=== PATIENT | male | born 1955 ===

== ENCOUNTER 2019-01-28 13:37 | Inpatient (IN) | payer MEDICARE ==
[2019-01-28] MEDS ORDERED: HEPARIN 1,000 UNIT/1 ML VIAL IV ONE (14:18)
[2019-01-28] MEDS ORDERED: SODIUM CHLORIDE 0.9% 1000 ML 1,000 ML IV ONE (14:18)
[2019-01-28] MEDS ORDERED: TICAGRELOR 90 MG TAB PO ONE (14:21)
--- NOTE | 2019-01-28 14:27 | Emergency Department Report ---
ED Chest Pain HPI - General Chief Complaint: Chest Pain Stated Complaint: CHEST PAIN Time Seen by Provider: 01/28/19 13:49 Source: patient, EMS, old records reviewed (none) Mode of arrival: Stretcher Limitations: Language Barrier (gas operations analyst used ) - History of Present Illness Initial Comments: 63-year-old male with a past medical history of diabetes, hypertension, elevated cholesterol presents to the hospital with complaints of chest pain since 9 AM. Pain started at the throat area and radiated to the chest and left arm 2-point finger. Patient had one episode of vomiting about 10 AM. Postive reported diaphoresis. Patient denies shortness of breath. Patient went to a outpatient clinic and was sent to the ER for evaluation without seeing the doctor. Patient denies history of CAD reports a preop cath and 4 years ago and he denies smoking history. Does not take aspirin daily. Patient's pain was 10/10 upon EMS arrival and decreased to 5/10 after nitroglycerin and aspirin. Severity scale (0 -10): 4 - Related Data Allergies Allergy/AdvReac Type Severity Reaction Status Date / Time No Known Allergies Allergy Unverified 01/28/19 13:50 Heart Score - HEART Score History: Moderately suspicious EKG: Non-specific Age: 45-65 Risk factors: > 3 risk factors or hx of atherosclerotic disease Troponin: 1-3x normal limit HEART Score: 6 ED Review of Systems ROS: Stated complaint: CHEST PAIN Other details as noted in HPI Comment: All other systems reviewed and negative ED Past Medical Hx - Past Medical History Hx Hypertension: Yes Hx Diabetes: Yes Additional medical history: hyperlipidemia - Surgical History Additional Surgical History: hernia repair - Social History Smoking Status: Never Smoker ED Physical Exam - General Limitations: Language Barrier - Other Other exam information: General: No acute distress Head: Atraumatic Eyes: normal appearance ENT: Moist mucous membranes Neck: Normal appearance, no midline tenderness Chest: Clear to auscultation bilaterally CV: Regular rate and rhythm Abdomen: Soft, normal bowel sounds, nontender, nondistended, no rebound or guarding Back: Normal inspection Extremity: Normal inspection infection, full range of motion, no calf tenderness or leg edema Neuro: Alert O x 3, no facial asymmetry, speech clear, no gross motor sensory deficit Psych: Appropriate behavior Skin: No rash ED Course Vital Signs 01/28/19 01/28/19 01/28/19 13:44 14:04 14:07 Temperature 98.1 F 98.3 F Pulse Rate 82 94 H Respiratory 18 18 20 Rate Blood Pressure 125/78 Blood Pressure 129/87 [Left] O2 Sat by Pulse 97 96 Oximetry 01/28/19 01/28/19 01/28/19 14:10 14:15 14:20 Temperature Pulse Rate 82 82 82 Respiratory 14 22 13 Rate Blood Pressure 129/87 120/86 120/86 Blood Pressure [Left] O2 Sat by Pulse 97 97 97 Oximetry 01/28/19 01/28/19 16:15 16:30 Temperature 97.6 F Pulse Rate 71 43 L Respiratory 18 16 Rate Blood Pressure 120/81 120/78 Blood Pressure [Left] O2 Sat by Pulse 96 96 Oximetry - Consultations Consultation #1: 01/28/19 14:26 initial ems ekg reviewed and discussed with cardiology. No reciprocal changes. Were reassessed upon arrival 14:49 repeat ekg formed upon arrival and discussed with chandelier maker. Recommend right-sided and posterior leads. 14:20 right sided and post ekg's reviewed by chandelier maker. No STEMI, but will treat stat in industrial laborer for NSTEMi. NIELS score - Niels Score Age > 65: (0) No Aspirin use within the Past 7 Days: (0) No 3 or more CAD Risk Factors: (1) Yes 2 or more Angina events in past 24 hrs: (1) Yes Known CAD with more than 50% Stenosis: (0) No Elevated Cardiac Markers: (1) Yes ST Deviation Greater than 0.5mm: (1) Yes NIELS Score: 4 ED Medical Decision Making - Lab Data Result diagrams: 01/28/19 14:14 01/28/19 14:14 Lab Results 01/28/19 01/28/19 01/28/19 Range/Units 14:14 14:14 14:14 WBC 10.2 (4.5-11.0) K/mm3 RBC 4.66 (3.65-5.03) M/mm3 Hgb 14.5 (11.8-15.2) gm/dl Hct 43.0 (35.5-45.6) % MCV 92 (84-94) fl MCH 31 (28-32) pg MCHC 34 (32-34) % RDW 13.0 L (13.2-15.2) % Plt Count 158 (140-440) K/mm3 Lymph % (Auto) 9.2 L (13.4-35.0) % [place] % (Auto) 3.4 (0.0-7.3) % Eos % (Auto) 0.3 (0.0-4.3) % Baso % (Auto) 0.3 (0.0-1.8) % Lymph # 0.9 L (1.2-5.4) K/mm3 [place] # 0.3 (0.0-0.8) K/mm3 Eos # 0.0 (0.0-0.4) K/mm3 Baso # 0.0 (0.0-0.1) K/mm3 Seg Neutrophils % 86.8 H (40.0-70.0) % Seg Neutrophils # 8.9 H (1.8-7.7) K/mm3 PT 13.7 (12.2-14.9) Sec. INR 1.06 (0.87-1.13) APTT 26.1 (24.2-36.6) Sec. Sodium 140 (137-145) mmol/L Potassium 4.1 (3.6-5.0) mmol/L Chloride 102.9 (98-107) mmol/L Carbon Dioxide 18 L (22-30) mmol/L Anion Gap 23 mmol/L BUN 18 (9-20) mg/dL Creatinine 0.9 (0.8-1.5) mg/dL Estimated GFR > 60 ml/min BUN/Creatinine Ratio 20 % Glucose 226 H (75-100) mg/dL Calcium 9.0 (8.4-10.2) mg/dL Troponin T 0.484 H* (0.00-0.029) ng/mL Triglycerides 155 H (2-149) mg/dL Cholesterol 215 H (50-199) mg/dL LDL Cholesterol Direct 156 H (50-130) mg/dL HDL Cholesterol 48 (40-59) mg/dL Cholesterol/HDL Ratio 4.47 % Blood Type Antibody Screen 01/28/19 Range/Units 14:29 WBC (4.5-11.0) K/mm3 RBC (3.65-5.03) M/mm3 Hgb (11.8-15.2) gm/dl Hct (35.5-45.6) % MCV (84-94) fl MCH (28-32) pg MCHC (32-34) % RDW (13.2-15.2) % Plt Count (140-440) K/mm3 Lymph % (Auto) (13.4-35.0) % [place] % (Auto) (0.0-7.3) % Eos % (Auto) (0.0-4.3) % Baso % (Auto) (0.0-1.8) % Lymph # (1.2-5.4) K/mm3 [place] # (0.0-0.8) K/mm3 Eos # (0.0-0.4) K/mm3 Baso # (0.0-0.1) K/mm3 Seg Neutrophils % (40.0-70.0) % Seg Neutrophils # (1.8-7.7) K/mm3 PT (12.2-14.9) Sec. INR (0.87-1.13) APTT (24.2-36.6) Sec. Sodium (137-145) mmol/L Potassium (3.6-5.0) mmol/L Chloride (98-107) mmol/L Carbon Dioxide (22-30) mmol/L Anion Gap mmol/L BUN (9-20) mg/dL Creatinine (0.8-1.5) mg/dL Estimated GFR ml/min BUN/Creatinine Ratio % Glucose (75-100) mg/dL Calcium (8.4-10.2) mg/dL Troponin T (0.00-0.029) ng/mL Triglycerides (2-149) mg/dL Cholesterol (50-199) mg/dL LDL Cholesterol Direct (50-130) mg/dL HDL Cholesterol (40-59) mg/dL Cholesterol/HDL Ratio % Blood Type O POSITIVE Antibody Screen Negative - EKG Data -: EKG Interpreted by De EKG shows normal: sinus rhythm, ST-T waves (diffuse st elevation without reciprocal changes) - EKG Data When compared to previous EKG there are: previous EKG unavailable - Radiology Data Radiology results: report reviewed CHEST 1 VIEW 01/28/2019 2:15 PM INDICATION / CLINICAL INFORMATION: Chest Pain. COMPARISON: None available. FINDINGS: SUPPORT DEVICES: None. HEART / MEDIASTINUM: No significant abnormality. LUNGS / PLEURA: There is probable mild bibasilar atelectasis. The lungs are otherwise clear. No significant pleural effusion. No pneumothorax. ADDITIONAL FINDINGS: No significant additional findings. IMPRESSION: Probable bibasilar atelectasis. - Medical Decision Making Case discussed with cardiology. Diffuse ST elevation without reciprocal changes. Patient will be treated as unstable angina/non-STEMI and taken to the industrial laborer. Heparin bolus with drip, Brillinta, and atorvastatin ordered as recommended by chandelier maker. - Differential Diagnosis [place], unstable angina, ST elevation [place] Critical Care Time: Yes Critical care time in (mins) excluding proc time.: 35 Critical care attestation.: If time is entered above; I have spent that time in minutes in the direct care of this critically ill patient, excluding procedure time. ED Disposition Clinical Impression: Chest pain, Unstable angina, Non-STEMI (non-ST elevated myocardial infarction) Disposition: OP ADMIT IP TO THIS HOSP Is pt being admited?: Yes Condition: Stable Time of Disposition: 14:32 (Dr Lamb/[facility])
[2019-01-28] MEDS ORDERED: VERAPAMIL 5 MG/2 ML INJ ONE (14:33)
[2019-01-28] MEDS ORDERED: HEPARIN/NS 5000 UNIT/500ML 1,000 ML IR ONE (14:33)
[2019-01-28] MEDS ORDERED: LIDOCAINE (2%) 20 MG/1 ML VIAL 20 ML MDV INFILTRATI ONE (14:34)
[2019-01-28] MEDS ORDERED: NITROGLYCERIN SYRINGE 3 ML ONE (14:34)
[2019-01-28] MEDS ORDERED: fentaNYL 100 MCG/2 ML INJ ONE (14:35)
[2019-01-28] MEDS ORDERED: MIDAZOLAM 2 MG/2 ML INJ ONE (14:35)
[2019-01-28 14:37] LABS: Basophils % (Auto) 0.3 % (0.0-1.8); Eosinophils % (Auto) 0.3 % (0.0-4.3); Hemoglobin 14.5 gm/dl (11.8-15.2); Lymphocytes # (Auto) 0.9 K/mm3 (1.2-5.4); Lymphocytes % (Auto) 9.2 % (13.4-35.0); Mean Corpuscular HGB Conc 34 % (32-34); Mean Corpuscular Volume 92 fl (84-94); Monocytes # (Auto) 0.3 K/mm3 (0.0-0.8); Monocytes % (Auto) 3.4 % (0.0-7.3); Platelet Count 158 K/mm3 (140-440); Red Blood Count 4.66 M/mm3 (3.65-5.03)
--- NOTE | 2019-01-28 14:40 | XRay Report ---
CHEST 1 VIEW 01/28/2019 2:15 PM INDICATION / CLINICAL INFORMATION: Chest Pain. COMPARISON: None available. FINDINGS: SUPPORT DEVICES: None. HEART / MEDIASTINUM: No significant abnormality. LUNGS / PLEURA: There is probable mild bibasilar atelectasis. The lungs are otherwise clear. No signi ficant pleural effusion. No pneumothorax. ADDITIONAL FINDINGS: No significant additional findings. IMPRESSION: Probable bibasilar atelectasis. Signer Name: Hao Estrada MD Signed: 01/28/2019 2:36 PM Workstation Name: [id number]
[2019-01-28 14:49] LABS: INR 1.06 (0.87-1.13)
[2019-01-28 14:50] LABS: Partial Thromboplastin Time 26.1 Sec. (24.2-36.6)
[2019-01-28] MEDS: HEPARIN 10,000 UNITS/10 ML VIAL ONE ×2 (14:59→15:59)
[2019-01-28] MEDS ORDERED: HEPARIN/ 0.45% NACL DRIP 25,000 UNIT/500 ML BAG IV SCH ×2 (15:00→17:00)
[2019-01-28 15:03] LABS: BUN/Creatinine Ratio 20; Blood Urea Nitrogen 18 mg/dL (9-20); Hemolysis Index 33
[2019-01-28] MEDS ORDERED: HEPARIN/NS 5000 UNIT/500ML 500 ML IR ONE (15:14)
[2019-01-28] MEDS ORDERED: NITROGLYCERIN DRIP 50 MG/250 ML BOTTLE ONE (15:25)
[2019-01-28 15:26] LABS: Chol/HDL Ratio 4.47 %; HDL Cholesterol 48 mg/dL (40-59); LDL Cholesterol,Direct 156 mg/dL (50-130)
[2019-01-28] MEDS ORDERED: ADENOSINE 60 MG/20 ML VIAL ONE (15:28)
[2019-01-28] MEDS: ADENOSINE 6 MG/2 ML INJ ONE ×2 (15:29→15:30)
[2019-01-28] MEDS ORDERED: TIROFIBAN/NS 12,500 MCG/250 ML BAG IV ONE (15:35)
[2019-01-28] MEDS: TIROFIBAN/NS 12,500 MCG/250 ML BAG IV SCH (15:43)
[2019-01-28] MEDS ORDERED: HEPARIN/ 0.45% NACL DRIP 25,000 UNIT/500 ML BAG ONE (15:44)
[2019-01-28] MEDS ORDERED: traMADol 50 MG TAB PO PRN (16:13)
[2019-01-28] MEDS ORDERED: TIROFIBAN 12.5 MG/250 ML BOLUS (50 MCG/ML) IV ONE (16:16)
[2019-01-28] MEDS ORDERED: SODIUM CHLORIDE 0.9% 1000 ML 1,000 ML IV SCH (17:00)
--- NOTE | 2019-01-28 17:58 | History and Physical Report ---
History of Present Illness Date of examination: 01/28/19 Date of admission: 01/28/19 14:45 Chief complaint: Chest pain History of present illness: 63-year-old male with a past medical history of diabetes, hypertension, HLD presents to the hospital with complaints of chest pain since 9 AM. Pain started at the throat area and radiated to the chest and left arm. Patient had one episode of vomiting about 10 AM. Postive reported diaphoresis. Patient denies shortness of breath. Patient went to a outpatient clinic and was sent to the ER for evaluation without seeing the doctor. Patient denies history of CAD reports a preop cath and 4 years ago and he denies smoking history. Does not take aspirin daily. Patient's pain was 10/10 upon EMS arrival and decreased to 5/10 after nitroglycerin and aspirin. He was found to have EKG changes and increasing Troponins. He was taken urgently to [facility] and found to Two-vessel CAD with occluded mild Left anterior descending coronary artery and a 70% mid segment left circumflex stenosis and PCI of the LAD with a Resolute Drug-Eluting stent and aspirartion thrombectomy of the LAD were done. He is being admitted for fur ther management. Review of System: Constitutional: no fever, no chills, no weight loss Ears, eyes, nose, mouth and throat: no nasal congestion, no nasal discharge, no sinus pressure, no vision change, no red eye. Neck: No neck pain or rigidity. Cardiovascular: + chest pain now resolved, no orthopnea, no palpitations, no leg swelling Respiratory: No shortness of breath, no cough, no congestion, no wheezing Gastrointestinal: no abdominal pain, no nausea, no vomiting Genitourinary : no dysuria, no hematuria Musculoskeletal: no joint swelling or muscle ache Integumentary: no rash, no pruritis Neurological: no parathesias, no numbness, no tingling Endocrine: no cold or heat intolerance, no polyuria or polydipsia Hematologic/Lymphatic: no easy bruising, no easy bleeding, no gland swelling Allergic/Immunologic: no urticaria, no angioedema. Past History Past Medical History: diabetes, hypertension, hyperlipidemia Past Surgical History: denies: No surgical history Social history: denies: smoking, alcohol abuse Family history: diabetes, hypertension Medications and Allergies Allergies Allergy/AdvReac Type Severity Reaction Status Date / Time No Known Allergies Allergy Unverified 01/28/19 13:50 Home Medications Medication Instructions Recorded Confirmed Last Taken Type Atorvastatin [Lipitor] 40 mg PO HS 01/28/19 01/28/19 01/27/19 History 40 mg Ergocalciferol [Vitamin D2] 1 tab PO QWEEK 01/28/19 01/28/19 01/24/19 History 50,000 units Lisinopril [Zestril] 5 mg PO DAILY 01/28/19 01/28/19 01/24/19 History 5 mg Magnesium Oxide 500 mg PO DAILY 01/28/19 01/28/19 01/25/19 History 500 mg Metformin HCl [metFORMIN] 1,000 mg PO BID 01/28/19 01/28/19 01/28/19 10:00 History 500 mg Sitagliptin Phosphate [Januvia] 50 mg PO DAILY 01/28/19 01/28/19 01/27/19 History 50 mg Active Meds: Active Medications Acetaminophen/Hydrocodone Bitart ([place] 5/325) 1 each PO Q4H PRN PRN Reason: Pain, Moderate (4-6) Atorvastatin Calcium (Lipitor) 80 mg PO QHS HUSSAIN Carvedilol (Coreg) 3.125 mg PO BID HUSSAIN Sodium Chloride (Nacl 0.9% 1000 Ml) 1,000 mls @ 42 mls/hr IV ONCE ONE Stop: 01/29/19 14:06 Last Admin: 01/28/19 14:28 Dose: 42 mls/hr Documented by: Sodium Chloride (Nacl 0.9% 1000 Ml) 1,000 mls @ 75 mls/hr IV DIRECT HUSSAIN Last Admin: 01/28/19 15:50 Dose: 150 mls Documented by: Heparin Sodium/Sodium Chloride (Heparin/ 0.45% Nacl-25,000 Unit/500 Ml) 25,000 unit in 500 mls @ 20 mls/hr IV TITRATE HUSSAIN; Protocol Tirofiban/Sodium Chloride (Aggrastat Drip (12.5 Mg/250 Ml)) 12,500 mcg in 250 mls @ 12.6 mls/hr IV DIRECT HUSSAIN; Protocol Stop: 01/29/19 16:59 Last Admin: 01/28/19 15:43 Dose: 12 mls Documented by: Ticagrelor (Brilinta) 90 mg PO BID HUSSAIN Tramadol HCl (Ultram) 50 mg PO Q4H PRN PRN Reason: Pain, Mild (1-3) Exam - Physical Exam Narrative exam: GENERAL: well-developed and well-nourished lying on bed appeared to be in no discomfort. HEENT: Normocephalic. Atraumatic. No conjunctival congestion or icterus. Patient has moist mucous membranes. NECK: Supple. Trachea midline. CHEST/LUNGS: Clear to auscultated bilaterally, breathing nonlabored. No wheezes crackles or rhonchi. HEART/CARDIOVASCULAR: Regular in rate and rhythm. S1 and S2 positive. ABDOMEN: Abdomen is soft, nontender. Patient has normal bowel sounds. SKIN: There is no rash. Warm and dry. NEURO: No focal motor deficit. Follows command. MUSCULOSKELETAL: No joint effusion or tenderness. EXTRIMITY: No edema, no cyanosis or clubbing. PSYCH: Cooperative. - Constitutional Vitals: Temp Pulse Resp BP Pulse Ox 97.6 F 82 18 120/82 95 01/28/19 16:15 01/28/19 17:15 01/28/19 17:15 01/28/19 17:15 01/28/19 17:15 Results - Labs CBC & Chem 7: 01/29/19 07:42 01/28/19 14:14 Labs: Abnormal lab results 01/28/19 01/28/19 Range/Units 14:14 14:14 RDW 13.0 L (13.2-15.2) % Lymph % (Auto) 9.2 L (13.4-35.0) % Lymph # 0.9 L (1.2-5.4) K/mm3 Seg Neutrophils % 86.8 H (40.0-70.0) % Seg Neutrophils # 8.9 H (1.8-7.7) K/mm3 Carbon Dioxide 18 L (22-30) mmol/L Glucose 226 H (75-100) mg/dL Troponin T 0.484 H* (0.00-0.029) ng/mL Triglycerides 155 H (2-149) mg/dL Cholesterol 215 H (50-199) mg/dL LDL Cholesterol Direct 156 H (50-130) mg/dL Assessment and Plan Acute STEMI s/p cardiac cath with PCI Diabetes mellitus type 2 Hypertension Hyperlipidemia - will admit to ICU bed - will place on Aspirin, statin - as needed SL NTG and iv morphin for pain - Monitor BP, add betablocker and ACEI if BP tolerates - order 2D echo, status post cardiac cath today, cont heparin drip -Consistent carb diet now, SSI - follow cardiology recommendation Radiological data: Chest x-ray: Probable bibasilar atelectasis.
--- NOTE | 2019-01-28 18:29 | Cardiac Catherization Report ---
PROCEDURES: 1. Left heart catheterization. 2. PCI of the LAD. 3. Aspiration thrombectomy of the LAD. INDICATIONS FOR PROCEDURE: The patient is a 63-year-old male who began experiencing substernal chest pain approximately 9:00 a.m., but did not come to the Emergency Room until approximately 3:00 p.m. The patient stated that at 9:00 a.m. the pain became a 10/10, but steadily decreased over the afternoon. At the time, the patient came to the Emergency Room, his chest pain was a 5/10. EKG showed ST elevation anteriorly with large anterior Q-waves and slight elevation in the lateral leads. No reciprocal changes. Despite having large anterior Q-waves, the patient was taken to the lab coordinator as he was continuing to have some residual chest pain. START TIME: 1458 hours. END TIME: 1538 hours. COMPLICATIONS: None. ESTIMATED BLOOD LOSS: Less than 30 mL. ESTIMATED CONTRAST USE: 180 mL. PROCEDURE IN DETAIL: The patient was brought to the cardiac catheterization lab emergently. The patient was prepped and draped in the usual sterile fashion. A 2 mL of lidocaine were injected around the right radial artery and a 6-Irish sheath was placed via modified Seldinger technique. Next, the Beals catheter was advanced over the wire across the aortic valve into left ventricle. Left ventriculogram was performed. Left ventricular pressures were measured. Then, pullback pressure was measured across the aortic valve. The catheter was then engaged into the right coronary artery and angiography performed in multiple views. Beals catheter was then removed over the wire and an EBU 3.5 guide catheter with side holes was advanced over the wire and engaged into the left main coronary artery. Angiography was performed in multiple views. RESULTS: Left main coronary artery is a large caliber vessel that bifurcates into left anterior descending and left circumflex coronary arteries. There is no significant disease within the left main coronary artery. The left anterior descending coronary artery shows mild disease in the proximal aspect. There is a moderate caliber diagonal branch that shows luminal irregularities without significant stenosis. The left anterior descending coronary artery is occluded in the mid segment. After opening with balloon, the mid and distal segments were seen to be mostly occluded and filled with thrombus. The mid and distal vessels appear small likely due to the amount of thrombus they are filled with. The left circumflex coronary artery is a moderate caliber nondominant vessel, shows luminal irregularities throughout. There is a 70% stenosis in the mid segment just prior to obtuse marginal 1. Left ventriculogram shows an ejection fraction of 25%. Aortic pressure measures 112/78, left ventricular pressure measures 115/8 with an end-diastolic pressure of 19. CONCLUSIONS: Two-vessel coronary artery disease with occluded mid left anterior descending coronary artery and a 70% mid segment left circumflex stenosis. RECOMMENDATIONS: As the patient is continuing to have chest pain, we will proceed to PCI of the LAD. PCI: The EBU 3.5 guide catheter was engaged into left main coronary artery. The left anterior descending coronary artery was wired through the lesion with a BMW wire. The BMW wire was anchored in the distal aspect of the LAD. Next, a 2.5 x 12 balloon was advanced over the wire to the lesion and inflated. The balloon was then removed. Angiography was performed and the mid and distal aspects of the vessel were seen to be small appearing and filled with thrombus. At this time, an [place] catheter was advanced over the wire and multiple passes of aspiration thrombectomy were performed in the mid and distal aspect of the vessel. The patient was given multiple doses of adenosine and nitro in order to help clear the vessel. Next, a 3.0 x 18 mm Resolute drug-eluting stent was advanced to the level of the lesion and deployed. Next, the angiography was performed in multiple views. The wire and catheter were then removed. Initial angiography demonstrated total occlusion of the mid LAD with NIELS 0 flow. Final angiography showed NIELS 2 flow throughout with 0% residual stenosis. As there is still some residual thrombus within the vessel, the patient was paced on Aggrastat and heparin drip. RECOMMENDATIONS: The patient will be transferred to the ICU. We will continue the patient on beta ranjith, dual antiplatelet therapy and statin. We will continue Aggrastat for approximately 24 hours and plan for heparin drip for 48 hours unless the patient has any signs or symptoms of bleeding. We will check an echocardiogram for evaluation of LV function. JOB# [id number] /SHANNON BRYAN
[2019-01-28 18:49] LABS: Hematocrit 42.5 % (35.5-45.6); Hemoglobin 14.7 gm/dl (11.8-15.2)
[2019-01-28 19:16] LABS: INR 1.17 (0.87-1.13)
[2019-01-28 19:46] LABS: Partial Thromboplastin Time 210.6 Sec. (24.2-36.6)
[2019-01-28] MEDS: HYDROcodone/ACETAMINOPHEN 5-325 MG TAB PO PRN (20:13)
[2019-01-28] MEDS ORDERED: DOPamine/D5W 800 MG/250 ML 800 MG/250 ML BAG IV ONE (21:40)
[2019-01-28] MEDS ORDERED: ONDANSETRON 4 MG/2 ML INJ IV PRN (22:17)
[2019-01-28] MEDS: TICAGRELOR 90 MG TAB PO SCH (22:39)
[2019-01-28] MEDS: INSULIN REGULAR, HUMAN 100 UNITS/1 ML SUB-Q SCH (22:40)
[2019-01-28] MEDS: carvediloL 3.125 MG TAB PO SCH (22:43)
--- NOTE | 2019-01-28 23:36 | Consultation ---
CARDIOLOGY CONSULT HISTORY OF PRESENT ILLNESS: The patient is a 63-year-old gentleman with past medical history significant for hypertension, diabetes and hyperlipidemia, who developed substernal chest pain with radiation to the arm at 9 AM this morning. The patient did not seek medical care immediately. He was eventually convinced to go to see a physician at an ambulatory facility. The ambulatory facility then referred the patient to the hospital. EMS was called. At that time the patient states that the pain was 10/10. At the time, patient reached the Emergency Room, patient states the pain had improved to 5/10, and in the emergency room, with medical therapy with nitro and aspirin, the patient stated the pain decreased to a 2/10. The patient has also had associated shortness of breath and diaphoresis. The patient denies orthopnea, paroxysmal nocturnal dyspnea, dizziness or syncope. EKG shows sinus rhythm with ST segment elevation in the anterior leads with large Q waves present, as well as slight 0.[address] elevation in the lateral leads. No reciprocal changes are seen. EKG findings are more medical device sales representative of subacute VA given the presence of Q waves; however, as the patient continues to have chest pain, it was decided to perform cardiac cath. PAST MEDICAL HISTORY: Significant for diabetes, hypertension, hyperlipidemia. PAST SURGICAL HISTORY: None. SOCIAL HISTORY: The patient denies any history of drinking, smoking, or drug use. The patient denies any family history of cardiac issues. PHYSICAL EXAMINATION: HEENT: Pupils equal, round, reactive to light and accommodation. Extraocular musculature intact. Normocephalic, atraumatic. NECK: Supple, no lymphadenopathy. LUNGS: Clear to auscultation bilaterally. CARDIOVASCULAR: Regular rate and rhythm, normal S1, S2. ABDOMEN: Soft, nontender, nondistended. Positive bowel sounds in all 4 quadrants. EXTREMITIES: No cyanosis, clubbing, or edema. VITALS: Blood pressure 134/92, heart rate 92, respirations 13. EKG as above. ASSESSMENT: Acute coronary syndrome with presence of dynamic EKG findings suggestive of subacute VA. At this time, we will plan for left heart catheterization as the patient continues to have chest pain. The patient has been started on aspirin, statin, and heparin. We will check an echocardiogram. JOB# [id number] /SHANNON BRYAN
[2019-01-29] MEDS: DOPamine/D5W 800 MG/250 ML 800 MG/250 ML BAG IV SCH (01:12)
[2019-01-29] MEDS: HYDROcodone/ACETAMINOPHEN 5-325 MG TAB PO PRN (07:46)
[2019-01-29] MEDS: INSULIN REGULAR, HUMAN 100 UNITS/1 ML SUB-Q SCH ×4 (07:46→22:03)
--- NOTE | 2019-01-29 08:12 | Progress Note ---
Assessment and Plan Assessment and plan: Patient is a 63 yo Kyrgyz speaking man with a history of DM type 2, hypertension and dyslipidemia who presented to [facility] ED with chest pains. He was found to have EKG changes and increasing Troponins. He was taken urgently to [facility] and found to Two-vessel CAD with occluded mild Left anterior descending coronary artery and a 70% mid segment left circumflex stenosis and PCI of the LAD with a Resolute Drug-Eluting stent and aspirartion thrombectomy of the LAD were done * nl wbc, troponin 0.484 -->4.110, LDL 156, BG 226 * EKG reported nonspecific ST changes but not STEMI * pCXR: Probable bibasilar atelectasis NSTEMI with CAD s/p PCI with FRANNY to mid LAD: treat with iv heparin, dual plt and statin Acute Diastolic heart failure: diuretics if needed, check ECHO Hypotensive, dopamine at 10: try to wean off dopamine Uncontrolled type 2 DM with hyperglycemia: increase insulin therapy Dyslipidemia: treat with statin full code DVT ppx on iv heparin drip Disposition: continue icu care today d/w Dr. Romano, try to wean off dopamine today, possible d/c tomorrow if off dopamine today History Interval history: Patient was seen and examined. Follow-up on current diagnosis of NSTEMI. No overnight events reported to me. Patient denies any chest pain, shortness breath , nausea/vomiting or severe headaches. Imaging, nursing note, chart, labs and old chart reviewed. Discussed with patient. Hospitalist Physical - Physical exam Narrative exam: Gen: WDWN, NAD, Awake, Alert, Orientated HEENT: NCAT, EOMI, PERRL, OP Clear Neck: supple, no adenopathy, no thyromegaly, no JVD CVS/Heart: RRR, normal S1S2, pulses present bilaterally Chest/Lungs: CTA B, Symmetrical chest expansion, good air entry bilaterally GI/Abdomen: soft, NTND, good bowel sounds, no guarding or rebound /Bladder: no suprapubic tenderness, no CVA or paraspinal tenderness Extermity/Skin: no c/c/e, no obvious rash MSK: FROM x 4 Neuro: CN 2-12 grossly intact, no new focal deficits Psych: calm - Constitutional Vitals: Temp Pulse Resp BP Pulse Ox 98.1 F 82 17 99/65 98 01/29/19 03:50 01/28/19 22:43 01/28/19 18:46 01/28/19 22:43 01/29/19 04:00 Results - Labs CBC & Chem 7: 01/29/19 07:42 01/28/19 14:14 Labs: Laboratory Last Values WBC 10.2 K/mm3 (4.5-11.0) 01/28/19 14:14 RBC 4.66 M/mm3 (3.65-5.03) 01/28/19 14:14 Hgb 14.7 gm/dl (11.8-15.2) 01/28/19 18:31 Hct 42.5 % (35.5-45.6) 01/28/19 18:31 MCV 92 fl (84-94) 01/28/19 14:14 MCH 31 pg (28-32) 01/28/19 14:14 MCHC 34 % (32-34) 01/28/19 14:14 RDW 13.0 % (13.2-15.2) L 01/28/19 14:14 Plt Count 144 K/mm3 (140-440) 01/28/19 18:31 Lymph % (Auto) 9.2 % (13.4-35.0) L 01/28/19 14:14 [place] % (Auto) 3.4 % (0.0-7.3) 01/28/19 14:14 Eos % (Auto) 0.3 % (0.0-4.3) 01/28/19 14:14 Baso % (Auto) 0.3 % (0.0-1.8) 01/28/19 14:14 Lymph # 0.9 K/mm3 (1.2-5.4) L 01/28/19 14:14 [place] # 0.3 K/mm3 (0.0-0.8) 01/28/19 14:14 Eos # 0.0 K/mm3 (0.0-0.4) 01/28/19 14:14 Baso # 0.0 K/mm3 (0.0-0.1) 01/28/19 14:14 Seg Neutrophils % 86.8 % (40.0-70.0) H 01/28/19 14:14 Seg Neutrophils # 8.9 K/mm3 (1.8-7.7) H 01/28/19 14:14 PT 14.8 Sec. (12.2-14.9) 01/28/19 18:31 INR 1.17 (0.87-1.13) H 01/28/19 18:31 APTT 210.6 Sec. (24.2-36.6) H* 01/28/19 18:31 Heparin Anti-Xa Level 0.93 U.I./ml (0.3-0.7) H 01/28/19 21:39 Sodium 140 mmol/L (137-145) 01/28/19 14:14 Potassium 4.1 mmol/L (3.6-5.0) 01/28/19 14:14 Chloride 102.9 mmol/L (98-107) 01/28/19 14:14 Carbon Dioxide 18 mmol/L (22-30) L 01/28/19 14:14 Anion Gap 23 mmol/L 01/28/19 14:14 BUN 18 mg/dL (9-20) 01/28/19 14:14 Creatinine 0.9 mg/dL (0.8-1.5) 01/28/19 14:14 Estimated GFR > 60 ml/min 01/28/19 14:14 BUN/Creatinine Ratio 20 % 01/28/19 14:14 Glucose 226 mg/dL (75-100) H 01/28/19 14:14 POC Glucose 186 (70-105) H 01/29/19 07:38 Calcium 9.0 mg/dL (8.4-10.2) 01/28/19 14:14 Troponin T 4.110 ng/mL (0.00-0.029) H* D 01/28/19 18:31 Triglycerides 155 mg/dL (2-149) H 01/28/19 14:14 Cholesterol 215 mg/dL (50-199) H 01/28/19 14:14 LDL Cholesterol Direct 156 mg/dL (50-130) H 01/28/19 14:14 HDL Cholesterol 48 mg/dL (40-59) 01/28/19 14:14 Cholesterol/HDL Ratio 4.47 % 01/28/19 14:14 Blood Type O POSITIVE 01/28/19 14:29 Antibody Screen Negative 01/28/19 14:29 Active Medications - Current Medications Current Medications: Generic Name Dose Route Start Last Admin Trade Name Freq PRN Reason Stop Dose Admin Acetaminophen/Hydrocodone Bitart 1 each 01/28/19 16:13 01/29/19 07:46 [place] 5/325 PO 1 each Q4H PRN Administration Pain, Moderate (4-6) Atorvastatin Calcium 80 mg 01/28/19 22:00 01/28/19 22:40 Lipitor PO 80 mg QHS HUSSAIN Administration Carvedilol 3.125 mg 01/28/19 22:00 01/28/19 22:43 Coreg PO Not Given BID HUSSAIN Ergocalciferol 50,000 unit 01/31/19 10:00 Vitamin D2 PO Sa HUSSAIN Sodium Chloride 1,000 mls @ 42 mls/hr 01/28/19 14:18 01/28/19 14:28 Nacl 0.9% 1000 Ml IV 01/29/19 14:06 42 mls/hr ONCE ONE Administration Sodium Chloride 1,000 mls @ 75 mls/hr 01/28/19 17:00 01/28/19 15:50 Nacl 0.9% 1000 Ml IV 150 mls DIRECT HUSSAIN Administration Heparin Sodium/Sodium Chloride 25,000 unit in 500 mls @ 20 mls/hr 01/28/19 17:00 01/29/19 00:56 Heparin/ 0.45% Nacl-25,000 Unit/500 Ml IV 800 units/hr TITRATE HUSSAIN 16 mls/hr Titration Protocol 1,000 UNITS/HR Tirofiban/Sodium Chloride 12,500 mcg in 250 mls @ 12.6 mls/hr 01/28/19 17:00 01/28/19 15:43 Aggrastat Drip (12.5 Mg/250 Ml) IV 01/29/19 16:59 12 mls DIRECT HUSSAIN Administration Protocol Per Protocol Dopamine HCl/Dextrose 800 mg in 250 mls @ 6.563 mls/hr 01/28/19 21:55 01/29/19 07:25 Intropin Drip 800 Mg/D5w 250 Ml IV 10 mcg/kg/min TITR HUSSAIN 13.125 mls/hr Titration Protocol 5 MCG/KG/MIN Insulin Human Regular 0 units 01/28/19 22:00 01/29/19 07:46 Humulin R SUB-Q 1 units ACHS HUSSAIN Administration Protocol Ondansetron HCl 4 mg 01/28/19 22:17 01/29/19 04:18 Zofran IV 4 mg Q4H PRN Administration Nausea And Vomiting Ticagrelor 90 mg 01/28/19 22:00 01/28/19 22:39 Brilinta PO 90 mg BID HUSSAIN Administration Tramadol HCl 50 mg 01/28/19 16:13 Ultram PO Q4H PRN Pain, Mild (1-3)
[2019-01-29 08:17] LABS: Hematocrit 42.8 % (35.5-45.6); Hemoglobin 14.5 gm/dl (11.8-15.2)
[2019-01-29] MEDS: carvediloL 3.125 MG TAB PO SCH ×2 (10:26→22:04)
[2019-01-29] MEDS: TICAGRELOR 90 MG TAB PO SCH ×2 (10:26→22:02)
[2019-01-29] MEDS: ASPIRIN EC 81 MG TAB PO SCH (10:26)
--- NOTE | 2019-01-29 10:31 | Progress Note ---
Assessment and Plan STEMI s/p aspiration thrombectomy of the LAD and PCI of the LAD using drug eluting stents. On DAPT with Brilinta and aspirin. medical therapy recommended for circumflex stenosis Diabetes Hyperlipidema Echocardiogram has been completed, results are pending. Subjective Date of service: 01/29/19 Interval history: Patient is resting in bed comfortably. No cardiac complaints reported. TR band of right radial is in place. Objective Vital Signs Temp Pulse Resp BP BP Pulse Ox 01/29/19 10:26 70 96/56 01/29/19 08:00 98.5 F 01/29/19 04:00 98 01/29/19 03:50 98.1 F 01/29/19 00:00 98.3 F 01/28/19 22:43 82 99/65 01/28/19 22:00 82 01/28/19 20:00 97.8 F 01/28/19 18:46 17 96 01/28/19 18:30 76 20 122/88 95 01/28/19 18:00 83 8 L 125/82 95 01/28/19 17:15 82 18 120/82 95 01/28/19 17:00 83 10 L 115/76 95 01/28/19 16:46 17 96 01/28/19 16:45 80 17 108/76 96 01/28/19 16:30 73 16 120/78 96 01/28/19 16:15 97.6 F 71 18 120/81 96 01/28/19 14:20 82 13 120/86 97 01/28/19 14:15 82 22 120/86 97 01/28/19 14:10 82 14 129/87 97 01/28/19 14:07 20 01/28/19 14:04 98.3 F 94 H 18 129/87 96 01/28/19 13:44 98.1 F 82 18 125/78 97 - Physical Examination General: No Apparent Distress HEENT: Positive: PERRL Neck: Positive: trachea midline Cardiac: Positive: Reg Rate and Rhythm Lungs: Positive: Decreased Breath Sounds - Labs and Meds Coagulation 01/28/19 01/28/19 Range/Units 14:14 18:31 PT 13.7 14.8 (12.2-14.9) Sec. INR 1.06 1.17 H (0.87-1.13) APTT 26.1 210.6 H* (24.2-36.6) Sec. Lipids 01/28/19 Range/Units 14:14 Triglycerides 155 H (2-149) mg/dL Cholesterol 215 H (50-199) mg/dL HDL Cholesterol 48 (40-59) mg/dL Cholesterol/HDL Ratio 4.47 % CBC 01/28/19 01/28/19 01/29/19 Range/Units 14:14 18:31 07:42 WBC 10.2 (4.5-11.0) K/mm3 RBC 4.66 (3.65-5.03) M/mm3 Hgb 14.5 14.7 14.5 (11.8-15.2) gm/dl Hct 43.0 42.5 42.8 (35.5-45.6) % Plt Count 158 144 155 (140-440) K/mm3 Lymph # 0.9 L (1.2-5.4) K/mm3 [place] # 0.3 (0.0-0.8) K/mm3 Eos # 0.0 (0.0-0.4) K/mm3 Baso # 0.0 (0.0-0.1) K/mm3 Comprehensive Metabolic Panel 01/28/19 Range/Units 14:14 Sodium 140 (137-145) mmol/L Potassium 4.1 (3.6-5.0) mmol/L Chloride 102.9 (98-107) mmol/L Carbon Dioxide 18 L (22-30) mmol/L BUN 18 (9-20) mg/dL Creatinine 0.9 (0.8-1.5) mg/dL Glucose 226 H (75-100) mg/dL Calcium 9.0 (8.4-10.2) mg/dL
[2019-01-29] MEDS: TIROFIBAN/NS 12,500 MCG/250 ML BAG IV SCH (10:34)
--- NOTE | 2019-01-29 10:35 | Consultation ---
History of Present Illness - Reason for Consult Consult date: 01/29/19 Post PCI Requesting physician: SUMAN ROLON - History of Present Illness 63 y/o male with hypertension and hyperlipdemia admitted to the ICU after presenting to the ED with chest pain. [facility] where he had PCI to LAD. patient now is chest pain free but became hypotensive throughout the night. H/H remains stable. No acute evidence of bleeding. Started dopamine and is currently at 10. Past History Past Medical History: diabetes, hypertension, hyperlipidemia Medications and Allergies Allergies Allergy/AdvReac Type Severity Reaction Status Date / Time No Known Allergies Allergy Unverified 01/28/19 13:50 Home Medications Medication Instructions Recorded Confirmed Last Taken Type Atorvastatin [Lipitor] 40 mg PO HS 01/28/19 01/28/19 01/27/19 History 40 mg Ergocalciferol [Vitamin D2] 1 tab PO QWEEK 01/28/19 01/28/19 01/24/19 History 50,000 units Lisinopril [Zestril] 5 mg PO DAILY 01/28/19 01/28/19 01/24/19 History 5 mg Magnesium Oxide 500 mg PO DAILY 01/28/19 01/28/19 01/25/19 History 500 mg Metformin HCl [metFORMIN] 1,000 mg PO BID 01/28/19 01/28/19 01/28/19 10:00 History 500 mg Sitagliptin Phosphate [Januvia] 50 mg PO DAILY 01/28/19 01/28/19 01/27/19 History 50 mg Active Meds: Active Medications Acetaminophen/Hydrocodone Bitart ([place] 5/325) 1 each PO Q4H PRN PRN Reason: Pain, Moderate (4-6) Last Admin: 01/29/19 07:46 Dose: 1 each Documented by: Aspirin (Halfprin Ec) 81 mg PO QDAY [facility] Last Admin: 01/29/19 10:26 Dose: 81 mg Documented by: Atorvastatin Calcium (Lipitor) 80 mg PO QHS [facility] Last Admin: 01/28/19 22:40 Dose: 80 mg Documented by: Carvedilol (Coreg) 3.125 mg PO BID [facility] Last Admin: 01/29/19 10:26 Dose: Not Given Documented by: Ergocalciferol (Vitamin D2) 50,000 unit PO Sa [facility] Sodium Chloride (Nacl 0.9% 1000 Ml) 1,000 mls @ 42 mls/hr IV ONCE ONE Stop: 01/29/19 14:06 Last Admin: 01/28/19 14:28 Dose: 42 mls/hr Documented by: Sodium Chloride (Nacl 0.9% 1000 Ml) 1,000 mls @ 75 mls/hr IV DIRECT HUSSAIN Last Admin: 01/28/19 15:50 Dose: 150 mls Documented by: Tirofiban/Sodium Chloride (Aggrastat Drip (12.5 Mg/250 Ml)) 12,500 mcg in 250 mls @ 12.6 mls/hr IV DIRECT HUSSAIN; Protocol Stop: 01/29/19 16:59 Last Admin: 01/28/19 15:43 Dose: 12 mls Documented by: Dopamine HCl/Dextrose (Intropin Drip 800 Mg/D5w 250 Ml) 800 mg in 250 mls @ 6.563 mls/hr IV TITR HUSSAIN; Protocol Last Titration: 01/29/19 07:25 Dose: 10 mcg/kg/min, 13.125 mls/hr Documented by: Insulin Human Regular (Humulin R) 0 units SUB-Q ACHS HUSSAIN; Protocol Last Admin: 01/29/19 07:46 Dose: 1 units Documented by: Ondansetron HCl (Zofran) 4 mg IV Q4H PRN PRN Reason: Nausea And Vomiting Last Admin: 01/29/19 04:18 Dose: 4 mg Documented by: Ticagrelor (Brilinta) 90 mg PO BID HUSSAIN Last Admin: 01/29/19 10:26 Dose: 90 mg Documented by: Tramadol HCl (Ultram) 50 mg PO Q4H PRN PRN Reason: Pain, Mild (1-3) Exam - Constitutional Vitals: Temp Pulse Resp BP Pulse Ox 98.5 F 70 17 96/56 98 01/29/19 08:00 01/29/19 10:26 01/28/19 18:46 01/29/19 10:26 01/29/19 04:00 General appearance: Present: no acute distress - EENT Eyes: Present: PERRL, EOM intact ENT: hearing intact - Neck Neck: Present: supple - Respiratory Respiratory effort: normal Respiratory: bilateral: CTA - Cardiovascular Rhythm: regular Heart Sounds: Present: S1 & S2 - Abdominal General gastrointestinal: Present: soft, non-tender Results - Labs CBC & Chem 7: 01/29/19 07:42 01/28/19 14:14 Labs: Abnormal lab results 01/28/19 01/28/19 01/28/19 Range/Units 14:14 14:14 18:31 RDW 13.0 L (13.2-15.2) % Lymph % (Auto) 9.2 L (13.4-35.0) % Lymph # 0.9 L (1.2-5.4) K/mm3 Seg Neutrophils % 86.8 H (40.0-70.0) % Seg Neutrophils # 8.9 H (1.8-7.7) K/mm3 INR (0.87-1.13) APTT (24.2-36.6) Sec. Heparin Anti-Xa Level (0.3-0.7) U.I./ml Carbon Dioxide 18 L (22-30) mmol/L Glucose 226 H (75-100) mg/dL POC Glucose (70-105) Troponin T 0.484 H* 4.110 H* D (0.00-0.029) ng/mL Triglycerides 155 H (2-149) mg/dL Cholesterol 215 H (50-199) mg/dL LDL Cholesterol Direct 156 H (50-130) mg/dL 01/28/19 01/28/19 01/28/19 Range/Units 18:31 21:38 21:39 RDW (13.2-15.2) % Lymph % (Auto) (13.4-35.0) % Lymph # (1.2-5.4) K/mm3 Seg Neutrophils % (40.0-70.0) % Seg Neutrophils # (1.8-7.7) K/mm3 INR 1.17 H (0.87-1.13) APTT 210.6 H* (24.2-36.6) Sec. Heparin Anti-Xa Level 0.93 H (0.3-0.7) U.I./ml Carbon Dioxide (22-30) mmol/L Glucose (75-100) mg/dL POC Glucose 182 H (70-105) Troponin T (0.00-0.029) ng/mL Triglycerides (2-149) mg/dL Cholesterol (50-199) mg/dL LDL Cholesterol Direct (50-130) mg/dL 01/29/19 Range/Units 07:38 RDW (13.2-15.2) % Lymph % (Auto) (13.4-35.0) % Lymph # (1.2-5.4) K/mm3 Seg Neutrophils % (40.0-70.0) % Seg Neutrophils # (1.8-7.7) K/mm3 INR (0.87-1.13) APTT (24.2-36.6) Sec. Heparin Anti-Xa Level (0.3-0.7) U.I./ml Carbon Dioxide (22-30) mmol/L Glucose (75-100) mg/dL POC Glucose 186 H (70-105) Troponin T (0.00-0.029) ng/mL Triglycerides (2-149) mg/dL Cholesterol (50-199) mg/dL LDL Cholesterol Direct (50-130) mg/dL - Imaging and Cardiology Chest x-ray: image reviewed (clear CXR) Assessment and Plan 63 y/o male with NSTEMI, now hypotensive. 1. Hold BB 2. hold KAMILAH 3. Continue aggrastat and heparin drip 4. If any acute changes, stat EKG 5. Wean dopamine as tolerated for MAPs >65 6. Echo done awaiting read. Guarded prognosis. CCT 31 minutes
[2019-01-30] MEDS: INSULIN REGULAR, HUMAN 100 UNITS/1 ML SUB-Q SCH ×4 (05:30→22:42)
[2019-01-30 05:52] LABS: Hematocrit 42.8 % (35.5-45.6); Hemoglobin 14.5 gm/dl (11.8-15.2); Mean Corpuscular HGB Conc 34 % (32-34); Mean Corpuscular Volume 92 fl (84-94); Platelet Count 155 K/mm3 (140-440); Red Blood Count 4.66 M/mm3 (3.65-5.03); Red Cell Distribution Width 12.8 % (13.2-15.2)
[2019-01-30 06:08] LABS: BUN/Creatinine Ratio 16; Blood Urea Nitrogen 13 mg/dL (9-20); Calcium 8.2 mg/dL (8.4-10.2); Hemolysis Index 7
[2019-01-30] MEDS: DOPamine/D5W 800 MG/250 ML 800 MG/250 ML BAG IV SCH (06:31)
[2019-01-30] MEDS: TICAGRELOR 90 MG TAB PO SCH ×2 (09:23→22:41)
[2019-01-30] MEDS: ASPIRIN EC 81 MG TAB PO SCH (09:23)
--- NOTE | 2019-01-30 09:56 | Progress Note ---
Assessment and Plan 63 y/o male with NSTEMI, now hypotensive. 1. Hold BB 2. hold KAMILAH 3. Continue aggrastat and heparin drip 4. If any acute changes, stat EKG 5. Wean dopamine as tolerated for MAPs >65, should be able to turn off today. 6. Echo shows EF of 40-45%. Guarded prognosis. CCT 31 minutes Subjective Date of service: 01/30/19 Interval history: No acute events. Dopamine down to 2. MAP is 71. Tito at bedside. Patient had no chest pain overnight. Remains on room air. Objective - Constitutional Vitals: Vital Signs - 12hr 01/29/19 01/29/19 01/29/19 22:00 22:04 22:11 Temperature Pulse Rate 88 79 88 Respiratory 15 16 Rate Blood Pressure 81/55 88/61 88/61 O2 Sat by Pulse 95 96 Oximetry 01/29/19 01/29/19 01/29/19 22:21 22:30 22:41 Temperature Pulse Rate 88 75 71 Respiratory 14 16 16 Rate Blood Pressure 114/77 101/63 101/63 O2 Sat by Pulse 97 95 96 Oximetry 01/29/19 01/29/19 01/29/19 22:51 22:58 23:00 Temperature 98.8 F Pulse Rate 72 74 Respiratory 16 17 Rate Blood Pressure 95/59 89/61 O2 Sat by Pulse 96 94 Oximetry 01/29/19 01/29/19 01/29/19 23:11 23:21 23:25 Temperature Pulse Rate 74 72 77 Respiratory 14 10 L 14 Rate Blood Pressure 89/61 91/58 91/58 O2 Sat by Pulse 94 95 95 Oximetry 01/29/19 01/29/19 01/29/19 23:30 23:41 23:51 Temperature Pulse Rate 75 74 84 Respiratory 17 9 L 11 L Rate Blood Pressure 86/56 86/56 86/57 O2 Sat by Pulse 95 94 96 Oximetry 01/30/19 01/30/19 01/30/19 00:00 00:11 00:21 Temperature Pulse Rate 72 73 70 Respiratory 13 16 15 Rate Blood Pressure 77/49 86/57 87/53 O2 Sat by Pulse 95 94 95 Oximetry 01/30/19 01/30/19 01/30/19 00:30 00:41 00:51 Temperature Pulse Rate 73 65 69 Respiratory 17 15 19 Rate Blood Pressure 77/47 94/60 99/61 O2 Sat by Pulse 95 95 95 Oximetry 01/30/19 01/30/19 01/30/19 01:00 01:11 01:21 Temperature Pulse Rate 73 64 71 Respiratory 13 19 13 Rate Blood Pressure 106/61 106/61 103/49 O2 Sat by Pulse 96 94 94 Oximetry 01/30/19 01/30/19 01/30/19 01:30 01:41 01:51 Temperature Pulse Rate 64 61 65 Respiratory 16 19 17 Rate Blood Pressure 89/53 106/61 97/52 O2 Sat by Pulse 95 96 93 Oximetry 01/30/19 01/30/19 01/30/19 02:00 02:11 02:21 Temperature Pulse Rate 62 65 64 Respiratory 17 16 15 Rate Blood Pressure 98/52 98/52 98/49 O2 Sat by Pulse 94 92 93 Oximetry 01/30/19 01/30/19 01/30/19 02:30 02:41 02:51 Temperature Pulse Rate 66 68 77 Respiratory 17 15 21 Rate Blood Pressure 98/55 98/55 98/58 O2 Sat by Pulse 94 94 94 Oximetry 01/30/19 01/30/19 01/30/19 03:00 03:11 03:18 Temperature 98.9 F Pulse Rate 77 63 Respiratory 21 16 Rate Blood Pressure 107/66 107/66 O2 Sat by Pulse 95 95 Oximetry 01/30/19 01/30/19 01/30/19 03:21 03:30 03:41 Temperature Pulse Rate 61 95 H 63 Respiratory 16 18 16 Rate Blood Pressure 88/56 116/91 116/91 O2 Sat by Pulse 93 95 93 Oximetry 01/30/19 01/30/19 01/30/19 03:51 04:00 04:11 Temperature Pulse Rate 66 64 60 Respiratory 12 15 18 Rate Blood Pressure 103/62 101/63 103/62 O2 Sat by Pulse 92 93 94 Oximetry 01/30/19 01/30/19 01/30/19 04:21 04:30 04:41 Temperature Pulse Rate 64 61 67 Respiratory 15 16 12 Rate Blood Pressure 98/59 104/56 104/56 O2 Sat by Pulse 93 95 93 Oximetry 01/30/19 01/30/19 01/30/19 04:51 05:00 05:11 Temperature Pulse Rate 58 L 68 62 Respiratory 10 L 15 14 Rate Blood Pressure 96/54 98/62 98/62 O2 Sat by Pulse 94 95 93 Oximetry 01/30/19 01/30/19 01/30/19 05:21 05:30 05:41 Temperature Pulse Rate 56 L 63 60 Respiratory 12 14 15 Rate Blood Pressure 101/62 89/49 89/49 O2 Sat by Pulse 96 95 94 Oximetry 01/30/19 01/30/19 01/30/19 05:51 06:00 06:11 Temperature Pulse Rate 63 73 78 Respiratory 16 21 15 Rate Blood Pressure 97/49 94/46 94/46 O2 Sat by Pulse 94 97 94 Oximetry 01/30/19 01/30/19 01/30/19 06:21 06:31 06:41 Temperature Pulse Rate 65 87 85 Respiratory 13 12 16 Rate Blood Pressure 101/67 72/41 101/67 O2 Sat by Pulse 94 95 96 Oximetry 01/30/19 01/30/19 01/30/19 06:51 07:00 07:11 Temperature Pulse Rate 90 73 75 Respiratory 16 16 13 Rate Blood Pressure 92/62 94/64 92/62 O2 Sat by Pulse 95 93 94 Oximetry 01/30/19 01/30/19 01/30/19 07:21 07:30 07:41 Temperature Pulse Rate 86 66 72 Respiratory 15 14 18 Rate Blood Pressure 97/49 102/61 102/61 O2 Sat by Pulse 94 97 94 Oximetry 01/30/19 01/30/19 01/30/19 07:51 08:00 08:11 Temperature Pulse Rate 75 70 66 Respiratory 15 18 15 Rate Blood Pressure 91/58 84/55 84/55 O2 Sat by Pulse 94 94 95 Oximetry 01/30/19 01/30/19 01/30/19 08:21 08:30 08:41 Temperature Pulse Rate 72 68 80 Respiratory 11 L 18 24 Rate Blood Pressure 88/55 90/59 90/59 O2 Sat by Pulse 94 94 94 Oximetry 01/30/19 01/30/19 01/30/19 08:51 09:00 09:11 Temperature Pulse Rate 81 84 85 Respiratory 10 L 16 18 Rate Blood Pressure 85/63 87/61 87/61 O2 Sat by Pulse 95 95 95 Oximetry General appearance: Present: no acute distress, well-nourished - EENT Eyes: PERRL, EOM intact ENT: hearing intact, clear oral mucosa - Neck Neck: supple, normal ROM - Respiratory Respiratory effort: normal Respiratory: bilateral: CTA - Cardiovascular Rhythm: regular Heart Sounds: Present: S1 & S2 Extremities: no ischemia - Gastrointestinal General gastrointestinal: Present: soft, non-tender, normal bowel sounds Rectal Exam: deferred - Genitourinary Male genitourinary: deferred - Musculoskeletal Musculoskeletal: strength equal bilaterally - Labs CBC & Chem 7: 01/30/19 04:58 01/30/19 04:58 Labs: Abnormal lab results 01/28/19 01/29/19 01/29/19 Range/Units 15:53 11:44 16:57 RDW (13.2-15.2) % Activated Clotting Time 296 H (74-137) Carbon Dioxide (22-30) mmol/L Glucose (75-100) mg/dL POC Glucose 254 H 233 H (70-105) Calcium (8.4-10.2) mg/dL 01/29/19 01/30/19 01/30/19 Range/Units 21:13 04:58 04:58 RDW 12.8 L (13.2-15.2) % Activated Clotting Time (74-137) Carbon Dioxide 20 L (22-30) mmol/L Glucose 230 H (75-100) mg/dL POC Glucose 227 H (70-105) Calcium 8.2 L (8.4-10.2) mg/dL Medications & Allergies - Medications Allergies/Adverse Reactions: Allergies No Known Allergies Allergy (Unverified 01/28/19 13:50) Home Medications: Home Medications Medication Instructions Recorded Confirmed Last Taken Type Atorvastatin [Lipitor] 40 mg PO HS 01/28/19 01/28/19 01/27/19 History 40 mg Ergocalciferol [Vitamin D2] 1 tab PO QWEEK 01/28/19 01/28/19 01/24/19 History 50,000 units Lisinopril [Zestril] 5 mg PO DAILY 01/28/19 01/28/19 01/24/19 History 5 mg Magnesium Oxide 500 mg PO DAILY 01/28/19 01/28/19 01/25/19 History 500 mg Metformin HCl [metFORMIN] 1,000 mg PO BID 01/28/19 01/28/19 01/28/19 10:00 Hi story 500 mg Sitagliptin Phosphate [Januvia] 50 mg PO DAILY 01/28/19 01/28/19 01/27/19 Histo ry 50 mg Active Medications: Generic Name Dose Route Start Last Admin Trade Name Freq PRN Reason Stop Dose Admin Acetaminophen/Hydrocodone Bitart 1 each 01/28/19 16:13 01/29/19 07:46 [place] 5/325 PO 1 each Q4H PRN Administration Pain, Moderate (4-6) Aspirin 81 mg 01/29/19 10:00 01/30/19 09:23 Halfprin Ec PO 81 mg QDAY HUSSAIN Administration Atorvastatin Calcium 80 mg 01/28/19 22:00 01/29/19 22:03 Lipitor PO 80 mg QHS HUSSAIN Administration Carvedilol 3.125 mg 01/28/19 22:00 01/29/19 22:04 Coreg PO Not Given BID HUSSAIN Ergocalciferol 50,000 unit 01/31/19 10:00 Vitamin D2 PO Sa HUSSAIN Sodium Chloride 1,000 mls @ 75 mls/hr 01/28/19 17:00 01/28/19 15:50 Nacl 0.9% 1000 Ml IV 150 mls DIRECT HUSSAIN Administration Dopamine HCl/Dextrose 800 mg in 250 mls @ 6.563 mls/hr 01/28/19 21:55 01/30/19 08:50 Intropin Drip 800 Mg/D5w 250 Ml IV 2 mcg/kg/min TITR HUSSAIN 2.625 mls/hr Titration Protocol 5 MCG/KG/MIN Insulin Human Regular 0 units 01/28/19 22:00 01/30/19 08:00 Humulin R SUB-Q 2 units ACHS HUSSAIN Administration Protocol Ondansetron HCl 4 mg 01/28/19 22:17 01/29/19 04:18 Zofran IV 4 mg Q4H PRN Administration Nausea And Vomiting Ticagrelor 90 mg 01/28/19 22:00 01/30/19 09:23 Brilinta PO 90 mg BID HUSSAIN Administration Tramadol HCl 50 mg 01/28/19 16:13 Ultram PO Q4H PRN Pain, Mild (1-3)
--- NOTE | 2019-01-30 10:25 | Progress Note ---
Assessment and Plan Acute anterior wall NH s/p aspiration thrombectomy of the mid LAD and PCI of the LAD using drug eluting stents. On DAPT with Brilinta and aspirin. Diabetes Hyperlipidema Echocardiogram reports a mildly decrease LV systolic function, ejection fraction 40-45%. Continue dual antiplatelet therapy with Brilinta and aspirin. After load agents and beta blockers are held until his blood pressure is stable off pressors. Subjective Date of service: 01/30/19 Interval history: Patient denies chest pain. He remains on Dopamine. Objective Vital Signs Temp Pulse Pulse Resp BP Pulse Ox 01/30/19 10:00 86 21 94/64 95 01/30/19 09:51 99 H 18 90/64 95 01/30/19 09:41 94 H 20 90/64 97 01/30/19 09:30 79 13 90/64 94 01/30/19 09:21 92 H 17 92/63 95 01/30/19 09:11 85 18 87/61 95 01/30/19 09:00 84 16 87/61 95 01/30/19 08:51 81 10 L 85/63 95 01/30/19 08:41 80 24 90/59 94 01/30/19 08:30 68 18 90/59 94 01/30/19 08:21 72 11 L 88/55 94 01/30/19 08:11 66 15 84/55 95 01/30/19 08:00 97.6 F 70 18 84/55 94 01/30/19 07:51 75 15 91/58 94 01/30/19 07:41 72 18 102/61 94 01/30/19 07:30 66 14 102/61 97 01/30/19 07:21 86 15 97/49 94 01/30/19 07:11 75 13 92/62 94 01/30/19 07:00 73 16 94/64 93 01/30/19 06:51 90 16 92/62 95 01/30/19 06:41 85 16 101/67 96 01/30/19 06:31 87 12 72/41 95 01/30/19 06:21 65 13 101/67 94 01/30/19 06:11 78 15 94/46 94 01/30/19 06:00 73 21 94/46 97 01/30/19 05:51 63 16 97/49 94 01/30/19 05:41 60 15 89/49 94 01/30/19 05:30 63 14 89/49 95 01/30/19 05:21 56 L 12 101/62 96 01/30/19 05:11 62 14 98/62 93 01/30/19 05:00 68 15 98/62 95 01/30/19 04:51 58 L 10 L 96/54 94 01/30/19 04:41 67 12 104/56 93 01/30/19 04:30 61 16 104/56 95 01/30/19 04:21 64 15 98/59 93 01/30/19 04:11 60 18 103/62 94 01/30/19 04:00 64 15 101/63 93 01/30/19 03:51 66 12 103/62 92 01/30/19 03:41 63 16 116/91 93 01/30/19 03:30 95 H 18 116/91 95 01/30/19 03:21 61 16 88/56 93 01/30/19 03:18 98.9 F 01/30/19 03:11 63 16 107/66 95 01/30/19 03:00 77 21 107/66 95 01/30/19 02:51 77 21 98/58 94 01/30/19 02:41 68 15 98/55 94 01/30/19 02:30 66 17 98/55 94 01/30/19 02:21 64 15 98/49 93 01/30/19 02:11 65 16 98/52 92 01/30/19 02:00 62 17 98/52 94 01/30/19 01:51 65 17 97/52 93 01/30/19 01:41 61 19 106/61 96 01/30/19 01:30 64 16 89/53 95 01/30/19 01:21 71 13 103/49 94 01/30/19 01:11 64 19 106/61 94 01/30/19 01:00 73 13 106/61 96 01/30/19 00:51 69 19 99/61 95 01/30/19 00:41 65 15 94/60 95 01/30/19 00:30 73 17 77/47 95 01/30/19 00:21 70 15 87/53 95 01/30/19 00:11 73 16 86/57 94 01/30/19 00:00 72 13 77/49 95 01/29/19 23:51 84 11 L 86/57 96 01/29/19 23:41 74 9 L 86/56 94 01/29/19 23:30 75 17 86/56 95 01/29/19 23:25 77 14 91/58 95 01/29/19 23:21 72 10 L 91/58 95 01/29/19 23:11 74 14 89/61 94 01/29/19 23:00 74 17 89/61 94 01/29/19 22:58 98.8 F 01/29/19 22:51 72 16 95/59 96 01/29/19 22:41 71 16 101/63 96 01/29/19 22:30 75 16 101/63 95 01/29/19 22:21 88 14 114/77 97 01/29/19 22:11 88 16 88/61 96 01/29/19 22:04 79 88/61 01/29/19 22:00 88 15 81/55 95 01/29/19 21:51 75 18 90/60 93 01/29/19 21:41 102 H 21 92/59 97 01/29/19 21:30 76 16 92/59 95 01/29/19 21:21 79 17 91/59 93 01/29/19 21:11 84 16 97/63 93 01/29/19 21:00 80 17 97/63 95 01/29/19 20:51 75 18 92/59 94 01/29/19 20:41 81 18 91/63 94 01/29/19 20:32 96 01/29/19 20:30 80 20 91/63 94 01/29/19 20:21 77 16 92/61 95 01/29/19 20:11 89 17 94/64 92 01/29/19 20:00 76 18 94/64 93 01/29/19 19:51 82 15 100/74 97 01/29/19 19:41 85 12 93/60 95 01/29/19 19:39 98.5 F 01/29/19 19:30 77 19 84/57 95 01/29/19 19:21 86 12 95/67 94 01/29/19 19:11 71 13 97 01/29/19 19:07 80 16 96 01/29/19 18:50 78 20 90/64 95 01/29/19 18:40 81 26 H 96/63 96 01/29/19 18:30 82 16 96/63 95 01/29/19 18:20 91 H 13 99/63 94 01/29/19 18:10 96 H 14 88/66 95 01/29/19 18:00 80 13 88/66 96 01/29/19 17:50 73 16 93/60 95 01/29/19 17:40 93 H 16 99/64 96 01/29/19 17:30 86 12 99/64 95 01/29/19 17:20 81 27 H 102/65 95 01/29/19 17:10 74 22 101/63 94 01/29/19 17:00 74 11 L 101/63 94 01/29/19 16:50 70 10 L 94/59 95 01/29/19 16:40 67 13 97/58 94 01/29/19 16:30 65 11 L 97/58 94 01/29/19 16:20 84 15 98/45 96 01/29/19 16:10 66 16 96/50 95 01/29/19 16:00 98.3 F 64 64 17 96/50 96 01/29/19 15:50 62 13 95/42 94 01/29/19 15:40 63 19 91/47 94 01/29/19 15:30 61 18 91/47 95 01/29/19 15:20 66 19 91/48 95 01/29/19 15:10 65 17 75/43 96 01/29/19 15:00 67 18 75/43 96 01/29/19 14:50 67 16 89/58 93 01/29/19 14:40 67 16 96/59 93 01/29/19 14:30 64 17 96/59 95 01/29/19 14:20 65 15 97/57 95 01/29/19 14:10 70 17 100/60 95 01/29/19 14:00 73 18 100/60 95 01/29/19 13:50 77 14 85/51 95 01/29/19 13:40 76 14 97/62 95 01/29/19 13:30 76 19 97/62 95 01/29/19 13:20 73 15 90/60 93 01/29/19 13:10 81 10 L 90/60 96 01/29/19 13:00 77 11 L 90/60 94 01/29/19 12:50 78 14 101/66 94 01/29/19 12:40 82 12 92/59 94 01/29/19 12:30 78 20 92/59 95 01/29/19 12:20 77 11 L 92/59 95 01/29/19 12:10 75 14 94/60 96 01/29/19 12:01 98.5 F 01/29/19 12:00 66 75 14 94/60 96 01/29/19 11:58 67 01/29/19 11:50 66 17 96/60 94 01/29/19 11:40 77 18 93/59 93 01/29/19 11:30 63 16 93/59 94 01/29/19 11:20 65 17 94/58 93 01/29/19 11:10 65 17 94/59 94 01/29/19 11:00 66 18 94/59 94 01/29/19 10:50 70 16 95/57 94 01/29/19 10:40 68 21 95/56 94 01/29/19 10:30 71 17 89/55 94 01/29/19 10:26 70 96/56 - Physical Examination General: No Apparent Distress HEENT: Positive: PERRL Neck: Positive: trachea midline Cardiac: Positive: Reg Rate and Rhythm Lungs: Positive: Decreased Breath Sounds Neuro: Positive: Grossly Intact - Labs and Meds CBC 01/30/19 Range/Units 04:58 WBC 8.2 (4.5-11.0) K/mm3 RBC 4.66 (3.65-5.03) M/mm3 Hgb 14.5 (11.8-15.2) gm/dl Hct 42.8 (35.5-45.6) % Plt Count 155 (140-440) K/mm3 Comprehensive Metabolic Panel 01/30/19 Range/Units 04:58 Sodium 138 (137-145) mmol/L Potassium 4.0 (3.6-5.0) mmol/L Chloride 103.9 (98-107) mmol/L Carbon Dioxide 20 L (22-30) mmol/L BUN 13 (9-20) mg/dL Creatinine 0.8 (0.8-1.5) mg/dL Glucose 230 H (75-100) mg/dL Calcium 8.2 L (8.4-10.2) mg/dL
[2019-01-30] MEDS: carvediloL 3.125 MG TAB PO SCH ×2 (12:17→22:42)
--- NOTE | 2019-01-30 13:55 | Progress Note ---
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 He was found to have EKG changes and increasing Troponins. He was taken urgently to [facility] and found to Two-vessel CAD with occluded mild Left anterior descending coronary artery and a 70% mid segment left circumflex stenosis and PCI of the LAD with a Resolute Drug-Eluting stent and aspirartion thrombectomy of the LAD were done * nl wbc, troponin 0.484 -->4.110, LDL 156, BG 226 * EKG reported nonspecific ST changes but not STEMI * pCXR: Probable bibasilar atelectasis * TTE conclusions (post stent): The left ventricular chamber size is mildly dilated, global LV systolic funciton is mildly decreased, estimated EF 40-45%, The mid anteroseptal, apical anterior wall segments are akinetic, consistent with prior LAD territory infarct, mild concentric LVH, trace MR, mild AR, mild TR NSTEMI with CAD s/p PCI with FRANNY to mid LAD: treated with iv heparin, dual plt and statin Acute Systolic instead of diastolic heart failure, poa: diuretics if needed, ECHO reviewed Cardiogenic shock still on Dopamine 5 mcg: trying to wean off Uncontrolled type 2 DM with hyperglycemia: increase insulin therapy Dyslipidemia: treat with statin full code DVT ppx add sq heparin Disposition: continue icu care, still on dopamine IV drip, trying to wean off dopamine History Interval history: Patient was seen and examined. Follow-up on current diagnosis of NSTEMI. No overnight events reported to me. Patient denies any chest pain, shortness breath, nausea/vomiting or severe headaches. Imaging, nursing note, chart, labs and old chart reviewed. Discussed with patient. Hospitalist Physical - Physical exam Narrative exam: Gen: WDWN, NAD, Awake, Alert, Orientated HEENT: NCAT, EOMI, PERRL, OP Clear Neck: supple, no adenopathy, no thyromegaly, no JVD CVS/Heart: RRR, normal S1S2, pulses present bilaterally Chest/Lungs: CTA B, Symmetrical chest expansion, good air entry bilaterally GI/Abdomen: soft, NTND, good bowel sounds, no guarding or rebound /Bladder: no suprapubic tenderness, no CVA or paraspinal tenderness Extermity/Skin: no c/c/e, no obvious rash MSK: FROM x 4 Neuro: CN 2-12 grossly intact, no new focal deficits Psych: calm - Constitutional Vitals: Temp Pulse Resp BP Pulse Ox 98 F 75 19 106/59 95 01/30/19 12:00 01/30/19 12:21 01/30/19 12:21 01/30/19 12:21 01/30/19 12:21 General appearance: Present: no acute distress, well-nourished Results - Labs CBC & Chem 7: 01/30/19 04:58 01/30/19 04:58 Labs: Laboratory Last Values WBC 8.2 K/mm3 (4.5-11.0) 01/30/19 04:58 RBC 4.66 M/mm3 (3.65-5.03) 01/30/19 04:58 Hgb 14.5 gm/dl (11.8-15.2) 01/30/19 04:58 Hct 42.8 % (35.5-45.6) 01/30/19 04:58 MCV 92 fl (84-94) 01/30/19 04:58 MCH 31 pg (28-32) 01/30/19 04:58 MCHC 34 % (32-34) 01/30/19 04:58 RDW 12.8 % (13.2-15.2) L 01/30/19 04:58 Plt Count 155 K/mm3 (140-440) 01/30/19 04:58 Lymph % (Auto) 9.2 % (13.4-35.0) L 01/28/19 14:14 Stone % (Auto) 3.4 % (0.0-7.3) 01/28/19 14:14 Eos % (Auto) 0.3 % (0.0-4.3) 01/28/19 14:14 Baso % (Auto) 0.3 % (0.0-1.8) 01/28/19 14:14 Lymph # 0.9 K/mm3 (1.2-5.4) L 01/28/19 14:14 Stone # 0.3 K/mm3 (0.0-0.8) 01/28/19 14:14 Eos # 0.0 K/mm3 (0.0-0.4) 01/28/19 14:14 Baso # 0.0 K/mm3 (0.0-0.1) 01/28/19 14:14 Seg Neutrophils % 86.8 % (40.0-70.0) H 01/28/19 14:14 Seg Neutrophils # 8.9 K/mm3 (1.8-7.7) H 01/28/19 14:14 PT 14.8 Sec. (12.2-14.9) 01/28/19 18:31 INR 1.17 (0.87-1.13) H 01/28/19 18:31 APTT 210.6 Sec. (24.2-36.6) H* 01/28/19 18:31 Activated Clotting Time 296 (74-137) H 01/28/19 15:53 Heparin Anti-Xa Level 0.31 U.I./ml (0.3-0.7) 01/29/19 07:42 Sodium 138 mmol/L (137-145) 01/30/19 04:58 Potassium 4.0 mmol/L (3.6-5.0) 01/30/19 04:58 Chloride 103.9 mmol/L (98-107) 01/30/19 04:58 Carbon Dioxide 20 mmol/L (22-30) L 01/30/19 04:58 Anion Gap 18 mmol/L 01/30/19 04:58 BUN 13 mg/dL (9-20) 01/30/19 04:58 Creatinine 0.8 mg/dL (0.8-1.5) 01/30/19 04:58 Estimated GFR > 60 ml/min 01/30/19 04:58 BUN/Creatinine Ratio 16 % 01/30/19 04:58 Glucose 230 mg/dL (75-100) H 01/30/19 04:58 POC Glucose 245 (70-105) H 01/30/19 11:32 Calcium 8.2 mg/dL (8.4-10.2) L 01/30/19 04:58 Troponin T 4.110 ng/mL (0.00-0.029) H* D 01/28/19 18:31 Triglycerides 155 mg/dL (2-149) H 01/28/19 14:14 Cholesterol 215 mg/dL (50-199) H 01/28/19 14:14 LDL Cholesterol Direct 156 mg/dL (50-130) H 01/28/19 14:14 HDL Cholesterol 48 mg/dL (40-59) 01/28/19 14:14 Cholesterol/HDL Ratio 4.47 % 01/28/19 14:14 Blood Type O POSITIVE 01/28/19 14:29 Antibody Screen Negative 01/28/19 14:29 Active Medications - Current Medications Current Medications: Generic Name Dose Route Start Last Admin Trade Name Freq PRN Reason Stop Dose Admin Acetaminophen/Hydrocodone Bitart 1 each 01/28/19 16:13 01/29/19 07:46 [place] 5/325 PO 1 each Q4H PRN Administration Pain, Moderate (4-6) Aspirin 81 mg 01/29/19 10:00 01/30/19 09:23 Halfprin Ec PO 81 mg QDAY UHSSAIN Administration Atorvastatin Calcium 80 mg 01/28/19 22:00 01/29/19 22:03 Lipitor PO 80 mg QHS HUSSAIN Administration Carvedilol 3.125 mg 01/28/19 22:00 01/30/19 12:17 Coreg PO Not Given BID HUSSAIN Ergocalciferol 50,000 unit 01/31/19 10:00 Vitamin D2 PO Sa HUSSAIN Dopamine HCl/Dextrose 800 mg in 250 mls @ 6.563 mls/hr 01/28/19 21:55 01/30/19 09:57 Intropin Drip 800 Mg/D5w 250 Ml IV 0 mcg/kg/min TITR HUSSAIN 0 mls/hr Titration Protocol 5 MCG/KG/MIN Insulin Human Regular 0 units 01/28/19 22:00 01/30/19 12:18 Humulin R SUB-Q 2 units ACHS HUSSAIN Administration Protocol Ondansetron HCl 4 mg 01/28/19 22:17 01/29/19 04:18 Zofran IV 4 mg Q4H PRN Administration Nausea And Vomiting Ticagrelor 90 mg 01/28/19 22:00 01/30/19 09:23 Brilinta PO 90 mg BID HUSSAIN Administration Tramadol HCl 50 mg 01/28/19 16:13 Ultram PO Q4H PRN Pain, Mild (1-3) Nutrition/Malnutrition Assess - Dietary Evaluation Nutrition/Malnutrition Findings: Nutrition Notes Start: 01/29/19 10:48 Freq: Status: Active Protocol: Document 01/29/19 10:52 CC (Rec: 01/29/19 11:02 CC [id number]) Co-Sign 01/29/19 10:52 LP Nutrition Notes 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 Pt does not speak [place]. Pt daughter translated. Pt appetite has been normal and good, with no unitentional wt loss. Pt ate 100% of his dinner and was eating breakfast. Per pt daughter they were given information from doctor about diet to follow. Brought pt and family Heart Healthy Consistent CHO handout for more straighforward infromation. Diet was changed to consistent CHO/cardiac diet Burn Absent Trauma Absent GI Symptoms Nausea,Vomiting Food Allergy No Current % PO Good (75-100%) Minimum of two criteria No #1 Nutrition Diagnosis No nutrition diagnosis at this time Is patient on ventilator? No Is Patient Ambulatory and/or Out of Bed No REE-([place] [facility]-confined to bed) 3791.033 Calculation Used for Recommendations [place] Additional Notes PRO: 70-84g/day (1.0-1.2g/kg) Fluid: 1ml/kcal Nutrition Intervention Change Diet Order: cardiac/consistent CHO Revisit per MD consult or patient Sign Off request:
[2019-01-30] MEDS: HYDROcodone/ACETAMINOPHEN 5-325 MG TAB PO PRN (22:42)
--- NOTE | 2019-01-30 23:01 | Progress Note ---
Assessment and Plan subacute anterior wall IA s/p aspiration thrombectomy of the mid LAD and PCI of the LAD using drug eluting stents. On DAPT with Brilinta and aspirin. After load agents and beta blockers when patient's blood pressure allows. Patient is off pressors. Diabetes Hyperlipidema ischemic cardiomyopathy - echocardiogram reports a mildly decrease LV systolic function, ejection fraction 40-45%. Start BB and ACEi when patient's blood pressure allows. Subjective Date of service: 01/31/19 Interval history: No acute events. Resting comfortably. No chest pain or SOB. Objective Vital Signs Temp Pulse Pulse Resp BP Pulse Ox 01/30/19 22:42 75 98/68 01/30/19 20:00 80 79 19 104/70 93 01/30/19 19:51 98.7 F 01/30/19 19:50 82 15 105/71 93 01/30/19 19:40 78 16 104/68 96 01/30/19 19:30 78 18 104/68 95 01/30/19 19:20 81 11 L 101/72 96 01/30/19 19:10 85 14 112/77 94 01/30/19 19:00 78 13 112/77 96 01/30/19 18:50 83 18 110/83 96 01/30/19 18:40 72 12 109/78 96 01/30/19 18:30 76 22 125/80 97 01/30/19 18:21 81 16 125/80 97 01/30/19 18:11 80 13 123/71 98 01/30/19 18:01 80 16 123/71 96 01/30/19 17:51 75 21 84/56 95 01/30/19 17:41 74 18 95/65 94 01/30/19 17:30 72 18 95/65 94 01/30/19 17:21 78 17 105/71 96 01/30/19 17:11 71 16 90/63 97 01/30/19 17:00 70 18 90/63 95 01/30/19 16:51 77 20 90/52 95 01/30/19 16:41 70 19 94/60 94 01/30/19 16:30 74 19 94/60 93 01/30/19 16:21 86 16 86/56 97 01/30/19 16:11 79 20 89/60 94 01/30/19 16:00 98.4 F 76 70 14 89/60 94 01/30/19 15:51 76 11 L 92/60 97 01/30/19 15:41 75 16 87/56 95 01/30/19 15:30 76 20 87/56 93 01/30/19 15:21 73 21 96/61 94 01/30/19 15:11 78 21 107/67 94 01/30/19 15:00 85 18 107/67 99 01/30/19 14:51 82 19 104/59 97 01/30/19 14:41 86 23 102/70 97 01/30/19 14:30 76 20 102/70 95 01/30/19 14:21 81 10 L 101/62 96 01/30/19 14:11 87 16 98/66 96 01/30/19 14:00 85 19 107/67 95 01/30/19 13:50 90 11 L 102/69 99 01/30/19 13:41 91 H 21 109/75 95 01/30/19 13:30 87 20 109/75 94 01/30/19 13:21 91 H 21 105/67 94 01/30/19 13:11 90 20 109/72 95 01/30/19 13:00 81 20 109/72 94 01/30/19 12:51 92 H 21 93/68 95 01/30/19 12:41 77 16 93/68 95 01/30/19 12:30 73 17 93/68 94 01/30/19 12:21 75 19 106/59 95 01/30/19 12:11 77 22 106/59 96 01/30/19 12:00 98 F 86 73 16 106/59 94 01/30/19 11:51 78 11 L 96/70 99 01/30/19 11:41 78 15 114/82 96 01/30/19 11:30 98.7 F 82 19 114/82 96 01/30/19 11:21 77 18 107/61 95 01/30/19 11:11 80 11 L 99/67 95 01/30/19 11:00 73 15 99/67 95 01/30/19 10:51 97 H 14 106/70 96 01/30/19 10:41 89 13 107/70 97 01/30/19 10:30 80 13 107/70 98 01/30/19 10:21 84 19 93/61 96 01/30/19 10:11 82 19 94/64 95 01/30/19 10:00 86 21 94/64 95 01/30/19 09:51 99 H 18 90/64 95 01/30/19 09:41 94 H 20 90/64 97 01/30/19 09:30 79 13 90/64 94 01/30/19 09:21 92 H 17 92/63 95 01/30/19 09:11 85 18 87/61 95 01/30/19 09:00 84 16 87/61 95 01/30/19 08:51 81 10 L 85/63 95 01/30/19 08:41 80 24 90/59 94 01/30/19 08:30 68 18 90/59 94 01/30/19 08:21 72 11 L 88/55 94 01/30/19 08:11 66 15 84/55 95 01/30/19 08:00 97.6 F 79 70 18 84/55 94 01/30/19 07:51 75 15 91/58 94 01/30/19 07:41 72 18 102/61 94 01/30/19 07:30 66 14 102/61 97 01/30/19 07:21 86 15 97/49 94 01/30/19 07:11 75 13 92/62 94 01/30/19 07:00 73 16 94/64 93 01/30/19 06:51 90 16 92/62 95 01/30/19 06:41 85 16 101/67 96 01/30/19 06:31 87 12 72/41 95 01/30/19 06:21 65 13 101/67 94 01/30/19 06:11 78 15 94/46 94 01/30/19 06:00 73 21 94/46 97 01/30/19 05:51 63 16 97/49 94 01/30/19 05:41 60 15 89/49 94 01/30/19 05:30 63 14 89/49 95 01/30/19 05:21 56 L 12 101/62 96 01/30/19 05:11 62 14 98/62 93 01/30/19 05:00 68 15 98/62 95 01/30/19 04:51 58 L 10 L 96/54 94 01/30/19 04:41 67 12 104/56 93 01/30/19 04:30 61 16 104/56 95 01/30/19 04:21 64 15 98/59 93 01/30/19 04:11 60 18 103/62 94 01/30/19 04:00 64 15 101/63 93 01/30/19 03:51 66 12 103/62 92 01/30/19 03:41 63 16 116/91 93 01/30/19 03:30 95 H 18 116/91 95 01/30/19 03:21 61 16 88/56 93 01/30/19 03:18 98.9 F 01/30/19 03:11 63 16 107/66 95 01/30/19 03:00 77 21 107/66 95 01/30/19 02:51 77 21 98/58 94 01/30/19 02:41 68 15 98/55 94 01/30/19 02:30 66 17 98/55 94 01/30/19 02:21 64 15 98/49 93 01/30/19 02:11 65 16 98/52 92 01/30/19 02:00 62 17 98/52 94 01/30/19 01:51 65 17 97/52 93 01/30/19 01:41 61 19 106/61 96 01/30/19 01:30 64 16 89/53 95 01/30/19 01:21 71 13 103/49 94 01/30/19 01:11 64 19 106/61 94 01/30/19 01:00 73 13 106/61 96 01/30/19 00:51 69 19 99/61 95 01/30/19 00:41 65 15 94/60 95 01/30/19 00:30 73 17 77/47 95 01/30/19 00:21 70 15 87/53 95 01/30/19 00:11 73 16 86/57 94 01/30/19 00:00 72 13 77/49 95 01/29/19 23:51 84 11 L 86/57 96 01/29/19 23:41 74 9 L 86/56 94 01/29/19 23:30 75 17 86/56 95 01/29/19 23:25 77 14 91/58 95 01/29/19 23:21 72 10 L 91/58 95 01/29/19 23:11 74 14 89/61 94 01/29/19 23:00 74 17 89/61 94 - Physical Examination General: No Apparent Distress HEENT: Positive: PERRL Neck: Positive: trachea midline Neuro: Positive: Grossly Intact - Labs and Meds CBC 01/30/19 Range/Units 04:58 WBC 8.2 (4.5-11.0) K/mm3 RBC 4.66 (3.65-5.03) M/mm3 Hgb 14.5 (11.8-15.2) gm/dl Hct 42.8 (35.5-45.6) % Plt Count 155 (140-440) K/mm3 Comprehensive Metabolic Panel 01/30/19 Range/Units 04:58 Sodium 138 (137-145) mmol/L Potassium 4.0 (3.6-5.0) mmol/L Chloride 103.9 (98-107) mmol/L Carbon Dioxide 20 L (22-30) mmol/L BUN 13 (9-20) mg/dL Creatinine 0.8 (0.8-1.5) mg/dL Glucose 230 H (75-100) mg/dL Calcium 8.2 L (8.4-10.2) mg/dL
[2019-01-31 05:55] LABS: Hematocrit 40.7 % (35.5-45.6); Hemoglobin 13.8 gm/dl (11.8-15.2); Mean Corpuscular HGB Conc 34 % (32-34); Mean Corpuscular Volume 92 fl (84-94); Platelet Count 146 K/mm3 (140-440); Red Blood Count 4.43 M/mm3 (3.65-5.03); Red Cell Distribution Width 13.1 % (13.2-15.2)
[2019-01-31 06:15] LABS: BUN/Creatinine Ratio 23; Blood Urea Nitrogen 16 mg/dL (9-20); Calcium 8.4 mg/dL (8.4-10.2); Hemolysis Index 11
[2019-01-31] MEDS: INSULIN REGULAR, HUMAN 100 UNITS/1 ML SUB-Q SCH ×4 (08:13→22:33)
--- NOTE | 2019-01-31 09:45 | Progress Note ---
Assessment and Plan 63 y/o male with NSTEMI, now hypotensive. 1. Cards has restarted BP meds 2. Await cards evaluation today 3. From a critical care standpoint appears stable and does not need ICU care any further 4. If transferred out today, will sign off, please discontinue consult. Subjective Date of service: 01/31/19 Interval history: Cardiology requested patient be watched in unit overnight. Stable. Has not had to be placed back on dopamine. Objective - Constitutional Vitals: Vital Signs - 12hr 01/30/19 01/30/19 01/30/19 21:50 22:00 22:10 Temperature Pulse Rate 72 66 68 Pulse Rate [ From Monitor] Pulse Rate [ Left Dorsalis Pedis] Respiratory 18 18 19 Rate Blood Pressure 87/52 87/50 87/50 O2 Sat by Pulse 95 96 96 Oximetry 01/30/19 01/30/19 01/30/19 22:20 22:30 22:40 Temperature Pulse Rate 85 69 71 Pulse Rate [ From Monitor] Pulse Rate [ Left Dorsalis Pedis] Respiratory 15 18 12 Rate Blood Pressure 105/79 98/68 98/68 O2 Sat by Pulse 98 96 97 Oximetry 01/30/19 01/30/19 01/30/19 22:42 22:50 23:00 Temperature Pulse Rate 75 68 66 Pulse Rate [ From Monitor] Pulse Rate [ Left Dorsalis Pedis] Respiratory 14 17 Rate Blood Pressure 98/68 96/63 83/53 O2 Sat by Pulse 96 96 Oximetry 01/30/19 01/30/19 01/30/19 23:10 23:20 23:30 Temperature Pulse Rate 67 67 69 Pulse Rate [ From Monitor] Pulse Rate [ Left Dorsalis Pedis] Respiratory 17 15 15 Rate Blood Pressure 83/53 76/48 79/50 O2 Sat by Pulse 96 95 94 Oximetry 01/30/19 01/30/19 01/30/19 23:40 23:44 23:50 Temperature Pulse Rate 72 72 Pulse Rate [ From Monitor] Pulse Rate [ Left Dorsalis Pedis] Respiratory 16 17 Rate Blood Pressure 79/50 83/53 O2 Sat by Pulse 94 96 93 Oximetry 01/30/19 01/31/19 01/31/19 23:52 00:00 00:10 Temperature 98.6 F Pulse Rate 68 68 Pulse Rate [ From Monitor] Pulse Rate [ 76 Left Dorsalis Pedis] Respiratory 15 15 Rate Blood Pressure 77/48 77/48 O2 Sat by Pulse 94 93 Oximetry 01/31/19 01/31/19 01/31/19 00:20 00:30 00:40 Temperature Pulse Rate 72 76 90 Pulse Rate [ From Monitor] Pulse Rate [ Left Dorsalis Pedis] Respiratory 16 16 13 Rate Blood Pressure 74/43 88/55 88/55 O2 Sat by Pulse 93 94 97 Oximetry 01/31/19 01/31/19 01/31/19 00:50 01:00 01:10 Temperature Pulse Rate 81 71 71 Pulse Rate [ From Monitor] Pulse Rate [ Left Dorsalis Pedis] Respiratory 19 15 19 Rate Blood Pressure 77/50 82/54 82/54 O2 Sat by Pulse 96 97 95 Oximetry 01/31/19 01/31/19 01/31/19 01:20 01:30 01:40 Temperature Pulse Rate 68 63 63 Pulse Rate [ From Monitor] Pulse Rate [ Left Dorsalis Pedis] Respiratory 18 16 9 L Rate Blood Pressure 91/64 80/54 91/64 O2 Sat by Pulse 95 96 95 Oximetry 01/31/19 01/31/19 01/31/19 01:50 02:00 02:10 Temperature Pulse Rate 61 59 L 61 Pulse Rate [ From Monitor] Pulse Rate [ Left Dorsalis Pedis] Respiratory 14 14 16 Rate Blood Pressure 83/56 88/56 80/54 O2 Sat by Pulse 94 94 96 Oximetry 01/31/19 01/31/19 01/31/19 02:20 02:30 02:40 Temperature Pulse Rate 65 67 63 Pulse Rate [ From Monitor] Pulse Rate [ Left Dorsalis Pedis] Respiratory 15 14 17 Rate Blood Pressure 80/56 90/61 90/61 O2 Sat by Pulse 94 95 93 Oximetry 01/31/19 01/31/19 01/31/19 02:50 03:00 03:10 Temperature Pulse Rate 61 58 L 62 Pulse Rate [ From Monitor] Pulse Rate [ Left Dorsalis Pedis] Respiratory 15 11 L 14 Rate Blood Pressure 79/53 81/54 89/56 O2 Sat by Pulse 94 96 95 Oximetry 01/31/19 01/31/19 01/31/19 03:20 03:30 03:40 Temperature Pulse Rate 61 56 L 57 L Pulse Rate [ From Monitor] Pulse Rate [ Left Dorsalis Pedis] Respiratory 15 14 18 Rate Blood Pressure 84/55 81/54 81/54 O2 Sat by Pulse 95 97 96 Oximetry 01/31/19 01/31/19 01/31/19 03:50 04:00 04:11 Temperature 98.0 F Pulse Rate 61 59 L 62 Pulse Rate [ From Monitor] Pulse Rate [ 80 Left Dorsalis Pedis] Respiratory 15 13 16 Rate Blood Pressure 87/62 93/63 87/62 O2 Sat by Pulse 96 97 94 Oximetry 01/31/19 01/31/19 01/31/19 04:21 04:30 04:41 Temperature Pulse Rate 62 57 L 59 L Pulse Rate [ From Monitor] Pulse Rate [ Left Dorsalis Pedis] Respiratory 16 15 16 Rate Blood Pressure 84/60 88/57 88/57 O2 Sat by Pulse 96 95 95 Oximetry 01/31/19 01/31/19 01/31/19 04:51 05:00 05:11 Temperature Pulse Rate 61 55 L 70 Pulse Rate [ From Monitor] Pulse Rate [ Left Dorsalis Pedis] Respiratory 14 16 10 L Rate Blood Pressure 86/59 94/57 94/57 O2 Sat by Pulse 96 95 99 Oximetry 01/31/19 01/31/19 01/31/19 05:21 05:30 05:41 Temperature Pulse Rate 66 63 65 Pulse Rate [ From Monitor] Pulse Rate [ Left Dorsalis Pedis] Respiratory 14 11 L 12 Rate Blood Pressure 96/70 93/64 93/64 O2 Sat by Pulse 97 98 97 Oximetry 01/31/19 01/31/19 01/31/19 05:51 06:00 06:11 Temperature Pulse Rate 63 61 68 Pulse Rate [ From Monitor] Pulse Rate [ Left Dorsalis Pedis] Respiratory 17 15 19 Rate Blood Pressure 87/64 89/63 89/63 O2 Sat by Pulse 94 95 94 Oximetry 01/31/19 01/31/19 01/31/19 06:21 06:30 06:41 Temperature Pulse Rate 60 58 L 56 L Pulse Rate [ From Monitor] Pulse Rate [ Left Dorsalis Pedis] Respiratory 11 L 17 16 Rate Blood Pressure 95/60 90/62 90/62 O2 Sat by Pulse 95 95 97 Oximetry 01/31/19 01/31/19 01/31/19 06:51 07:00 07:11 Temperature Pulse Rate 57 L 58 L 80 Pulse Rate [ From Monitor] Pulse Rate [ Left Dorsalis Pedis] Respiratory 12 16 15 Rate Blood Pressure 84/58 95/68 84/58 O2 Sat by Pulse 96 96 96 Oximetry 01/31/19 01/31/19 01/31/19 07:16 07:21 07:30 Temperature Pulse Rate 60 72 Pulse Rate [ From Monitor] Pulse Rate [ Left Dorsalis Pedis] Respiratory 16 15 Rate Blood Pressure 91/61 84/62 O2 Sat by Pulse 94 95 96 Oximetry 01/31/19 01/31/19 01/31/19 07:41 07:51 08:00 Temperature 98.1 F Pulse Rate 61 62 58 L Pulse Rate [ 71 From Monitor] Pulse Rate [ Left Dorsalis Pedis] Respiratory 16 15 16 Rate Blood Pressure 84/62 94/64 87/57 O2 Sat by Pulse 95 96 96 Oximetry 01/31/19 01/31/19 01/31/19 08:11 08:21 08:30 Temperature Pulse Rate 65 62 72 Pulse Rate [ From Monitor] Pulse Rate [ Left Dorsalis Pedis] Respiratory 16 18 11 L Rate Blood Pressure 87/57 88/54 106/73 O2 Sat by Pulse 95 95 95 Oximetry 01/31/19 01/31/19 01/31/19 08:41 08:51 09:00 Temperature Pulse Rate 70 68 65 Pulse Rate [ From Monitor] Pulse Rate [ Left Dorsalis Pedis] Respiratory 18 17 21 Rate Blood Pressure 106/73 100/70 94/60 O2 Sat by Pulse 95 95 96 Oximetry - Labs CBC & Chem 7: 01/31/19 05:23 01/31/19 05:23 Labs: Abnormal lab results 01/30/19 01/30/19 01/30/19 Range/Units 09:28 11:32 16:33 RDW (13.2-15.2) % Sodium (137-145) mmol/L Carbon Dioxide (22-30) mmol/L Creatinine (0.8-1.5) mg/dL Glucose (75-100) mg/dL POC Glucose 244 H 245 H 300 H (70-105) 01/30/19 01/31/19 01/31/19 Range/Units 21:27 05:23 05:23 RDW 13.1 L (13.2-15.2) % Sodium 136 L (137-145) mmol/L Carbon Dioxide 17 L (22-30) mmol/L Creatinine 0.7 L (0.8-1.5) mg/dL Glucose 167 H (75-100) mg/dL POC Glucose 209 H (70-105) 01/31/19 Range/Units 07:55 RDW (13.2-15.2) % Sodium (137-145) mmol/L Carbon Dioxide (22-30) mmol/L Creatinine (0.8-1.5) mg/dL Glucose (75-100) mg/dL POC Glucose 168 H (70-105) Medications & Allergies - Medications Allergies/Adverse Reactions: Allergies No Known Allergies Allergy (Unverified 01/28/19 13:50) Home Medications: Home Medications Medication Instructions Recorded Confirmed Last Taken Type Atorvastatin [Lipitor] 40 mg PO HS 01/28/19 01/28/19 01/27/19 History 40 mg Ergocalciferol [Vitamin D2] 1 tab PO QWEEK 01/28/19 01/28/19 01/24/19 History 50,000 units Lisinopril [Zestril] 5 mg PO DAILY 01/28/19 01/28/19 01/24/19 History 5 mg Magnesium Oxide 500 mg PO DAILY 01/28/19 01/28/19 01/25/19 History 500 mg Metformin HCl [metFORMIN] 1,000 mg PO BID 01/28/19 01/28/19 01/28/19 10:00 History 500 mg Sitagliptin Phosphate [Januvia] 50 mg PO DAILY 01/28/19 01/28/19 01/27/19 History 50 mg Active Medications: Generic Name Dose Route Start Last Admin Trade Name Freq PRN Reason Stop Dose Admin Acetaminophen/Hydrocodone Bitart 1 each 01/28/19 16:13 01/30/19 22:42 [place] 5/325 PO 1 each Q4H PRN Administration Pain, Moderate (4-6) Aspirin 81 mg 01/29/19 10:00 01/30/19 09:23 Halfprin Ec PO 81 mg QDAY HUSSAIN Administration Atorvastatin Calcium 80 mg 01/28/19 22:00 01/30/19 22:41 Lipitor PO 80 mg QHS HUSSAIN Administration Carvedilol 3.125 mg 01/28/19 22:00 01/30/19 22:42 Coreg PO 3.125 mg BID HUSSAIN Administration Ergocalciferol 50,000 unit 01/31/19 10:00 Vitamin D2 PO Sa HUSSAIN Dopamine HCl/Dextrose 800 mg in 250 mls @ 6.563 mls/hr 01/28/19 21:55 1 04/01/18 09:57 Intropin Drip 800 Mg/D5w 250 Ml IV 0 mcg/kg/min TITR HUSSAIN 0 mls/hr Titration Protocol 5 MCG/KG/MIN Insulin Human Regular 0 units 01/28/19 22:00 01/31/19 08:13 Humulin R SUB-Q 1 units ACHS HUSSAIN Administration Protocol Ondansetron HCl 4 mg 01/28/19 22:17 01/29/19 04:18 Zofran IV 4 mg Q4H PRN Administration Nausea And Vomiting Ticagrelor 90 mg 01/28/19 22:00 01/30/19 22:41 Brilinta PO 90 mg BID HUSSAIN Administration Tramadol HCl 50 mg 01/28/19 16:13 Ultram PO Q4H PRN Pain, Mild (1-3)
[2019-01-31] MEDS: TICAGRELOR 90 MG TAB PO SCH ×2 (09:58→22:32)
[2019-01-31] MEDS: ASPIRIN EC 81 MG TAB PO SCH (09:58)
[2019-01-31] MEDS: carvediloL 3.125 MG TAB PO SCH ×2 (09:58→22:32)
[2019-01-31] MEDS ORDERED: ERGOCALCIFEROL (VIT D2) 50,000 UNIT CAP PO SCH (10:00)
--- NOTE | 2019-01-31 16:49 | Progress Note ---
Assessment and Plan - Patient Problems (1) Diabetes 1.5, managed as type 2 Current Visit: Yes Status: Acute Plan to address problem: Patient has excellent control diabetes. 2 units present management. (2) Diabetes 1.5, managed as type 2 Current Visit: Yes Status: Acute (3) Acute diastolic (congestive) heart failure Current Visit: Yes Status: Acute Plan to address problem: Acute dye start heart failure. Well compensated. Echocardiogram shows ejection fraction 40-45%. (4) Chest pain Current Visit: Yes Status: Acute Plan to address problem: Chest pain patient status post left heart cath found to have two-vessel disease. Patient had 2 drug-eluting stents placed. Placed onPAPT plus [place] and aspirin. (5) Non-STEMI (non-ST elevated myocardial infarction) Current Visit: Yes Status: Acute History Interval history: Patient is 63-year-old presented with non-ST elevated MO and cardiogenic shock. Placed on dopamine Patient is currently chest pain-free at present. No shortness of breath no dizziness or exertion. Current hospital course after PCI unremarkable. Patient today has weaned off of pressors dopamine. Currently hemodynamically stable. We'll transfer to telemetry. Hospitalist Physical - Constitutional Vitals: Temp Pulse Resp BP Pulse Ox 97.9 F 73 16 93/64 96 01/31/19 12:00 01/31/19 16:00 01/31/19 16:00 01/31/19 16:00 01/31/19 16:00 General appearance: Present: no acute distress, well-nourished - EENT Eyes: Present: PERRL, EOM intact ENT: hearing intact, clear oral mucosa, dentition normal - Neck Neck: Present: supple, normal ROM - Respiratory Respiratory: bilateral: CTA - Cardiovascular Rhythm: regular Heart Sounds: Present: S1 & S2 - Extremities Extremities: no ischemia, pulses intact, pulses symmetrical, No edema Peripheral Pulses: within normal limits - Abdominal General gastrointestinal: soft, non-tender, non-distended, normal bowel sounds, no hepatomegaly, no splenomegaly, no mass - Integumentary Integumentary: Present: clear, warm, dry. Absent: jaundice, rash, pale - Psychiatric Psychiatric: intact judgment & insight, memory intact - Neurologic Neurologic: CNII-XII intact, focal deficits Results - Labs CBC & Chem 7: 01/31/19 05:23 01/31/19 05:23 Labs: Laboratory Last Values WBC 6.5 K/mm3 (4.5-11.0) 01/31/19 05:23 RBC 4.43 M/mm3 (3.65-5.03) 01/31/19 05:23 Hgb 13.8 gm/dl (11.8-15.2) 01/31/19 05:23 Hct 40.7 % (35.5-45.6) 01/31/19 05:23 MCV 92 fl (84-94) 01/31/19 05:23 MCH 31 pg (28-32) 01/31/19 05:23 MCHC 34 % (32-34) 01/31/19 05:23 RDW 13.1 % (13.2-15.2) L 01/31/19 05:23 Plt Count 146 K/mm3 (140-440) 01/31/19 05:23 Lymph % (Auto) 9.2 % (13.4-35.0) L 01/28/19 14:14 [place] % (Auto) 3.4 % (0.0-7.3) 01/28/19 14:14 Eos % (Auto) 0.3 % (0.0-4.3) 01/28/19 14:14 Baso % (Auto) 0.3 % (0.0-1.8) 01/28/19 14:14 Lymph # 0.9 K/mm3 (1.2-5.4) L 01/28/19 14:14 [place] # 0.3 K/mm3 (0.0-0.8) 01/28/19 14:14 Eos # 0.0 K/mm3 (0.0-0.4) 01/28/19 14:14 Baso # 0.0 K/mm3 (0.0-0.1) 01/28/19 14:14 Seg Neutrophils % 86.8 % (40.0-70.0) H 01/28/19 14:14 Seg Neutrophils # 8.9 K/mm3 (1.8-7.7) H 01/28/19 14:14 PT 14.8 Sec. (12.2-14.9) 01/28/19 18:31 INR 1.17 (0.87-1.13) H 01/28/19 18:31 APTT 210.6 Sec. (24.2-36.6) H* 01/28/19 18:31 Activated Clotting Time 296 (74-137) H 01/28/19 15:53 Heparin Anti-Xa Level 0.31 U.I./ml (0.3-0.7) 01/29/19 07:42 Sodium 136 mmol/L (137-145) L 01/31/19 05:23 Potassium 3.7 mmol/L (3.6-5.0) 01/31/19 05:23 Chloride 103.2 mmol/L (98-107) 01/31/19 05:23 Carbon Dioxide 17 mmol/L (22-30) L 01/31/19 05:23 Anion Gap 20 mmol/L 01/31/19 05:23 BUN 16 mg/dL (9-20) 01/31/19 05:23 Creatinine 0.7 mg/dL (0.8-1.5) L 01/31/19 05:23 Estimated GFR > 60 ml/min 01/31/19 05:23 BUN/Creatinine Ratio 23 % 01/31/19 05:23 Glucose 167 mg/dL (75-100) H 01/31/19 05:23 POC Glucose 166 (70-105) H 01/31/19 16:23 Calcium 8.4 mg/dL (8.4-10.2) 01/31/19 05:23 Magnesium 2.10 mg/dL (1.7-2.3) 01/31/19 05:23 Troponin T 4.110 ng/mL (0.00-0.029) H* D 01/28/19 18:31 Triglycerides 155 mg/dL (2-149) H 01/28/19 14:14 Cholesterol 215 mg/dL (50-199) H 01/28/19 14:14 LDL Cholesterol Direct 156 mg/dL (50-130) H 01/28/19 14:14 HDL Cholesterol 48 mg/dL (40-59) 01/28/19 14:14 Cholesterol/HDL Ratio 4.47 % 01/28/19 14:14 Blood Type O POSITIVE 01/28/19 14:29 Antibody Screen Negative 01/28/19 14:29 Active Medications - Current Medications Current Medications: Generic Name Dose Route Start Last Admin Trade Name Freq PRN Reason Stop Dose Admin Acetaminophen/Hydrocodone Bitart 1 each 01/28/19 16:13 01/30/19 22:42 [place] 5/325 PO 1 each Q4H PRN Administration Pain, Moderate (4-6) Aspirin 81 mg 01/29/19 10:00 01/31/19 09:58 Halfprin Ec PO 81 mg QDAY HUSSAIN Administration Atorvastatin Calcium 80 mg 01/28/19 22:00 01/30/19 22:41 Lipitor PO 80 mg QHS HUSSAIN Administration Carvedilol 3.125 mg 01/28/19 22:00 01/31/19 09:58 Coreg PO 3.125 mg BID HUSSAIN Administration Ergocalciferol 50,000 unit 01/31/19 10:00 01/31/19 09:58 Vitamin D2 PO 50,000 unit Sa HUSSAIN Administration Dopamine HCl/Dextrose 800 mg in 250 mls @ 6.563 mls/hr 01/28/19 21:55 01/30/19 09:57 Intropin Drip 800 Mg/D5w 250 Ml IV 0 mcg/kg/min TITR HUSSAIN 0 mls/hr Titration Protocol 5 MCG/KG/MIN Insulin Human Regular 0 units 01/28/19 22:00 01/31/19 16:19 Humulin R SUB-Q 1 units ACHS HUSSAIN Administration Protocol Ondansetron HCl 4 mg 01/28/19 22:17 01/29/19 04:18 Zofran IV 4 mg Q4H PRN Administration Nausea And Vomiting Ticagrelor 90 mg 01/28/19 22:00 01/31/19 09:58 Brilinta PO 90 mg BID HUSSAIN Administration Tramadol HCl 50 mg 01/28/19 16:13 Ultram PO Q4H PRN Pain, Mild (1-3) Nutrition/Malnutrition Assess - Dietary Evaluation Nutrition/Malnutrition Findings: Nutrition Notes Start: 01/29/19 10:48 Freq: Status: Active Protocol: Document 01/29/19 10:52 CC (Rec: 01/29/19 11:02 CC [id number]) Co-Sign 01/29/19 10:52 LP Nutrition Notes 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 Pt does not speak [place]. Pt daughter translated. Pt appetite has been normal and good, with no unitentional wt loss. Pt ate 100% of his dinner and was eating breakfast. Per pt daughter they were given information from doctor about diet to follow. Brought pt and family Heart Healthy Consistent CHO handout for more straighforward infromation. Diet was changed to consistent CHO/cardiac diet Burn Absent Trauma Absent GI Symptoms Nausea,Vomiting Food Allergy No Current % PO Good (75-100%) Minimum of two criteria No #1 Nutrition Diagnosis No nutrition diagnosis at this time Is patient on ventilator? No Is Patient Ambulatory and/or Out of Bed No REE-([facility]-confined to bed) [phone] Calculation Used for Recommendations [facility] Additional Notes PRO: 70-84g/day (1.0-1.2g/kg) Fluid: 1ml/kcal Nutrition Intervention Change Diet Order: cardiac/consistent CHO Revisit per MD consult or patient Sign Off request:
--- NOTE | 2019-02-01 00:12 | Progress Note ---
Assessment and Plan subacute anterior wall NC s/p aspiration thrombectomy of the mid LAD and PCI of the LAD using drug eluting stents. On DAPT with Brilinta and aspirin. After load agents and beta blockers when patient's blood pressure allows. Patient is off pressors. Diabetes Hyperlipidema ischemic cardiomyopathy - echocardiogram reports a mildly decrease LV systolic function, ejection fraction 40-45%. Start BB and ACEi when patient's blood pressure allows. Subjective Date of service: 02/02/19 Interval history: No acute events. Resting comfortably. No chest pain or SOB. Objective Vital Signs Temp Pulse Pulse Pulse Resp Resp BP 01/31/19 22:32 65 111/72 01/31/19 22:25 98.0 F 66 16 111/72 01/31/19 21:06 01/31/19 17:30 67 13 113/83 01/31/19 17:21 65 20 103/75 01/31/19 17:11 82 12 108/77 01/31/19 17:02 98.2 F 01/31/19 17:00 67 16 108/77 01/31/19 16:51 67 11 L 103/71 01/31/19 16:41 72 15 90/62 01/31/19 16:30 62 20 90/62 01/31/19 16:21 72 12 88/58 01/31/19 16:11 66 19 86/61 01/31/19 16:00 98.2 F 68 73 19 93/64 01/31/19 15:55 69 13 01/31/19 15:41 66 12 91/62 01/31/19 15:30 67 19 91/62 01/31/19 15:21 68 22 96/61 01/31/19 15:11 69 20 89/55 01/31/19 15:00 69 18 89/55 01/31/19 14:51 67 14 96/61 01/31/19 14:41 68 13 90/63 01/31/19 14:30 69 20 90/63 01/31/19 14:21 66 21 97/59 01/31/19 14:11 83 12 97/59 01/31/19 14:00 71 22 97/59 01/31/19 13:51 69 23 102/62 01/31/19 13:41 74 21 103/71 01/31/19 13:30 69 20 103/71 01/31/19 13:21 65 20 95/71 01/31/19 13:11 71 23 114/79 01/31/19 13:00 72 21 114/79 01/31/19 12:51 66 21 105/73 01/31/19 12:41 79 17 85/56 01/31/19 12:30 69 9 L 85/56 01/31/19 12:21 61 14 73/49 01/31/19 12:11 61 17 90/62 01/31/19 12:00 97.9 F 58 L 69 14 90/62 01/31/19 11:51 61 18 91/65 01/31/19 11:41 63 16 93/66 01/31/19 11:30 66 14 93/66 01/31/19 11:21 74 18 91/58 01/31/19 11:11 69 10 L 81/54 01/31/19 11:00 66 13 81/54 01/31/19 10:51 73 15 84/59 01/31/19 10:41 66 15 93/64 01/31/19 10:30 68 13 93/64 01/31/19 10:20 73 20 99/62 01/31/19 10:10 72 13 95/66 01/31/19 10:00 70 20 16 95/66 01/31/19 09:58 73 92/62 01/31/19 09:51 73 10 L 92/62 01/31/19 09:41 77 17 92/56 01/31/19 09:30 85 15 92/56 01/31/19 09:20 76 13 100/66 01/31/19 09:11 74 13 94/60 01/31/19 09:00 65 21 94/60 01/31/19 08:51 68 17 100/70 01/31/19 08:41 70 18 106/73 01/31/19 08:30 72 11 L 106/73 01/31/19 08:21 62 18 88/54 01/31/19 08:11 65 16 87/57 01/31/19 08:00 98.1 F 58 L 71 16 87/57 01/31/19 07:51 62 15 94/64 01/31/19 07:41 61 16 84/62 01/31/19 07:30 72 15 84/62 01/31/19 07:21 60 16 91/61 01/31/19 07:16 01/31/19 07:11 80 15 84/58 01/31/19 07:00 58 L 16 95/68 01/31/19 06:51 57 L 12 84/58 01/31/19 06:41 56 L 16 90/62 01/31/19 06:30 58 L 17 90/62 01/31/19 06:21 60 11 L 95/60 01/31/19 06:11 68 19 89/63 01/31/19 06:00 61 15 89/63 01/31/19 05:51 63 17 87/64 01/31/19 05:41 65 12 93/64 01/31/19 05:30 63 11 L 93/64 01/31/19 05:21 66 14 96/70 01/31/19 05:11 70 10 L 94/57 01/31/19 05:00 55 L 16 94/57 01/31/19 04:51 61 14 86/59 01/31/19 04:41 59 L 16 88/57 01/31/19 04:30 57 L 15 88/57 01/31/19 04:21 62 16 84/60 01/31/19 04:11 62 16 87/62 01/31/19 04:00 98.0 F 59 L 80 13 93/63 01/31/19 03:50 61 15 87/62 01/31/19 03:40 57 L 18 81/54 01/31/19 03:30 56 L 14 81/54 01/31/19 03:20 61 15 84/55 01/31/19 03:10 62 14 89/56 01/31/19 03:00 58 L 11 L 81/54 01/31/19 02:50 61 15 79/53 01/31/19 02:40 63 17 90/61 01/31/19 02:30 67 14 90/61 01/31/19 02:20 65 15 80/56 01/31/19 02:10 61 16 80/54 01/31/19 02:00 59 L 14 88/56 01/31/19 01:50 61 14 83/56 01/31/19 01:40 63 9 L 91/64 01/31/19 01:30 63 16 80/54 01/31/19 01:20 68 18 91/64 01/31/19 01:10 71 19 82/54 01/31/19 01:00 71 15 82/54 01/31/19 00:50 81 19 77/50 01/31/19 00:40 90 13 88/55 01/31/19 00:30 76 16 88/55 01/31/19 00:20 72 16 74/43 Pulse Ox 01/31/19 22:32 01/31/19 22:25 93 01/31/19 21:06 95 01/31/19 17:30 97 01/31/19 17:21 97 01/31/19 17:11 98 01/31/19 17:02 01/31/19 17:00 97 01/31/19 16:51 97 01/31/19 16:41 97 01/31/19 16:30 97 01/31/19 16:21 97 01/31/19 16:11 95 01/31/19 16:00 96 01/31/19 15:55 97 01/31/19 15:41 96 01/31/19 15:30 96 01/31/19 15:21 96 01/31/19 15:11 96 01/31/19 15:00 97 01/31/19 14:51 97 01/31/19 14:41 97 01/31/19 14:30 95 01/31/19 14:21 97 01/31/19 14:11 96 01/31/19 14:00 96 01/31/19 13:51 95 01/31/19 13:41 94 01/31/19 13:30 95 01/31/19 13:21 95 01/31/19 13:11 96 01/31/19 13:00 95 01/31/19 12:51 96 01/31/19 12:41 97 01/31/19 12:30 98 01/31/19 12:21 96 01/31/19 12:11 95 01/31/19 12:00 98 01/31/19 11:51 94 01/31/19 11:41 97 01/31/19 11:30 98 01/31/19 11:21 97 01/31/19 11:11 95 01/31/19 11:00 96 01/31/19 10:51 95 01/31/19 10:41 95 01/31/19 10:30 96 01/31/19 10:20 97 01/31/19 10:10 94 01/31/19 10:00 94 01/31/19 09:58 01/31/19 09:51 96 01/31/19 09:41 95 01/31/19 09:30 94 01/31/19 09:20 94 01/31/19 09:11 97 01/31/19 09:00 96 01/31/19 08:51 95 01/31/19 08:41 95 01/31/19 08:30 95 01/31/19 08:21 95 01/31/19 08:11 95 01/31/19 08:00 96 01/31/19 07:51 96 01/31/19 07:41 95 01/31/19 07:30 96 01/31/19 07:21 95 01/31/19 07:16 94 01/31/19 07:11 96 01/31/19 07:00 96 01/31/19 06:51 96 01/31/19 06:41 97 01/31/19 06:30 95 01/31/19 06:21 95 01/31/19 06:11 94 01/31/19 06:00 95 01/31/19 05:51 94 01/31/19 05:41 97 01/31/19 05:30 98 01/31/19 05:21 97 01/31/19 05:11 99 01/31/19 05:00 95 01/31/19 04:51 96 01/31/19 04:41 95 01/31/19 04:30 95 01/31/19 04:21 96 01/31/19 04:11 94 01/31/19 04:00 97 01/31/19 03:50 96 01/31/19 03:40 96 01/31/19 03:30 97 01/31/19 03:20 95 01/31/19 03:10 95 01/31/19 03:00 96 01/31/19 02:50 94 01/31/19 02:40 93 01/31/19 02:30 95 01/31/19 02:20 94 01/31/19 02:10 96 01/31/19 02:00 94 01/31/19 01:50 94 01/31/19 01:40 95 01/31/19 01:30 96 01/31/19 01:20 95 01/31/19 01:10 95 01/31/19 01:00 97 01/31/19 00:50 96 01/31/19 00:40 97 01/31/19 00:30 94 01/31/19 00:20 93 - Physical Examination General: No Apparent Distress HEENT: Positive: PERRL Neck: Positive: trachea midline Neuro: Positive: Grossly Intact - Labs and Meds CBC 01/31/19 Range/Units 05:23 WBC 6.5 (4.5-11.0) K/mm3 RBC 4.43 (3.65-5.03) M/mm3 Hgb 13.8 (11.8-15.2) gm/dl Hct 40.7 (35.5-45.6) % Plt Count 146 (140-440) K/mm3 Comprehensive Metabolic Panel 01/31/19 Range/Units 05:23 Sodium 136 L (137-145) mmol/L Potassium 3.7 (3.6-5.0) mmol/L Chloride 103.2 (98-107) mmol/L Carbon Dioxide 17 L (22-30) mmol/L BUN 16 (9-20) mg/dL Creatinine 0.7 L (0.8-1.5) mg/dL Glucose 167 H (75-100) mg/dL Calcium 8.4 (8.4-10.2) mg/dL
[2019-02-01] MEDS: INSULIN REGULAR, HUMAN 100 UNITS/1 ML SUB-Q SCH ×4 (07:30→22:22)
[2019-02-01] MEDS: TICAGRELOR 90 MG TAB PO SCH ×2 (09:10→21:22)
[2019-02-01] MEDS: ASPIRIN EC 81 MG TAB PO SCH (09:11)
[2019-02-01] MEDS: carvediloL 3.125 MG TAB PO SCH ×2 (09:11→21:22)
--- NOTE | 2019-02-01 10:00 | Progress Note ---
Assessment and Plan 63 y/o male with NSTEMI, now hypotensive. 1. Will sign off as consult was not discontinued 2. Pulm status stable with no issues 3. Call if questions or concerns. Subjective Date of service: 02/01/19 Interval history: Successful transfer out of unit. Stable pulm mancuso. Objective - Constitutional Vitals: Vital Signs - 12hr 01/31/19 01/31/19 02/01/19 22:25 22:32 04:43 Temperature 98.0 F 98.2 F Pulse Rate 66 65 Respiratory 16 16 Rate Blood Pressure 111/72 111/72 107/74 O2 Sat by Pulse 93 Oximetry 02/01/19 08:48 Temperature Pulse Rate Respiratory Rate Blood Pressure O2 Sat by Pulse 95 Oximetry - Labs CBC & Chem 7: 01/31/19 05:23 01/31/19 05:23 Labs: Abnormal lab results 01/31/19 01/31/19 01/31/19 Range/Units 12:42 16:23 22:37 POC Glucose 196 H 166 H 172 H (70-105) 02/01/19 Range/Units 08:13 POC Glucose 158 H (70-105) Medications & Allergies - Medications Allergies/Adverse Reactions: Allergies No Known Allergies Allergy (Unverified 01/28/19 13:50) Home Medications: Home Medications Medication Instructions Recorded Confirmed Last Taken Type Atorvastatin [Lipitor] 40 mg PO HS 01/28/19 01/28/19 01/27/19 History 40 mg Ergocalciferol [Vitamin D2] 1 tab PO QWEEK 01/28/19 01/28/19 01/24/19 History 50,000 units Lisinopril [Zestril] 5 mg PO DAILY 01/28/19 01/28/19 01/24/19 History 5 mg Magnesium Oxide 500 mg PO DAILY 01/28/19 01/28/19 01/25/19 History 500 mg Metformin HCl [metFORMIN] 1,000 mg PO BID 01/28/19 01/28/19 01/28/19 10:00 History 500 mg Sitagliptin Phosphate [Januvia] 50 mg PO DAILY 01/28/19 01/28/19 01/27/19 History 50 mg Active Medications: Generic Name Dose Route Start Last Admin Trade Name Freq PRN Reason Stop Dose Admin Acetaminophen/Hydrocodone Bitart 1 each 01/28/19 16:13 01/30/19 22:42 [place] 5/325 PO 1 each Q4H PRN Administration Pain, Moderate (4-6) Aspirin 81 mg 01/29/19 10:00 02/01/19 09:11 Halfprin Ec PO 81 mg QDAY HUSSAIN Administration Atorvastatin Calcium 80 mg 01/28/19 22:00 01/31/19 22:31 Lipitor PO 80 mg QHS HUSSAIN Administration Carvedilol 3.125 mg 01/28/19 22:00 02/01/19 09:11 Coreg PO 3.125 mg BID HUSSAIN Administration Ergocalciferol 50,000 unit 01/31/19 10:00 01/31/19 09:58 Vitamin D2 PO 50,000 unit Sa [facility] Administration Dopamine HCl/Dextrose 800 mg in 250 mls @ 6.563 mls/hr 01/28/19 21:55 01/30/19 09:57 Intropin Drip 800 Mg/D5w 250 Ml IV 0 mcg/kg/min TITR HUSSAIN 0 mls/hr Titration Protocol 5 MCG/KG/MIN Insulin Human Regular 0 units 01/28/19 22:00 02/01/19 07:30 Humulin R SUB-Q Not Given ACHS [facility] Protocol Ondansetron HCl 4 mg 01/28/19 22:17 01/29/19 04:18 Zofran IV 4 mg Q4H PRN Administration Nausea And Vomiting Ticagrelor 90 mg 01/28/19 22:00 02/01/19 09:10 Brilinta PO 90 mg BID [facility] Administration Tramadol HCl 50 mg 01/28/19 16:13 Ultram PO Q4H PRN Pain, Mild (1-3)
--- NOTE | 2019-02-01 13:33 | Progress Note ---
Assessment and Plan - Patient Problems (1) Diabetes 1.5, managed as type 2 Current Visit: Yes Status: Acute Plan to address problem: Patient has excellent control diabetes. Not requiring medications just concentrated sweets low-carb diet. (2) Diabetes 1.5, managed as type 2 Current Visit: Yes Status: Acute (3) Acute diastolic (congestive) heart failure Current Visit: Yes Status: Acute Plan to address problem: Acute dye start heart failure. Well compensated. Echocardiogram shows ejection fraction 40-45%. (4) Chest pain Current Visit: Yes Status: Acute Plan to address problem: Patient status post thrombectomy of LAD and PCI of LAD currently on DAPT T Berlinta and aspirin. 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 Did speak with cardiology. 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 Patient most likely hospital 1-2 more days. (5) Non-STEMI (non-ST elevated myocardial infarction) Current Visit: Yes Status: Acute Plan to address problem: Patient with anterior wall TN. Antiplatelets antilipid therapy beta ranjith when able to tolerate. History Interval history: Patient is without symptoms no chest pain no shortness of breath. Blood pressure remains somewhat low but better than yesterday. No new events reported to me overnight. Hospitalist Physical - Constitutional Vitals: Temp Pulse Resp BP Pulse Ox 98.7 F 74 18 121/84 95 02/01/19 11:44 02/01/19 11:44 02/01/19 11:44 02/01/19 11:44 02/01/19 11:44 General appearance: Present: no acute distress, well-nourished - EENT Eyes: Present: PERRL, EOM intact ENT: hearing intact, clear oral mucosa, dentition normal - Respiratory Respiratory effort: normal Respiratory: bilateral: CTA - Cardiovascular Rhythm: regular - Extremities Extremities: no ischemia, pulses intact, pulses symmetrical, No edema Peripheral Pulses: within normal limits - Abdominal General gastrointestinal: soft, non-tender, non-distended, normal bowel sounds, no hepatomegaly, no splenomegaly - Integumentary Integumentary: Present: clear, warm, dry - Psychiatric Psychiatric: appropriate mood/affect, intact judgment & insight - Neurologic Neurologic: CNII-XII intact, focal deficits, moves all extremities Results - Labs CBC & Chem 7: 01/31/19 05:23 01/31/19 05:23 Labs: Laboratory Last Values WBC 6.5 K/mm3 (4.5-11.0) 01/31/19 05:23 RBC 4.43 M/mm3 (3.65-5.03) 01/31/19 05:23 Hgb 13.8 gm/dl (11.8-15.2) 01/31/19 05:23 Hct 40.7 % (35.5-45.6) 01/31/19 05:23 MCV 92 fl (84-94) 01/31/19 05:23 MCH 31 pg (28-32) 01/31/19 05: MCHC 34 % (32-34) 01/31/19 05:23 RDW 13.1 % (13.2-15.2) L 01/31/19 05:23 Plt Count 146 K/mm3 (140-440) 01/31/19 05:23 Lymph % (Auto) 9.2 % (13.4-35.0) L 01/28/19 14:14 [place] % (Auto) 3.4 % (0.0-7.3) 01/28/19 14:14 Eos % (Auto) 0.3 % (0.0-4.3) 01/28/19 14:14 Baso % (Auto) 0.3 % (0.0-1.8) 01/28/19 14:14 Lymph # 0.9 K/mm3 (1.2-5.4) L 01/28/19 14:14 [place] # 0.3 K/mm3 (0.0-0.8) 01/28/19 14:14 Eos # 0.0 K/mm3 (0.0-0.4) 01/28/19 14:14 Baso # 0.0 K/mm3 (0.0-0.1) 01/28/19 14:14 Seg Neutrophils % 86.8 % (40.0-70.0) H 01/28/19 14:14 Seg Neutrophils # 8.9 K/mm3 (1.8-7.7) H 01/28/19 14:14 PT 14.8 Sec. (12.2-14.9) 01/28/19 18:31 INR 1.17 (0.87-1.13) H 01/28/19 18:31 APTT 210.6 Sec. (24.2-36.6) H* 01/28/19 18:31 Activated Clotting Time 296 (74-137) H 01/28/19 15:53 Heparin Anti-Xa Level 0.31 U.I./ml (0.3-0.7) 01/29/19 07:42 Sodium 136 mmol/L (137-145) L 01/31/19 05:23 Potassium 3.7 mmol/L (3.6-5.0) 01/31/19 05:23 Chloride 103.2 mmol/L (98-107) 01/31/19 05:23 Carbon Dioxide 17 mmol/L (22-30) L 01/31/19 05:23 Anion Gap 20 mmol/L 01/31/19 05:23 BUN 16 mg/dL (9-20) 01/31/19 05:23 Creatinine 0.7 mg/dL (0.8-1.5) L 01/31/19 05:23 Estimated GFR > 60 ml/min 01/31/19 05:23 BUN/Creatinine Ratio 23 % 01/31/19 05:23 Glucose 167 mg/dL (75-100) H 01/31/19 05:23 POC Glucose 209 (70-105) H 02/01/19 11:53 Calcium 8.4 mg/dL (8.4-10.2) 01/31/19 05:23 Magnesium 2.10 mg/dL (1.7-2.3) 01/31/19 05:23 Troponin T 4.110 ng/mL (0.00-0.029) H* D 01/28/19 18:31 Triglycerides 155 mg/dL (2-149) H 01/28/19 14:14 Cholesterol 215 mg/dL (50-199) H 01/28/19 14:14 LDL Cholesterol Direct 156 mg/dL (50-130) H 01/28/19 14:14 HDL Cholesterol 48 mg/dL (40-59) 01/28/19 14:14 Cholesterol/HDL Ratio 4.47 % 01/28/19 14:14 Blood Type O POSITIVE 01/28/19 14:29 Antibody Screen Negative 01/28/19 14:29 Active Medications - Current Medications Current Medications: Generic Name Dose Route Start Last Admin Trade Name Freq PRN Reason Stop Dose Admin Acetaminophen/Hydrocodone Bitart 1 each 01/28/19 16:13 01/30/19 22:42 [place] 5/325 PO 1 each Q4H PRN Administration Pain, Moderate (4-6) Aspirin 81 mg 01/29/19 10:00 02/01/19 09:11 Halfprin Ec PO 81 mg QDAY HUSSAIN Administration Atorvastatin Calcium 80 mg 01/28/19 22:00 01/31/19 22:31 Lipitor PO 80 mg QHS HUSSAIN Administration Carvedilol 3.125 mg 01/28/19 22:00 02/01/19 09:11 Coreg PO 3.125 mg BID HUSSAIN Administration Ergocalciferol 50,000 unit 01/31/19 10:00 01/31/19 09:58 Vitamin D2 PO 50,000 unit Sa HUSSAIN Administration Dopamine HCl/Dextrose 800 mg in 250 mls @ 6.563 mls/hr 01/28/19 21:55 01/30/19 09:57 Intropin Drip 800 Mg/D5w 250 Ml IV 0 mcg/kg/min TITR HUSSAIN 0 mls/hr Titration Protocol 5 MCG/KG/MIN Insulin Human Regular 0 units 01/28/19 22:00 02/01/19 07:30 Humulin R SUB-Q Not Given ACHS [facility] Protocol Ondansetron HCl 4 mg 01/28/19 22:17 01/29/19 04:18 Zofran IV 4 mg Q4H PRN Administration Nausea And Vomiting Ticagrelor 90 mg 01/28/19 22:00 02/01/19 09:10 Brilinta PO 90 mg BID HUSSAIN Administration Tramadol HCl 50 mg 01/28/19 16:13 Ultram PO Q4H PRN Pain, Mild (1-3) Nutrition/Malnutrition Assess - Dietary Evaluation Nutrition/Malnutrition Findings: Nutrition Notes Start: 01/29/19 10:48 Freq: Status: Active Protocol: Document 01/29/19 10:52 CC (Rec: 01/29/19 11:02 CC [id number]) Co-Sign 01/29/19 10:52 LP Nutrition Notes 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 Pt does not speak [place]. Pt daughter translated. Pt appetite has been normal and good, with no unitentional wt loss. Pt ate 100% of his dinner and was eating breakfast. Per pt daughter they were given information from doctor about diet to follow. Brought pt and family Heart Healthy Consistent CHO handout for more straighforward infromation. Diet was changed to consistent CHO/cardiac diet Burn Absent Trauma Absent GI Symptoms Nausea,Vomiting Food Allergy No Current % PO Good (75-100%) Minimum of two criteria No #1 Nutrition Diagnosis No nutrition diagnosis at this time Is patient on ventilator? No Is Patient Ambulatory and/or Out of Bed No REE-([facility]-confined to bed) 6534.466 Calculation Used for Recommendations [facility] Additional Notes PRO: 70-84g/day (1.0-1.2g/kg) Fluid: 1ml/kcal Nutrition Intervention Change Diet Order: cardiac/consistent CHO Revisit per MD consult or patient Sign Off request:
[2019-02-02] MEDS: INSULIN REGULAR, HUMAN 100 UNITS/1 ML SUB-Q SCH ×3 (08:00→17:57)
--- NOTE | 2019-02-02 10:03 | Progress Note ---
<AISHA LOPEZ - Last Filed: 02/02/19 10:00> Assessment and Plan Acute anterior wall ID s/p aspiration thrombectomy of the mid LAD and PCI of the LAD using drug eluting stents. On DAPT with Brilinta and aspirin. Diabetes Hyperlipidema Echocardiogram reports a mildly decrease LV systolic function, ejection fraction 40-45%. Continue medical therapy for coronary artery disease with dual antiplatelet therapy with Brilinta and aspirin without interruption. Stable cardiac mancuso for discharge home today. Follow up with [facility] within 3-5 days. Subjective Date of service: 02/02/19 Interval history: Patient denies chest pain and shortness of breath. Objective Vital Signs Temp Pulse Resp BP Pulse Ox 02/02/19 05:30 98.0 F 69 18 109/65 97 02/01/19 22:23 97.9 F 67 18 112/71 93 02/01/19 21:22 72 124/80 02/01/19 17:09 97.9 F 67 18 118/85 96 02/01/19 11:44 98.7 F 74 18 121/84 95 - Physical Examination General: No Apparent Distress HEENT: Positive: PERRL Neck: Positive: trachea midline Cardiac: Positive: Reg Rate and Rhythm Lungs: Positive: Normal Breath Sounds Neuro: Positive: Grossly Intact <SUMAN ROLON - Last Filed: 02/02/19 13:19> Assessment and Plan I've seen and evaluated the patient and agree with the assessment and plan. Patient is presenting with subacute anterior wall myocardial infarction status post aspiration thrombectomy of the mid LAD and PCI of the mid LAD. Continue medical therapy with aspirin and Brilinta. Continue medical therapy with statin. We will add beta ranjith and KAMILAH inhibitor as patient's blood pressure allows as an outpatient. Objective Vital Signs Temp Pulse Resp BP Pulse Ox 02/02/19 11:32 97.7 F 68 18 107/66 94 02/02/19 10:11 108/70 02/02/19 10:10 76 108/70 02/02/19 05:30 98.0 F 69 18 109/65 97 02/01/19 22:23 97.9 F 67 18 112/71 93 02/01/19 21:22 72 124/80 02/01/19 17:09 97.9 F 67 18 118/85 96
[2019-02-02] MEDS: ASPIRIN EC 81 MG TAB PO SCH (10:09)
[2019-02-02] MEDS: TICAGRELOR 90 MG TAB PO SCH (10:09)
[2019-02-02] MEDS: carvediloL 3.125 MG TAB PO SCH (10:10)
--- NOTE | 2019-02-02 17:26 | Discharge Summary ---
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 Heart catheterization with PCI of LAD drug-eluting stent placed. Hospital course: Patient originally presented with chest pain and abnormal stress test found to have heart disease and LAD. Had left heart catheterization which showed a lesion in LAD had PCI completed. Patient was placed on DAPT bRILINTTA aspirin for withdrawal antiplatelet therapy. To be continued. Patient stable for discharge to [facility] 3-5 days. Patient hospital course was complicated by hypotension after stent was placed. This improved in 2 days. Stable for discharge. Disposition: TO HOME OR SELFCARE - Discharge Diagnoses (1) Diabetes 1.5, managed as type 2 Status: Acute Comment: Patient continues to have optimal control of diabetes we'll continue patient's by mouth medications from home. (2) Diabetes 1.5, managed as type 2 Status: Acute (3) Acute diastolic (congestive) heart failure Status: Acute Comment: Well compensated no evidence of diastolic heart failure on this exam. (4) Chest pain Status: Acute (5) Non-STEMI (non-ST elevated myocardial infarction) Status: Acute Comment: Non-STEMI patient was placed on beta ranjith with blood pressure will allow. For now dual antiplatelet therapy antilipid therapy. Core Measure Documentation - Palliative Care Palliative Care/ Comfort Measures: Not Applicable - Core Measures Any of the following diagnoses?: none Exam - Constitutional Vitals: Temp Pulse Resp BP Pulse Ox 97.7 F 68 18 107/66 94 02/02/19 11:32 02/02/19 11:32 02/02/19 11:32 02/02/19 11:32 02/02/19 11:32 General appearance: Present: no acute distress, well-nourished - EENT Eyes: Present: PERRL ENT: hearing intact, clear oral mucosa - Neck Neck: Present: supple, normal ROM - Respiratory Respiratory effort: normal Respiratory: bilateral: CTA - Cardiovascular Heart Sounds: Present: S1 & S2. Absent: rub, click - Extremities Extremities: pulses symmetrical, No edema Peripheral Pulses: within normal limits - Abdominal General gastrointestinal: Present: soft, non-tender, non-distended, normal bowel sounds Male genitourinary: Present: normal - Integumentary Integumentary: Present: clear, warm, dry - Musculoskeletal Musculoskeletal: gait normal, strength equal bilaterally - Psychiatric Psychiatric: appropriate mood/affect, intact judgment & insight - Neurologic Neurologic: CNII-XII intact, moves all extremities Plan Activity: no restrictions, no driving until cleared by PCP Weight Bearing Status: Full Weight Bearing Diet: low cholesterol, low salt Special Instructions: record daily BP diary, record blood sugar diary, home health RN Follow up with: SUMAN ROLON MD [Staff Physician] - 7 Days PRIMARY CAREMD [Primary Care Provider] - 3-5 Days Prescriptions: Ticagrelor [Brilinta] 90 mg PO BID #30 tablet carvediloL [Coreg] 3.125 mg PO BID #60 tablet Aspirin EC [Halfprin EC] 81 mg PO QDAY #30 tablet Sitagliptin Phosphate [Januvia] 50 mg PO DAILY #30 AtorvaSTATin [Lipitor] 80 mg PO QHS #30 tablet Metformin HCl [metFORMIN] 1,000 mg PO BID #60 traMADoL [Ultram 50 MG tab] 50 mg PO Q4H PRN #30 tablet PRN Reason: Pain, Mild (1-3)
[2019-02-02 17:55] VITALS: BP 128/82
[2019-02-02] MEDS ORDERED: PNEUMOCOCCAL 23 Valent 0.5 ML VIAL IM ONE (17:55)
== END 2019-02-02 20:35 | disposition home or self-care (01) | DRG 246 ==
LOC: ED 13:37 → CC1 14:45 → 3A 01-31 17:48
PROVIDERS: ADMIT Internal Medicine; ATTEND Internal Medicine
PROC: 027034Z Dilation of Coronary Artery, One Artery with Drug-eluting Intraluminal Device, Percutaneous Approach (ICD-10-PCS; principal; 2019-01-28)
PROC: 02C03ZZ Extirpation of Matter from Coronary Artery, One Artery, Percutaneous Approach (ICD-10-PCS; 2019-01-28)
PROC: 4A023N7 Measurement of Cardiac Sampling and Pressure, Left Heart, Percutaneous Approach (ICD-10-PCS; 2019-01-28)
PROC: B2111ZZ Fluoroscopy of Multiple Coronary Arteries using Low Osmolar Contrast (ICD-10-PCS; 2019-01-28)
PROC: B2151ZZ Fluoroscopy of Left Heart using Low Osmolar Contrast (ICD-10-PCS; 2019-01-28)
DX: I21.09 ST elevation (STEMI) myocardial infarction involving other coronary artery of anterior wall (principal); I50.31 Acute diastolic (congestive) heart failure; I25.110 Atherosclerotic heart disease of native coronary artery with unstable angina pectoris; E78.00 Pure hypercholesterolemia, unspecified; E11.65 Type 2 diabetes mellitus with hyperglycemia; E78.5 Hyperlipidemia, unspecified; I25.5 Ischemic cardiomyopathy; I11.0 Hypertensive heart disease with heart failure; Z82.49 Family history of ischemic heart disease and other diseases of the circulatory system; Z83.3 Family history of diabetes mellitus; Z79.899 Other long term (current) drug therapy; Z79.84 Long term (current) use of oral hypoglycemic drugs
CPT/HCPCS: 36415; 71045; 80048; 80061; 82962; 83735; 84484; 85014; 85018; 85025; 85027; 85049; 85347; 85520; 85610; 85730; 86850; 86900; 86901; 90732; 92941; 93005; 93010; 93306; 93458; 94760; 96365; 96368; G0378; A9270-GY; C1725; C1757; C1769; C1874; C1887; C1894; C9606; J0153; J1265; J1644; J1815; J2250; J2405; J3010; J3246; J7030; Q9967

== ENCOUNTER 2019-02-03 02:19 | Observation (INO) | payer MEDICARE ==
[2019-02-03] MEDS ORDERED: NITROGLYCERIN 2% OINT 1 GM TP ONE (02:25)
--- NOTE | 2019-02-03 02:32 | Emergency Department Report ---
ED Chest Pain HPI - General Stated Complaint: CHEST PAIN Time Seen by Provider: 02/03/19 02:25 Source: patient, family, EMS, old records reviewed Mode of arrival: Stretcher Limitations: No Limitations - History of Present Illness Initial Comments: Mr. Valverde is a 63-year-old male with history of diabetes mellitus, dyslipidemia, hypertension and recent WI who was discharged just 5 hours prior to arrival today. He was taken urgently to the cath on January 28 for acute coronary syndrome. He has stent deployed to the LAD. The treating administrative operations coordinator was Dr. Giles. He was recently discharged this evening at 9 PM. Today he returns per EMS for burning sensation in his chest radiating to the back 8 out of 10 in severity. He explained that he has had similar pain while admitted to the hospital. However he did receive a medication which would relieve the pain. Upon discharge this evening he had only mild discomfort. The discomfort worsened. He has nausea. He has sweats. PCP Dr. Chi French MD Complaint: chest pain -: Gradual, This evening Onset: during rest Pain Location: substernal Pain Radiation: back Severity: moderate Severity scale (0 -10): 8 Quality: other (burning) Consistency: constant Improves With: nitroglycerin, other (aspirin) Worsens With: nothing re: nausea, dyspnea, other (sweats) - Related Data Home Medications Medication Instructions Recorded Confirmed Last Taken Ergocalciferol [Vitamin D2] 1 tab PO QWEEK 01/28/19 01/28/19 01/24/19 50,000 units Previous Rx's Medication Instructions Recorded Last Taken Type Aspirin EC [Halfprin EC] 81 mg PO QDAY #30 tablet 02/02/19 Unknown Rx AtorvaSTATin [Lipitor] 80 mg PO QHS #30 tablet 02/02/19 Unknown Rx Metformin HCl [metFORMIN] 1,000 mg PO BID #60 02/02/19 Unknown Rx Sitagliptin Phosphate [Januvia] 50 mg PO DAILY #30 02/02/19 Unknown Rx Ticagrelor [Brilinta] 90 mg PO BID #30 tablet 02/02/19 Unknown Rx carvediloL [Coreg] 3.125 mg PO BID #60 tablet 02/02/19 Unknown Rx traMADoL [Ultram 50 MG tab] 50 mg PO Q4H PRN #30 tablet 02/02/19 Unknown Rx Allergies Allergy/AdvReac Type Severity Reaction Status Date / Time No Known Allergies Allergy Unverified 01/28/19 13:50 Heart Score - HEART Score History: Moderately suspicious EKG: Non-specific Age: > 65 Risk factors: 1-2 risk factors Troponin: < normal limit HEART Score: 5 ED Review of Systems ROS: Stated complaint: CHEST PAIN Other details as noted in HPI Comment: All other systems reviewed and negative Constitutional: denies: fever, malaise Respiratory: shortness of breath. denies: cough Cardiovascular: chest pain Gastrointestinal: nausea ED Past Medical Hx - Past Medical History Previous Medical History?: Yes Hx Hypertension: Yes Hx Diabetes: Yes Hx GERD: Yes Hx HIV: No Additional medical history: hyperlipidemia - Surgical History Past Surgical History?: Yes Additional Surgical History: hernia repair - Social History Smoking Status: Former Smoker Other Social History: Works in [employer] - Medications Home Medications: Home Medications Medication Instructions Recorded Confirmed Last Taken Type Ergocalciferol [Vitamin D2] 1 tab PO QWEEK 01/28/19 01/28/19 01/24/19 History 50,000 units Aspirin EC [Halfprin EC] 81 mg PO QDAY #30 tablet 02/02/19 Unknown Rx AtorvaSTATin [Lipitor] 80 mg PO QHS #30 tablet 02/02/19 Unknown Rx Metformin HCl [metFORMIN] 1,000 mg PO BID #60 02/02/19 Unknown Rx Sitagliptin Phosphate [Januvia] 50 mg PO DAILY #30 02/02/19 Unknown Rx Ticagrelor [Brilinta] 90 mg PO BID #30 tablet 02/02/19 Unknown Rx carvediloL [Coreg] 3.125 mg PO BID #60 tablet 02/02/19 Unknown Rx traMADoL [Ultram 50 MG tab] 50 mg PO Q4H PRN #30 tablet 02/02/19 Unknown Rx ED Physical Exam - General General appearance: alert, in no apparent distress, other (calm appears comfortable bilateral equal radial pulses) - Head Head exam: Present: atraumatic, normocephalic - Eye Eye exam: Present: normal appearance - ENT ENT exam: Present: mucous membranes moist - Neck Neck exam: Present: normal inspection, full ROM - Respiratory Respiratory exam: Present: normal lung sounds bilaterally. Absent: respiratory distress, wheezes, rales, rhonchi - Cardiovascular Cardiovascular Exam: Present: regular rate, normal rhythm, normal heart sounds. Absent: bradycardia, tachycardia, systolic murmur, diastolic murmur, rubs, gallop - GI/Abdominal GI/Abdominal exam: Present: soft, normal bowel sounds. Absent: distended, tenderness, guarding, rebound - Rectal Rectal exam: Present: deferred - Extremities Exam Extremities exam: Present: normal inspection - Neurological Exam Neurological exam: Present: alert, oriented X3 - Psychiatric Psychiatric exam: Present: normal affect, normal mood - Skin Skin exam: Present: warm, dry, intact, normal color. Absent: rash ED Course Vital Signs 02/03/19 02/03/19 02:30 03:15 Temperature 98.1 F Pulse Rate 67 63 Respiratory 18 17 Rate Blood Pressure 100/64 104/67 Blood Pressure 100/64 [Right] O2 Sat by Pulse 96 95 Oximetry NIELS score - Niels Score Age > 65: (0) No Aspirin use within the Past 7 Days: (0) No 3 or more CAD Risk Factors: (1) Yes 2 or more Angina events in past 24 hrs: (1) Yes Known CAD with more than 50% Stenosis: (0) No Elevated Cardiac Markers: (1) Yes ST Deviation Greater than 0.5mm: (1) Yes NIELS Score: 4 ED Medical Decision Making - Lab Data Result diagrams: 02/03/19 02:40 02/03/19 02:40 - EKG Data When compared to previous EKG there are: changes noted 02/03/19 03:09 EKG obtained 0300 Normal sinus rhythm rate 60 beats a minute normal axis prolonged QT interval for gender ST elevation 2 mm in V2 [address] morphology has changed since January 28 - Radiology Data Radiology results: report reviewed CXR: NAP - Medical Decision Making Mr. Valverde presents with persistent pain at rest, EKG is changed from previous. D/W Dr. Shah who determined acute WI, troponin elevated. Will take patient emergently to cardiac catheterization technician Critical Care Time: Yes Critical care time in (mins) excluding proc time.: 40 Critical care attestation.: If time is entered above; I have spent that time in minutes in the direct care of this critically ill patient, excluding procedure time. 40 minutes of critical care time excluding procedures were used in the care of the patient. Patient required multiple assessments and interventions. I reviewed the electronic medical record. I spoke with consultants involved in the care of the patient. I came to the bedside immediately upon patient's arrival. I discussed case with paramedics prior to arrival. I examine the EKG that was transmitted. ED Disposition Clinical Impression: Acute myocardial infarction Disposition: DC-09 OP ADMIT IP TO THIS HOSP Is pt being admited?: Yes Does the pt Need Aspirin: No Condition: Stable
[2019-02-03 03:05] LABS: Basophils % (Auto) 0.6 % (0.0-1.8); Eosinophils # (Auto) 0.4 K/mm3 (0.0-0.4); Eosinophils % (Auto) 4.8 % (0.0-4.3); Hematocrit 39.8 % (35.5-45.6); Hemoglobin 13.5 gm/dl (11.8-15.2); Lymphocytes # (Auto) 1.4 K/mm3 (1.2-5.4); Lymphocytes % (Auto) 16.5 % (13.4-35.0); Mean Corpuscular HGB Conc 34 % (32-34); Mean Corpuscular Volume 92 fl (84-94); Monocytes # (Auto) 0.5 K/mm3 (0.0-0.8); Monocytes % (Auto) 6.2 % (0.0-7.3); Platelet Count 160 K/mm3 (140-440); Red Blood Count 4.33 M/mm3 (3.65-5.03); Red Cell Distribution Width 12.8 % (13.2-15.2)
--- NOTE | 2019-02-03 03:12 | XRay Report ---
CHEST 1 VIEW, 02/03/2019 2:37 AM CLINICAL INFORMATION/INDICATION: Chest pain COMPARISON: Chest radiograph, 01/28/2019 FINDINGS: SUPPORT DEVICES: None. HEART: The cardiac silhouette remains normal in size. LUNGS/PLEURA: The lungs are clear of focal airspace disease or significant pleural effusion. ADDITIONAL FINDINGS: No additional acute findings. IMPRESSION: 1. No evidence of acute cardiopulmonary process. Signer Name: Cora Reno MD Signed: 02/03/2019 3:07 AM Workstation Name: [id number]
[2019-02-03 04:00] LABS: BUN/Creatinine Ratio 19; Blood Urea Nitrogen 15 mg/dL (9-20); Hemolysis Index 6
[2019-02-03 05:10] LABS: Calcium 8.5 mg/dL (8.4-10.2)
[2019-02-03] MEDS ORDERED: HEPARIN/NS 5000 UNIT/500ML 1,000 ML IR ONE (05:20)
[2019-02-03] MEDS ORDERED: VERAPAMIL 5 MG/2 ML INJ ONE (05:20)
[2019-02-03] MEDS ORDERED: LIDOCAINE (2%) 20 MG/1 ML VIAL 20 ML MDV INFILTRATI ONE (05:21)
[2019-02-03] MEDS ORDERED: NITROGLYCERIN SYRINGE 3 ML ONE (05:21)
[2019-02-03] MEDS ORDERED: MIDAZOLAM 2 MG/2 ML INJ ONE (05:21)
[2019-02-03] MEDS ORDERED: fentaNYL 100 MCG/2 ML INJ ONE (05:22)
[2019-02-03] MEDS ORDERED: EPINEPHrine 1:10,000 1 MG/10 ML SYRINGE ONE (05:23)
[2019-02-03] MEDS ORDERED: ATROPINE 0.1% (1 MG/10 ML) CARDIAC SYRINGE ONE (05:23)
[2019-02-03] MEDS ORDERED: LIDOCAINE PF 100 MG/5 ML (CARDIAC SYRINGE) IV ONE (05:23)
[2019-02-03] MEDS ORDERED: SODIUM CHLORIDE 0.9% 500 ML 500 ML ONE (05:31)
[2019-02-03] MEDS: HEPARIN 10,000 UNITS/10 ML VIAL ONE ×2 (05:39→05:48)
[2019-02-03] MEDS ORDERED: TICAGRELOR 90 MG TAB PO SCH (06:00)
[2019-02-03] MEDS ORDERED: ALUM-MAG HYDROXIDE-SIMETHICONE 200-200-20MG/5ML ORAL LIQD 30 ML ONE (06:01)
[2019-02-03] MEDS ORDERED: TICAGRELOR 90 MG TAB ONE (06:01)
[2019-02-03] MEDS ORDERED: HYDROcodone/ACETAMINOPHEN 5-325 MG TAB PO PRN (06:02)
[2019-02-03] MEDS ORDERED: MORPHINE 2 MG/1 ML INJ IV PRN (06:02)
[2019-02-03] MEDS ORDERED: traMADol 50 MG TAB PO PRN (06:09)
--- NOTE | 2019-02-03 06:13 | Consultation ---
History of Present Illness Consult date: 02/03/19 Requesting physician: MADELEINE GARCIA Consult reason: chest pain History of present illness: Mr. Valverde is a 63-year-old male with history of diabetes mellitus, dyslipidemia, hypertension and recent [place] S/P PCI of the mid lad with FRANNY. Patient was discharged home this this morning. Patient reports he took his medications include the blood thinner. But started having epigastric pain 8- 10 associated with diaphoresis similar to his prior episodes that brought him to the hospital. In the emergency room he had an EKG that showed anterior Q waves with ST elevation but no reciprocal changes. In view of the persistent chest pain similar to his prior episode he was taken to the cardiac [facility]. LAD stent was widely patent. He ever was noted to have a hazy 70-80% circumflex stenosis and underwent PCI with excellent results. Postprocedure patient reports that his burning sensation is much better. Currently stable and being admitted to the hospital. Past History Past Medical History: acute [place], CAD, hypertension Past Surgical History: No surgical history Social history: smoking (remote) Family history: no significant family history Medications and Allergies Allergies Allergy/AdvReac Type Severity Reaction Status Date / Time No Known Allergies Allergy Unverified 01/28/19 13:50 Home Medications Medication Instructions Recorded Confirmed Last Taken Type Ergocalciferol [Vitamin D2] 1 tab PO QWEEK 01/28/19 02/03/19 01/24/19 History 50,000 units Aspirin EC [Halfprin EC] 81 mg PO QDAY #30 tablet 02/02/19 02/03/19 Unknown Rx AtorvaSTATin [Lipitor] 80 mg PO QHS #30 tablet 02/02/19 02/03/19 Unknown Rx Metformin HCl [metFORMIN] 1,000 mg PO BID #60 02/02/19 02/03/19 Unknown Rx Sitagliptin Phosphate [Januvia] 50 mg PO DAILY #30 02/02/19 02/03/19 Unknown Rx Ticagrelor [Brilinta] 90 mg PO BID #30 tablet 02/02/19 02/03/19 Unknown Rx carvediloL [Coreg] 3.125 mg PO BID #60 tablet 02/02/19 02/03/19 Unknown Rx traMADoL [Ultram 50 MG tab] 50 mg PO Q4H PRN #30 tablet 02/02/19 02/03/19 Unknown Rx Active Meds: Active Medications Acetaminophen/Hydrocodone Bitart ([place] 5/325) 1 each PO Q6H PRN PRN Reason: Pain, Moderate (4-6) Aspirin (Baby Aspirin) 81 mg PO QDAY [facility]US[facility] Aspirin (Halfprin Ec) 81 mg PO QDAY [facility] Atorvastatin Calcium (Lipitor) 80 mg PO QHS [facility] Carvedilol (Coreg) 3.125 mg PO BID [facility]US[facility] Ergocalciferol (Vitamin D2) unit PO QWEEK [facility] Sodium Chloride (Nacl 0.9% 1000 Ml) 1,000 mls @ 100 mls/hr IV DIRECT [facility]US[facility] Morphine Sulfate (Morphine) 2 mg IV Q5MIN PRN PRN Reason: Chest Pain unrelieved by NTG Pantoprazole Sodium (Protonix) 40 mg PO DAILY ONE Stop: 02/03/19 06:12 Ticagrelor (Brilinta) 90 mg PO BID [facility]IN Ticagrelor (Brilinta) 90 mg PO BID [facility] Tramadol HCl (Ultram) 50 mg PO Q4H PRN PRN Reason: Pain, Mild (1-3) Review of Systems All systems: negative (as mentioned in H&P) Physical Examination Vital Signs Temp Pulse Resp BP Pulse Ox 98.1 F 71 18 100/64 95 02/03/19 02:30 02/03/19 02:30 02/03/19 02:30 02/03/19 02:30 02/03/19 02:30 General appearance: mild distress HEENT: Positive: Normocephaly Neck: Positive: neck supple Cardiac: Positive: Reg Rate and Rhythm Lungs: Positive: Normal Exam Neuro: Positive: Grossly Intact Abdomen: Positive: Unremarkable Skin: Positive: Clear Extremities: Present: normal Results 02/03/19 02:40 02/03/19 02:40 CBC 02/03/19 Range/Units 02:40 WBC 8.7 (4.5-11.0) K/mm3 RBC 4.33 (3.65-5.03) M/mm3 Hgb 13.5 (11.8-15.2) gm/dl Hct 39.8 (35.5-45.6) % Plt Count 160 (140-440) K/mm3 Lymph # 1.4 (1.2-5.4) K/mm3 [place] # 0.5 (0.0-0.8) K/mm3 Eos # 0.4 (0.0-0.4) K/mm3 Baso # 0.0 (0.0-0.1) K/mm3 Comprehensive Metabolic Panel 02/03/19 Range/Units 02:40 Sodium 135 L (137-145) mmol/L Potassium 3.8 (3.6-5.0) mmol/L Chloride 100.2 (98-107) mmol/L Carbon Dioxide 19 L (22-30) mmol/L BUN 15 (9-20) mg/dL Creatinine 0.8 (0.8-1.5) mg/dL Glucose 213 H (75-100) mg/dL Calcium 8.5 (8.4-10.2) mg/dL EKG interpretations - Telemetry EKG Rhythm: Sinus Rhythm (anteroseptal Q waves mild ST elevation.) Assessment and Plan Impression * Unstable angina status post PCI of the circumflex * Recent anterior ST elevation [place] status post primary PCI of the LAD with drug- eluting stent widely patent stent but cardiac cath today * Diffuse nonobstructive CAD involving the proximal LAD and the diagonal * Hypertension currently blood pressure low * Hyperlipidemia on moderate intensity statins * Ischemic cardiomyopathy by echo done on previous admission EF 45%. Plan * Routine post-PCI care * Dual antiplatelet therapy for 1 year * Changed to high intensity statins * Once blood pressure is stable restart beta blockers and then albina inhibitors if needed * Routine radial artery sheath * Add PPI's * No need to repeat echocardiogram * If stable likely DC home tomorrow
[2019-02-03] MEDS ORDERED: ACETAMINOPHEN 325 MG TAB PO PRN (06:59)
[2019-02-03] MEDS ORDERED: NALOXONE 0.4 MG/1 ML INJ IV PRN (06:59)
[2019-02-03] MEDS ORDERED: ALBUTEROL 2.5 MG/3 ML NEBU IH PRN (06:59)
[2019-02-03] MEDS ORDERED: DEXTROSE 50% IN WATER (25GM) 50 ML SYRINGE IV PRN (06:59)
[2019-02-03] MEDS ORDERED: ONDANSETRON 4 MG/2 ML INJ IV PRN (06:59)
[2019-02-03] MEDS ORDERED: SODIUM CHLORIDE 0.9% 1000 ML 1,000 ML IV SCH (07:00)
--- NOTE | 2019-02-03 07:07 | History and Physical Report ---
History of Present Illness Date of examination: 02/03/19 Date of admission: 02/03/19 Chief complaint: chest pain Past History Past Medical History: acute [place], CAD, hypertension Past Surgical History: No surgical history Social history: smoking (remote) Family history: no significant family history Medications and Allergies Allergies Allergy/AdvReac Type Severity Reaction Status Date / Time No Known Allergies Allergy Unverified 01/28/19 13:50 Home Medications Medication Instructions Recorded Confirmed Last Taken Type Ergocalciferol [Vitamin D2] 1 tab PO QWEEK 01/28/19 02/03/19 01/24/19 History 50,000 units Aspirin EC [Halfprin EC] 81 mg PO QDAY #30 tablet 02/02/19 02/03/19 Unknown Rx AtorvaSTATin [Lipitor] 80 mg PO QHS #30 tablet 02/02/19 02/03/19 Unknown Rx Metformin HCl [metFORMIN] 1,000 mg PO BID #60 02/02/19 02/03/19 Unknown Rx Sitagliptin Phosphate [Januvia] 50 mg PO DAILY #30 02/02/19 02/03/19 Unknown Rx Ticagrelor [Brilinta] 90 mg PO BID #30 tablet 02/02/19 02/03/19 Unknown Rx carvediloL [Coreg] 3.125 mg PO BID #60 tablet 02/02/19 02/03/19 Unknown Rx traMADoL [Ultram 50 MG tab] 50 mg PO Q4H PRN #30 tablet 02/02/19 02/03/19 Unknown Rx Active Meds: Active Medications Acetaminophen (Tylenol) 650 mg PO Q4H PRN PRN Reason: Pain MILD(1-3)/Fever >100.5/VILLALOBOS Acetaminophen/Hydrocodone Bitart ([place] 5/325) 1 each PO Q6H PRN PRN Reason: Pain, Moderate (4-6) Albuterol (Proventil) 2.5 mg IH Q3HRT PRN PRN Reason: Shortness Of Breath Aspirin (Halfprin Ec) 81 mg PO QDAY [facility] Atorvastatin Calcium (Lipitor) 80 mg PO QHS [facility] Carvedilol (Coreg) 3.125 mg PO BID [facility] Dextrose (D50w (25gm) Syringe) 50 ml IV Q30MIN PRN; Protocol PRN Reason: Hypoglycemia Ergocalciferol (Vitamin D2) 50,000 unit PO Sa [facility] Famotidine (Pepcid) 20 mg PO BID [facility] Sodium Chloride (Nacl 0.9% 1000 Ml) 1,000 mls @ 100 mls/hr IV DIRECT [facility] Insulin Human Lispro (Humalog) 0 unit SUB-Q ACHS HUSSAIN; Protocol Miscellaneous Medication (Metformin Hcl [Metformin]) 1,000 mg PO BID [facility] Miscellaneous Medication (Sitagliptin Phosphate [Januvia]) 50 mg PO DAILY [facility] Morphine Sulfate (Morphine) 2 mg IV Q5MIN PRN PRN Reason: Chest Pain unrelieved by NTG Naloxone HCl (Naloxone) 0.1 mg IV Q2MIN PRN PRN Reason: Res Rate </= 8 or 02 SAT < 92% Ondansetron HCl (Zofran) 4 mg IV Q4H PRN PRN Reason: Nausea And Vomiting Pantoprazole Sodium (Protonix) 40 mg PO DAILY [facility] Sodium Chloride (Sodium Chloride Flush Syringe 10 Ml) 10 ml IV BID [facility] Sodium Chloride (Sodium Chloride Flush Syringe 10 Ml) 10 ml IV PRN PRN PRN Reason: LINE FLUSH Sodium Chloride (Sodium Chloride Flush Syringe 10 Ml) 10 ml IV PRN PRN PRN Reason: LINE FLUSH Ticagrelor (Brilinta) 90 mg PO BID [facility] Tramadol HCl (Ultram) 50 mg PO Q4H PRN PRN Reason: Pain, Mild (1-3) Exam - Constitutional Vitals: Temp Pulse Resp BP Pulse Ox 98.1 F 67 16 99/72 96 02/03/19 02:30 02/03/19 05:00 02/03/19 05:00 02/03/19 05:00 02/03/19 05:00 Results - Labs CBC & Chem 7: 02/03/19 02:40 02/03/19 02:40 Labs: Laboratory Last Values WBC 8.7 K/mm3 (4.5-11.0) 02/03/19 02:40 RBC 4.33 M/mm3 (3.65-5.03) 02/03/19 02:40 Hgb 13.5 gm/dl (11.8-15.2) 02/03/19 02:40 Hct 39.8 % (35.5-45.6) 02/03/19 02:40 MCV 92 fl (84-94) 02/03/19 02:40 MCH 31 pg (28-32) 02/03/19 02:40 MCHC 34 % (32-34) 02/03/19 02:40 RDW 12.8 % (13.2-15.2) L 02/03/19 02:40 Plt Count 160 K/mm3 (140-440) 02/03/19 02:40 Lymph % (Auto) 16.5 % (13.4-35.0) 02/03/19 02:40 [place] % (Auto) 6.2 % (0.0-7.3) 02/03/19 02:40 Eos % (Auto) 4.8 % (0.0-4.3) H 02/03/19 02:40 Baso % (Auto) 0.6 % (0.0-1.8) 02/03/19 02:40 Lymph # 1.4 K/mm3 (1.2-5.4) 02/03/19 02:40 [place] # 0.5 K/mm3 (0.0-0.8) 02/03/19 02:40 Eos # 0.4 K/mm3 (0.0-0.4) 02/03/19 02:40 Baso # 0.0 K/mm3 (0.0-0.1) 02/03/19 02:40 Seg Neutrophils % 71.9 % (40.0-70.0) H 02/03/19 02:40 Seg Neutrophils # 6.2 K/mm3 (1.8-7.7) 02/03/19 02:40 Sodium 135 mmol/L (137-145) L 02/03/19 02:40 Potassium 3.8 mmol/L (3.6-5.0) 02/03/19 02:40 Chloride 100.2 mmol/L (98-107) 02/03/19 02:40 Carbon Dioxide 19 mmol/L (22-30) L 02/03/19 02:40 Anion Gap 20 mmol/L 02/03/19 02:40 BUN 15 mg/dL (9-20) 02/03/19 02:40 Creatinine 0.8 mg/dL (0.8-1.5) 02/03/19 02:40 Estimated GFR > 60 ml/min 02/03/19 02:40 BUN/Creatinine Ratio 19 % 02/03/19 02:40 Glucose 213 mg/dL (75-100) H 02/03/19 02:40 Calcium 8.5 mg/dL (8.4-10.2) 02/03/19 02:40 Troponin T 1.160 ng/mL (0.00-0.029) H* 02/03/19 02:40
--- NOTE | 2019-02-03 08:44 | History and Physical Report ---
<PORFIRIO BILLINGS - Last Filed: 02/03/19 10:07> History of Present Illness Date of examination: 02/03/19 Date of admission: 02/03/19 07:03 Chief complaint: Chest Pain History of present illness: Pt is a 63-year-old male with a past medical history of [place], diabetes, hypertension, HLD who presented to [facility] ED with complaints of chest pain since last PM. Pt reports he was recently discharged 02/02/19 after stent was placed on 01/28/2019 . He reports chest pain 10/18 that was accompanied with nausea and radiates to L arm. Pt sts pain was unrelieved by medications he was sent home with. EKG changes and increasing Troponins were noted in the ER and patient was taken to [facility] livestock for PCI, pt reports no chest pain at this time, only d iscomfort from R hand radial artery sheath. Past History Past Medical History: acute [place], CAD, hypertension Past Surgical History: No surgical history Family history: no significant family history Medications and Allergies Allergies Allergy/AdvReac Type Severity Reaction Status Date / Time No Known Allergies Allergy Unverified 01/28/19 13:50 Home Medications Medication Instructions Recorded Confirmed Last Taken Type Ergocalciferol [Vitamin D2] 1 tab PO QWEEK 01/28/19 02/03/19 01/24/19 History 50,000 units Aspirin EC [Halfprin EC] 81 mg PO QDAY #30 tablet 02/02/19 02/03/19 Unknown Rx AtorvaSTATin [Lipitor] 80 mg PO QHS #30 tablet 02/02/19 02/03/19 Unknown Rx Metformin HCl [metFORMIN] 1,000 mg PO BID #60 02/02/19 02/03/19 Unknown Rx Sitagliptin Phosphate [Januvia] 50 mg PO DAILY #30 02/02/19 02/03/19 Unknown Rx Ticagrelor [Brilinta] 90 mg PO BID #30 tablet 02/02/19 02/03/19 Unknown Rx carvediloL [Coreg] 3.125 mg PO BID #60 tablet 02/02/19 02/03/19 Unknown Rx traMADoL [Ultram 50 MG tab] 50 mg PO Q4H PRN #30 tablet 02/02/19 02/03/19 Unknown Rx Active Meds: Active Medications Acetaminophen (Tylenol) 650 mg PO Q4H PRN PRN Reason: Pain MILD(1-3)/Fever >100.5/VILLALOBOS Acetaminophen/Hydrocodone Bitart ([place] 5/325) 1 each PO Q6H PRN PRN Reason: Pain, Moderate (4-6) Last Admin: 02/03/19 08:11 Dose: 1 each Documented by: Albuterol (Proventil) 2.5 mg IH Q3HRT PRN PRN Reason: Shortness Of Breath Aspirin (Halfprin Ec) 81 mg PO QDAY [facility] Atorvastatin Calcium (Lipitor) 80 mg PO QHS [facility] Carvedilol (Coreg) 3.125 mg PO BID [facility] Dextrose (D50w (25gm) Syringe) 50 ml IV Q30MIN PRN; Protocol PRN Reason: Hypoglycemia Ergocalciferol (Vitamin D2) 50,000 unit PO Sa [facility] Sodium Chloride (Nacl 0.9% 1000 Ml) 1,000 mls @ 100 mls/hr IV DIRECT H[facility] Insulin Human Lispro (Humalog) 0 unit SUB-Q ACHS [facility]; Protocol Linagliptin (Tradjenta) 5 mg PO QDDIAB [facility] Metformin HCl (Glucophage) 1,000 mg PO BIDDIAB [facility] Morphine Sulfate (Morphine) 2 mg IV Q5MIN PRN PRN Reason: Chest Pain unrelieved by NTG Naloxone HCl (Naloxone) 0.1 mg IV Q2MIN PRN PRN Reason: Res Rate </= 8 or 02 SAT < 92% Ondansetron HCl (Zofran) 4 mg IV Q4H PRN PRN Reason: Nausea And Vomiting Pantoprazole Sodium (Protonix) 40 mg PO DAILY [facility] Sodium Chloride (Sodium Chloride Flush Syringe 10 Ml) 10 ml IV BID [facility] Sodium Chloride (Sodium Chloride Flush Syringe 10 Ml) 10 ml IV PRN PRN PRN Reason: LINE FLUSH Ticagrelor (Brilinta) 90 mg PO BID [facility] Tramadol HCl (Ultram) 50 mg PO Q4H PRN PRN Reason: Pain, Mild (1-3) Review of Systems Constitutional: no fever, no chills, no weakness, no chronic pain Ears, nose, mouth and throat: no ear pain, no sinus pain, no dental pain, no post-nasal drip Cardiovascular: high blood pressure, no edema, no lightheadedness, no shortness of breath Respiratory: no wheezing, no pain on inspiration, no respiratory infections Gastrointestinal: no nausea, no vomiting, no change in bowel habits Musculoskeletal: no neck stiffness, no leg numbness/tingling, no morning stiffness, no limitation of motion Integumentary: no rash Neurological: no tingling, no seizures, no headaches, no change in speech, no change in mentation Psychiatric: no hallucinations, no confusion, no mood swings Endocrine: high blood sugars, no weight change Hematologic/Lymphatic: no easy bruising, no lymphadenopathy Exam - Constitutional Vitals: Temp Pulse Resp BP Pulse Ox 98.1 F 65 19 113/83 98 02/03/19 02:30 02/03/19 08:30 02/03/19 08:30 02/03/19 08:30 02/03/19 08:30 General appearance: Present: no acute distress - EENT Eyes: Present: PERRL ENT: hearing intact, clear oral mucosa - Neck Neck: Present: supple, normal ROM - Respiratory Respiratory effort: normal Respiratory: bilateral: CTA - Cardiovascular Rhythm: regular - Extremities Extremities: No edema Peripheral Pulses: within normal limits - Abdominal General gastrointestinal: Present: non-tender - Integumentary Integumentary: Present: warm, dry - Musculoskeletal Musculoskeletal: strength equal bilaterally - Psychiatric Psychiatric: appropriate mood/affect, cooperative - Neurologic Neurologic: CNII-XII intact Results - Labs CBC & Chem 7: 02/03/19 02:40 02/03/19 02:40 Labs: Laboratory Last Values WBC 8.7 K/mm3 (4.5-11.0) 02/03/19 02:40 RBC 4.33 M/mm3 (3.65-5.03) 02/03/19 02:40 Hgb 13.5 gm/dl (11.8-15.2) 02/03/19 02:40 Hct 39.8 % (35.5-45.6) 02/03/19 02:40 MCV 92 fl (84-94) 02/03/19 02:40 MCH 31 pg (28-32) 02/03/19 02:40 MCHC 34 % (32-34) 02/03/19 02:40 RDW 12.8 % (13.2-15.2) L 02/03/19 02:40 Plt Count 160 K/mm3 (140-440) 02/03/19 02:40 Lymph % (Auto) 16.5 % (13.4-35.0) 02/03/19 02:40 [place] % (Auto) 6.2 % (0.0-7.3) 02/03/19 02:40 Eos % (Auto) 4.8 % (0.0-4.3) H 02/03/19 02:40 Baso % (Auto) 0.6 % (0.0-1.8) 02/03/19 02:40 Lymph # 1.4 K/mm3 (1.2-5.4) 02/03/19 02:40 [place] # 0.5 K/mm3 (0.0-0.8) 02/03/19 02:40 Eos # 0.4 K/mm3 (0.0-0.4) 02/03/19 02:40 Baso # 0.0 K/mm3 (0.0-0.1) 02/03/19 02:40 Seg Neutrophils % 71.9 % (40.0-70.0) H 02/03/19 02:40 Seg Neutrophils # 6.2 K/mm3 (1.8-7.7) 02/03/19 02:40 Sodium 135 mmol/L (137-145) L 02/03/19 02:40 Potassium 3.8 mmol/L (3.6-5.0) 02/03/19 02:40 Chloride 100.2 mmol/L (98-107) 02/03/19 02:40 Carbon Dioxide 19 mmol/L (22-30) L 02/03/19 02:40 Anion Gap 20 mmol/L 02/03/19 02:40 BUN 15 mg/dL (9-20) 02/03/19 02:40 Creatinine 0.8 mg/dL (0.8-1.5) 02/03/19 02:40 Estimated GFR > 60 ml/min 02/03/19 02:40 BUN/Creatinine Ratio 19 % 02/03/19 02:40 Glucose 213 mg/dL (75-100) H 02/03/19 02:40 Calcium 8.5 mg/dL (8.4-10.2) 02/03/19 02:40 Troponin T 1.160 ng/mL (0.00-0.029) H* 02/03/19 02:40 - Imaging and Cardiology Chest x-ray: image reviewed Assessment and Plan Assessment and plan: CHEST 1 VIEW, 02/03/2019 2:37 AM CLINICAL INFORMATION/INDICATION: Chest pain FINDINGS: SUPPORT DEVICES: None. HEART: The cardiac silhouette remains normal in size. LUNGS/PLEURA: The lungs are clear of focal airspace disease or significant pleural effusion. IMPRESSION: 1. No evidence of acute cardiopulmonary process. Plan Angina - antiplatelet therapy - Routine post-PCI care NSTEMI with CAD s/p PCI - iv heparin, - continue current statin therapy Hypertension - currently blood pressure normal, -continue current treatment Diabetes -insulin therapy continued Elevated Troponin -Cardiology consulted <JAN ALBRIGHT - Last Filed: 02/03/19 17:42> History of Present Illness Date of admission: 02/03/19 07:03 Medications and Allergies Active Meds: Active Medications Acetaminophen (Tylenol) 650 mg PO Q4H PRN PRN Reason: Pain MILD(1-3)/Fever >100.5/VILLALOBOS Acetaminophen/Hydrocodone Bitart ([place] 5/325) 1 each PO Q6H PRN PRN Reason: Pain, Moderate (4-6) Last Admin: 02/03/19 08:11 Dose: 1 each Documented by: Albuterol (Proventil) 2.5 mg IH Q3HRT PRN PRN Reason: Shortness Of Breath Aspirin (Halfprin Ec) 81 mg PO QDAY [facility] Last Admin: 02/03/19 10:21 Dose: 81 mg Documented by: Atorvastatin Calcium (Lipitor) 80 mg PO QHS [facility] Carvedilol (Coreg) 3.125 mg PO BID [facility] Last Admin: 02/03/19 10:20 Dose: 3.125 mg Documented by: Dextrose (D50w (25gm) Syringe) 50 ml IV Q30MIN PRN; Protocol PRN Reason: Hypoglycemia Ergocalciferol (Vitamin D2) 50,000 unit PO Sa [facility] Sodium Chloride (Nacl 0.9% 1000 Ml) 1,000 mls @ 100 mls/hr IV DIRECT [facility] Insulin Human Lispro (Humalog) 0 unit SUB-Q ACHS [facility]; Protocol Last Admin: 02/03/19 13:05 Dose: 4 unit Documented by: Linagliptin (Tradjenta) 5 mg PO QDDIAB [facility] Metformin HCl (Glucophage) 1,000 mg PO BIDDIAB [facility] Morphine Sulfate (Morphine) 2 mg IV Q5MIN PRN PRN Reason: Chest Pain unrelieved by NTG Naloxone HCl (Naloxone) 0.1 mg IV Q2MIN PRN PRN Reason: Res Rate </= 8 or 02 SAT < 92% Ondansetron HCl (Zofran) 4 mg IV Q4H PRN PRN Reason: Nausea And Vomiting Pantoprazole Sodium (Protonix) 40 mg PO DAILY [facility] Last Admin: 02/03/19 10:21 Dose: 40 mg Documented by: Sodium Chloride (Sodium Chloride Flush Syringe 10 Ml) 10 ml IV BID [facility] Sodium Chloride (Sodium Chloride Flush Syringe 10 Ml) 10 ml IV PRN PRN PRN Reason: LINE FLUSH Ticagrelor (Brilinta) 90 mg PO BID [facility] Tramadol HCl (Ultram) 50 mg PO Q4H PRN PRN Reason: Pain, Mild (1-3) Exam - Constitutional Vitals: Temp Pulse Resp BP Pulse Ox 98.3 F 62 18 99/66 95 02/03/19 16:02 02/03/19 16:02 02/03/19 16:02 02/03/19 16:02 02/03/19 16:02 Results - Labs CBC & Chem 7: 02/03/19 02:40 02/03/19 02:40 Labs: Laboratory Last Values WBC 8.7 K/mm3 (4.5-11.0) 02/03/19 02:40 RBC 4.33 M/mm3 (3.65-5.03) 02/03/19 02:40 Hgb 13.5 gm/dl (11.8-15.2) 02/03/19 02:40 Hct 39.8 % (35.5-45.6) 02/03/19 02:40 MCV 92 fl (84-94) 02/03/19 02:40 MCH 31 pg (28-32) 02/03/19 02:40 MCHC 34 % (32-34) 02/03/19 02:40 RDW 12.8 % (13.2-15.2) L 02/03/19 02:40 Plt Count 160 K/mm3 (140-440) 02/03/19 02:40 Lymph % (Auto) 16.5 % (13.4-35.0) 02/03/19 02:40 [place] % (Auto) 6.2 % (0.0-7.3) 02/03/19 02:40 Eos % (Auto) 4.8 % (0.0-4.3) H 02/03/19 02:40 Baso % (Auto) 0.6 % (0.0-1.8) 02/03/19 02:40 Lymph # 1.4 K/mm3 (1.2-5.4) 02/03/19 02:40 [place] # 0.5 K/mm3 (0.0-0.8) 02/03/19 02:40 Eos # 0.4 K/mm3 (0.0-0.4) 02/03/19 02:40 Baso # 0.0 K/mm3 (0.0-0.1) 02/03/19 02:40 Seg Neutrophils % 71.9 % (40.0-70.0) H 02/03/19 02:40 Seg Neutrophils # 6.2 K/mm3 (1.8-7.7) 02/03/19 02:40 Activated Clotting Time 301 (74-137) H 02/03/19 06:08 Sodium 135 mmol/L (137-145) L 02/03/19 02:40 Potassium 3.8 mmol/L (3.6-5.0) 02/03/19 02:40 Chloride 100.2 mmol/L (98-107) 02/03/19 02:40 Carbon Dioxide 19 mmol/L (22-30) L 02/03/19 02:40 Anion Gap 20 mmol/L 02/03/19 02:40 BUN 15 mg/dL (9-20) 02/03/19 02:40 Creatinine 0.8 mg/dL (0.8-1.5) 02/03/19 02:40 Estimated GFR > 60 ml/min 02/03/19 02:40 BUN/Creatinine Ratio 19 % 02/03/19 02:40 Glucose 213 mg/dL (75-100) H 02/03/19 02:40 POC Glucose 175 (70-105) H 02/03/19 16:08 Calcium 8.5 mg/dL (8.4-10.2) 02/03/19 02:40 Troponin T 1.160 ng/mL (0.00-0.029) H* 02/03/19 02:40 Assessment and Plan Assessment and plan: I saw and evaluated the patient. I agree with the findings and the plan of care as documented in the Nurse Practitioner's~note, with the following corrections and additions. Patient treated for unstable angina and Placed stent to Circumflex Stenosis: " LAD stent was widely patent. He ever was noted to have a hazy 70-80% circumflex stenosis and underwent PCI with excellent results" Discussed with patient and cardiology team. No further complaints Advance Directives: Yes Plan of care discussed with patient/family: Yes
[2019-02-03] MEDS ORDERED: ASPIRIN 81 MG TAB CHEW PO SCH (10:00)
[2019-02-03] MEDS ORDERED: NON-FORMULARY EACH (Metformin Hcl [Metformin] 1,000 MG) PO SCH (10:00)
[2019-02-03] MEDS ORDERED: FAMOTIDINE 20 MG TAB PO SCH (10:00)
[2019-02-03] MEDS ORDERED: SITAGLIPTIN PHOSPHATE 50 MG PO SCH (10:00)
[2019-02-03] MEDS: carvediloL 3.125 MG TAB PO SCH ×2 (10:20→21:21)
[2019-02-03] MEDS: ASPIRIN EC 81 MG TAB PO SCH (10:21)
[2019-02-03] MEDS: PANTOPRAZOLE 40 MG TAB PO SCH (10:21)
--- NOTE | 2019-02-03 10:42 | Cardiac Catherization Report ---
PERCUTANEOUS CORONARY INTERVENTION REPORT PROCEDURE PERFORMED: 1. Selective left heart catheterization. 2. Percutaneous coronary intervention of the mid circumflex artery. FILLER SHREDDER: Dr. Shah. SEDATION: Moderate sedation with Versed and fentanyl. INDICATION: The patient is a 63-year-old male who was recently discharged from hospital after primary PCI for an acute anterior myocardial infarction. On discharge, the patient started experiencing severe epigastric pain radiating to the back and his throat associated with diaphoresis. EKG revealed anterior Q-waves. 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 PROCEDURE DETAILS: Informed consent was obtained from the patient. The patient was cleaned and draped in the usual sterile fashion. Using the standard technique, a 6-Dominican sheath was placed in the right radial artery. Sheath was cleaned and flushed. A radial cocktail with standard doses of heparin, verapamil and nitroglycerin was given. We directly proceeded with an XB 3.5 guide to engage the left main. After initial angiogram, additional heparin was given and we decided to proceed with PCI. A BMW wire was used as a standard guidewire. After initial predilatation, a 2.5 x 12 mm Resolute drug-eluting stent was deployed across the stenosis with excellent results. A wire was removed. Angiogram repeated after intracoronary nitroglycerin and excellent results noted. The guide was removed over the wire and the patient was given 180 mg of Brilinta. Radial sheath removed and TR band applied. Complete hemostasis was obtained. FINDINGS: Hemodynamics AO 116/82. ANGIOGRAM DETAILS: 1. Left main angiographically normal. 2. LAD is a medium caliber vessel. Widely patent mid LAD stent noted. There is, however, an eccentric long 50-60% stenosis proximal to the stent. Also, diagonal that comes off from the mid portion of the stent has mild to moderate diffuse disease. 3. Circumflex is a small caliber vessel. Hazy 70-80% mid stenosis noted. 4. Right coronary artery: The patient had recent angiogram revealing widely patent right coronary artery hence right coronary artery angiogram was not done. LESION DETAILS: 1. Preprocedure lesion, mid circumflex. 2. Preprocedure stenosis, 70-80% hazy stenosis. 3. NIELS flow 2. 4. Stent deployed 2.5 x 12 mm Resolute drug-eluting stent. 5. Postprocedure stenosis 0%. 6. Postprocedure NIELS flow 3. IMPRESSION: 1. Status post successful percutaneous intervention of the mid circumflex in the setting of unstable angina. 2. Widely patent recently deployed left anterior descending stent. 3. 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 PLAN: 1. Routine post-PCI care. 2. Dual antiplatelet therapy for 1 year, preferably more. 3. Routine adjuvant pharmacotherapy post-PCI. 4. Routine radial artery sheath care. JOB# [id number] SHAYLA/NTS
[2019-02-03] MEDS: INSULIN LISPRO 100 UNIT/ML SUB-Q SCH ×2 (13:05→17:00)
[2019-02-03] MEDS: TICAGRELOR 90 MG TAB PO SCH (21:21)
[2019-02-04] MEDS: INSULIN LISPRO 100 UNIT/ML SUB-Q SCH ×3 (00:22→12:24)
[2019-02-04 04:35] LABS: Basophils % (Auto) 0.3 % (0.0-1.8); Eosinophils # (Auto) 0.4 K/mm3 (0.0-0.4); Eosinophils % (Auto) 5.5 % (0.0-4.3); Hematocrit 37.7 % (35.5-45.6); Hemoglobin 12.7 gm/dl (11.8-15.2); Lymphocytes # (Auto) 1.7 K/mm3 (1.2-5.4); Mean Corpuscular HGB Conc 34 % (32-34); Mean Corpuscular Volume 92 fl (84-94); Monocytes # (Auto) 0.6 K/mm3 (0.0-0.8); Platelet Count 154 K/mm3 (140-440); Red Cell Distribution Width 12.6 % (13.2-15.2)
[2019-02-04 04:59] LABS: Creatine Kinase MB 1.8 ng/mL (0.0-4.0)
[2019-02-04 05:00] LABS: BUN/Creatinine Ratio 16; Blood Urea Nitrogen 13 mg/dL (9-20); Calcium 8.4 mg/dL (8.4-10.2); Hemolysis Index 2
[2019-02-04] MEDS ORDERED: LINAGLIPTIN 5 MG TAB PO SCH (08:00)
[2019-02-04] MEDS: PANTOPRAZOLE 40 MG TAB PO SCH (09:13)
[2019-02-04] MEDS: TICAGRELOR 90 MG TAB PO SCH (09:14)
[2019-02-04] MEDS: ASPIRIN EC 81 MG TAB PO SCH (09:14)
[2019-02-04] MEDS: carvediloL 3.125 MG TAB PO SCH (09:14)
--- NOTE | 2019-02-04 11:09 | Progress Note ---
<AISHA LOPEZ - Last Filed: 02/04/19 11:09> Assessment and Plan Unstable angina status post PCI of the circumflex; on Brilinta and aspirin Recent anterior ST elevation DE status post primary PCI of the LAD with drug-eluting stent widely patent stent on cardiac cath this presentation Hyperlipidemia Ischemic cardiomyopathy EF 40-45% on previous admission Diabetes Continue medical therapy for coronary artery disease including dual antiplatelet therapy with Brilinta and aspirin without interruption. Stable cardiac mancuso for discharge home today. [facility] as scheduled on February 11. Subjective Date of service: 02/04/19 Interval history: Patient is resting in bed and appears well. He denies chest pain. Objective Vital Signs Temp Pulse Resp BP Pulse Ox 02/04/19 09:14 67 107/63 02/04/19 08:52 99.0 F 67 18 107/73 94 02/04/19 04:34 97.8 F 63 18 98/62 93 02/04/19 00:11 64 02/04/19 00:09 98.6 F 68 18 103/68 93 02/03/19 21:21 64 100/69 02/03/19 21:06 96 02/03/19 19:30 98.3 F 64 18 100/69 97 02/03/19 16:02 98.3 F 62 18 99/66 95 02/03/19 13:01 20 02/03/19 12:53 94/64 02/03/19 12:36 87/53 02/03/19 12:00 89/57 02/03/19 11:42 98.0 F 70 18 104/69 93 02/03/19 11:17 71 105/66 93 - Physical Examination General: No Apparent Distress HEENT: Positive: PERRL Neck: Positive: neck supple Cardiac: Positive: Reg Rate and Rhythm Lungs: Positive: Decreased Breath Sounds Neuro: Positive: Grossly Intact Abdomen: Positive: Unremarkable Skin: Positive: Clear Extremities: Present: normal - Labs and Meds Cardiac Enzymes 02/04/19 Range/Units 03:26 CK-MB (CK-2) 1.8 (0.0-4.0) ng/mL CBC 02/04/19 Range/Units 03:26 WBC 6.4 (4.5-11.0) K/mm3 RBC 4.10 (3.65-5.03) M/mm3 Hgb 12.7 (11.8-15.2) gm/dl Hct 37.7 (35.5-45.6) % Plt Count 154 (140-440) K/mm3 Lymph # 1.7 (1.2-5.4) K/mm3 [place] # 0.6 (0.0-0.8) K/mm3 Eos # 0.4 (0.0-0.4) K/mm3 Baso # 0.0 (0.0-0.1) K/mm3 Comprehensive Metabolic Panel 02/04/19 Range/Units 03:26 Sodium 138 (137-145) mmol/L Potassium 3.6 (3.6-5.0) mmol/L Chloride 102.5 (98-107) mmol/L Carbon Dioxide 19 L (22-30) mmol/L BUN 13 (9-20) mg/dL Creatinine 0.8 (0.8-1.5) mg/dL Glucose 148 H (75-100) mg/dL Calcium 8.4 (8.4-10.2) mg/dL <SUMAN ROLON - Last Filed: 02/04/19 12:14> Assessment and Plan I've seen and evaluated the patient and agree with the assessment and plan. The patient was recently discharged from hospital having had a recent subacute anterior ST elevation myocardial infarction status post PCI of the LAD with placement of a drug-eluting stent. Patient return to the hospital with unstable angina. Patient was taking the cardiac Greeting Card Writer where he had PCI of the left circumflex coronary artery. Patient LAD stent was found to be widely patent. Patient is to continue current medical therapy for treatment of coronary artery disease with dual antiplatelet therapy for at least one year, high intensity statin, and beta ranjith. Patient is currently stable and ready for discharge. Objective Vital Signs Temp Pulse Resp BP Pulse Ox 02/04/19 11:37 97.9 F 66 18 106/72 95 02/04/19 11:18 18 98 02/04/19 10:00 66 02/04/19 09:14 67 107/63 02/04/19 08:52 99.0 F 67 18 107/73 94 02/04/19 04:34 97.8 F 63 18 98/62 93 02/04/19 00:11 64 02/04/19 00:09 98.6 F 68 18 103/68 93 02/03/19 21:21 64 100/69 02/03/19 21:06 96 02/03/19 19:30 98.3 F 64 18 100/69 97 02/03/19 16:02 98.3 F 62 18 99/66 95 02/03/19 13:01 20 02/03/19 12:53 94/64 02/03/19 12:36 87/53 - Labs and Meds Cardiac Enzymes 02/04/19 Range/Units 03:26 CK-MB (CK-2) 1.8 (0.0-4.0) ng/mL CBC 02/04/19 Range/Units 03:26 WBC 6.4 (4.5-11.0) K/mm3 RBC 4.10 (3.65-5.03) M/mm3 Hgb 12.7 (11.8-15.2) gm/dl Hct 37.7 (35.5-45.6) % Plt Count 154 (140-440) K/mm3 Lymph # 1.7 (1.2-5.4) K/mm3 [place] # 0.6 (0.0-0.8) K/mm3 Eos # 0.4 (0.0-0.4) K/mm3 Baso # 0.0 (0.0-0.1) K/mm3 Comprehensive Metabolic Panel 02/04/19 Range/Units 03:26 Sodium 138 (137-145) mmol/L Potassium 3.6 (3.6-5.0) mmol/L Chloride 102.5 (98-107) mmol/L Carbon Dioxide 19 L (22-30) mmol/L BUN 13 (9-20) mg/dL Creatinine 0.8 (0.8-1.5) mg/dL Glucose 148 H (75-100) mg/dL Calcium 8.4 (8.4-10.2) mg/dL
[2019-02-04 11:38] VITALS: BP 106/72
--- NOTE | 2019-02-04 11:49 | Discharge Summary ---
Providers - Providers Date of Admission: 02/03/19 07:03 Attending physician: JAN ALBRIGHT MD 02/03/19 Consult to Cardiac Rehabilitation [CONS] Routine Reason For Exam: Phase I Consult to Cardiac Rehabilitation [CONS] Routine Reason For Exam: post pci 02/03/19 04:53 Consult to Physician [CONS] Stat Comment: Consulting Provider: MARISSA EDWARDS Physician Instructions: Reason For Exam: acute NM Primary care physician: DOUBLE NEEDLE OPERATOR Hospitalization Reason for admission: chest pain Condition: Stable Hospital course: Pt is a 63-year-old male with a past medical history of NM, diabetes, hypertension, HLD who presented to [facility] ED with complaints of chest pain since last PM. Pt reports he was recently discharged 02/02/19 after stent was placed on 01/28/2019 . He reports chest pain 8/10 that was accompanied with nausea and radiates to L arm. Pt sts pain was unrelieved by medications he was sent home with. EKG changes and increasing Troponins were noted in the ER and patient was taken to cardiac cath technician for PCI, pt reports no chest pain at this time, only discomfort from R hand radial artery sheath. doing well this am Patient treated for unstable angina and Placed stent to Circumflex Stenosis: " LAD stent was widely patent. He ever was noted to have a hazy 70-80% circumflex stenosis and underwent PCI with excellent results" Discussed with patient and cardiology team. No further complaints Unstable Angina - antiplatelet therapy - Routine post-PCI care -Patient returned to the cardiac cath technician with Placed stent to Circumflex Stenosis: "LAD stent was widely patent. He ever was noted to have a hazy 70-80% circumflex stenosis and underwent PCI with excellent results" NSTEMI with CAD s/p PCI - continue current statin therapy Hypertension - currently blood pressure normal, -continue current treatment Diabetes -insulin therapy continued Disposition: DC-01 TO HOME OR SELFCARE Time spent for discharge: 35 mins Core Measure Documentation - Palliative Care Palliative Care/ Comfort Measures: Not Applicable - Core Measures Any of the following diagnoses?: none Exam - Constitutional Vitals: Temp Pulse Resp BP Pulse Ox 97.9 F 66 18 106/72 95 02/04/19 11:37 02/04/19 11:37 02/04/19 11:37 02/04/19 11:37 02/04/19 11:37 General appearance: Present: no acute distress, well-nourished - EENT Eyes: Present: PERRL, EOM intact ENT: clear oral mucosa - Neck Neck: Present: supple, normal ROM - Respiratory Respiratory effort: normal Respiratory: bilateral: CTA - Cardiovascular Rhythm: regular Heart Sounds: Present: S1 & S2. Absent: systolic murmur, diastolic murmur - Extremities Extremities: no ischemia, pulses intact, pulses symmetrical, No edema, normal temperature, normal color, Full ROM Peripheral Pulses: within normal limits - Abdominal General gastrointestinal: Present: soft, non-tender, non-distended, normal bowel sounds - Integumentary Integumentary: Present: clear, warm, dry - Musculoskeletal Musculoskeletal: strength equal bilaterally - Psychiatric Psychiatric: appropriate mood/affect, intact judgment & insight, cooperative - Neurologic Neurologic: CNII-XII intact, moves all extremities - Allied Health Allied health notes reviewed: nursing Plan Activity: advance as tolerated, fall precautions Diet: low fat Special Instructions: record daily BP diary, smoking cessation Follow up with: SUMAN ROLON MD [Staff Physician] - 7 Days PRIMARY CARE, [Primary Care Provider] - 7 Days Prescriptions: Ticagrelor [Brilinta] 90 mg PO BID #90 tablet Pantoprazole [Protonix TAB] 40 mg PO DAILY #30 tablet Ranolazine ER [Ranexa ER] 500 mg PO BID #60 tablet
[2019-02-04] MEDS ORDERED: RANOLAZINE ER 500 MG TAB 12HR PO SCH (22:00)
[2019-02-05] MEDS ORDERED: metFORMIN 500 MG TAB PO SCH (08:00)
[2019-02-07] MEDS ORDERED: ERGOCALCIFEROL (VIT D2) 50,000 UNIT CAP PO SCH (10:00)
== END 2019-02-04 14:04 | disposition home or self-care (01) ==
LOC: ED 02:19 → CC1 07:03 → INTOOBSV 07:03 → 4A 08:07
PROVIDERS: ADMIT Internal Medicine Geriatric Medicine; ATTEND Internal Medicine
DX: I25.110 Atherosclerotic heart disease of native coronary artery with unstable angina pectoris (principal); I25.5 Ischemic cardiomyopathy; I21.9 Acute myocardial infarction, unspecified; I25.2 Old myocardial infarction; I10 Essential (primary) hypertension; E78.5 Hyperlipidemia, unspecified; E11.9 Type 2 diabetes mellitus without complications; K21.9 Gastro-esophageal reflux disease without esophagitis; Z87.891 Personal history of nicotine dependence; Z95.5 Presence of coronary angioplasty implant and graft; Z79.82 Long term (current) use of aspirin; Z79.4 Long term (current) use of insulin
CPT/HCPCS: 36415; 71045; 80048; 82550; 82553; 82962; 84484; 85025; 85347; 93005; 93010; 93454; 94760; 96372; 99291; A9270; C1725; C1769; C1874; C1887; C1894; C9600; G0378; J1644; J2250; J2405; J3010; J7040; 92928; J0171; J0461; J1815; J2001; Q9967

== ENCOUNTER 2019-02-20 11:41 | Inpatient (IN) | payer MEDICARE ==
[2019-02-20] MEDS ORDERED: ASPIRIN 325 MG TAB PO ONE (11:58)
--- NOTE | 2019-02-20 11:59 | Event Note ---
ED Screening Note Date of service: 02/20/19 Time: 11:56 ED Screening Note: This is a 63 y.o. M. that presents to the ER with chest pain and change in blood pressure since waking this morning. PMH of DM, HTN, & NH with stents x 2 Reports chest discomfort or pressure intensity. This initial assessment/diagnostic orders/clinical plan/treatment(s) is/are subject to change based on patients health status, clinical progression and re- assessment by fellow clinical providers in the ED. Further treatment and workup at subsequent clinical providers discretion. Patient/guardian urged not to elope from the ED as their condition may be serious if not clinically assessed and managed. Initial orders include: Labs, EKG, & CXR
--- NOTE | 2019-02-20 12:22 | Event Note ---
Date: 02/20/19 63-year-old gentleman presenting with complaint of painless low blood pressure, believe systolic was 99. He denies physical chest pain, and currently denies shortness of breath and nausea. He is currently afebrile with reassuring vital signs. His EKG is fairly abnormal, but appears to be grossly unchanged from prior EKG from January 2019, with the exception of more dramatic T-wave inversions. His EKG from today and previously with transmitted to his personal curator of manuscripts, Dr. Alec Shah, who also agreed that patient did not meet criteria for emergent activation of the cardiac catheterization lab. Workup to proceed as planned, cardiology amenable to follow consultation Vital Signs 02/20/19 11:56 Temperature 98.1 F Pulse Rate 67 Respiratory 18 Rate Blood Pressure 113/78 O2 Sat by Pulse 98 Oximetry
--- NOTE | 2019-02-20 12:23 | XRay Report ---
CHEST 1 VIEW INDICATION: Chest Pain. COMPARISON: 02/03/2019. FINDINGS: Support devices: None. Heart: Within normal limits. Lungs/Pleura: No acute air space or interstitial disease. Additional findings: None. IMPRESSION: Normal AP chest Signer Name: Geovany Lewis Jr, MD Signed: 02/20/2019 12:18 PM Workstation Name: [id number]
[2019-02-20 13:48] LABS: Basophils % (Auto) 0.5 % (0.0-1.8); Eosinophils # (Auto) 0.2 K/mm3 (0.0-0.4); Eosinophils % (Auto) 4.1 % (0.0-4.3); Hematocrit 42.5 % (35.5-45.6); Hemoglobin 14.5 gm/dl (11.8-15.2); Lymphocytes # (Auto) 1.2 K/mm3 (1.2-5.4); Lymphocytes % (Auto) 21.3 % (13.4-35.0); Mean Corpuscular HGB Conc 34 % (32-34); Mean Corpuscular Volume 92 fl (84-94); Monocytes # (Auto) 0.5 K/mm3 (0.0-0.8); Monocytes % (Auto) 9.2 % (0.0-7.3); Platelet Count 196 K/mm3 (140-440); Red Blood Count 4.63 M/mm3 (3.65-5.03)
[2019-02-20 13:58] LABS: INR 1.07 (0.87-1.13)
[2019-02-20 13:59] LABS: Partial Thromboplastin Time 27.8 Sec. (24.2-36.6)
[2019-02-20 14:10] LABS: BUN/Creatinine Ratio 15; Blood Urea Nitrogen 12 mg/dL (9-20); Hemolysis Index 6
--- NOTE | 2019-02-20 20:05 | Emergency Department Report ---
ED Chest Pain HPI - General Chief Complaint: Chest Pain Stated Complaint: NEED BLOOD PRESSURE CHECK Time Seen by Provider: 02/20/19 11:56 Source: patient Mode of arrival: Ambulatory Limitations: No Limitations - History of Present Illness Initial Comments: 63-year-old male presents to the emergency room complaining of chest pressure and having a warm sensation chest and back. Patient also has concern for low blood pressure with a systolic of 99 at home but pressure check. Patient has a history of IL, hyperlipidemia , hypertension and diabetes. Patient recently had anterior IL in 02/03/2019 and had a PCI at that same date. Patient also had a PCI on 01/28/2019 for LAD with a left cardiac catheterization . He is followed by dividend clerk Dr. Giles . He denies any recent falls. Does admit to nausea and sweats denies any vomiting admits to cough. Patient denies any family history of cardiac disease. Does not smoke cigarettes. MD Complaint: chest pain -: This morning Onset: during rest Pain Location: substernal Pain Radiation: back Severity scale (0 -10): 5 Quality: pressure Consistency: constant Improves With: nothing Worsens With: nothing re: nausea, diaphoresis. denies: vomting Other Symptoms: cough Treatments Prior to Arrival: none - Related Data Home Medications Medication Instructions Recorded Confirmed Last Taken Ergocalciferol [Vitamin D2] 1 tab PO QWEEK 01/28/19 02/03/19 01/24/19 50,000 units Previous Rx's Medication Instructions Recorded Last Taken Type Aspirin EC [Halfprin EC] 81 mg PO QDAY #30 tablet 02/02/19 Unknown Rx AtorvaSTATin [Lipitor] 80 mg PO QHS #30 tablet 02/02/19 Unknown Rx Metformin HCl [metFORMIN] 1,000 mg PO BID #60 02/02/19 Unknown Rx Sitagliptin Phosphate [Januvia] 50 mg PO DAILY #30 02/02/19 Unknown Rx carvediloL [Coreg] 3.125 mg PO BID #60 tablet 02/02/19 Unknown Rx traMADoL [Ultram 50 MG tab] 50 mg PO Q4H PRN #30 tablet 02/02/19 Unknown Rx Pantoprazole [Protonix TAB] 40 mg PO DAILY #30 tablet 02/04/19 Unknown Rx Ranolazine ER [Ranexa ER] 500 mg PO BID #60 tablet 02/04/19 Unknown Rx Ticagrelor [Brilinta] 90 mg PO BID #90 tablet 02/04/19 Unknown Rx Allergies Allergy/AdvReac Type Severity Reaction Status Date / Time No Known Allergies Allergy Unverified 01/28/19 13:50 Heart Score - HEART Score History: Moderately suspicious EKG: Non-specific Age: 45-65 Risk factors: > 3 risk factors or hx of atherosclerotic disease Troponin: < normal limit HEART Score: 5 ED Review of Systems ROS: Stated complaint: NEED BLOOD PRESSURE CHECK Other details as noted in HPI Comment: All other systems reviewed and negative Cardiovascular: chest pain Endocrine: excessive sweating Gastrointestinal: nausea. denies: vomiting ED Past Medical Hx - Past Medical History Previous Medical History?: Yes Hx Hypertension: Yes Hx Heart Attack/AMI: Yes Hx Congestive Heart Failure: No Hx Diabetes: Yes Hx GERD: Yes Hx Asthma: No Hx COPD: No Hx HIV: No Additional medical history: hyperlipidemia - Surgical History Past Surgical History?: Yes Hx Coronary Stent: Yes Additional Surgical History: hernia repair - Social History Smoking Status: Never Smoker Substance Use Type: None - Medications Home Medications: Home Medications Medication Instructions Recorded Confirmed Last Taken Type Ergocalciferol [Vitamin D2] 1 tab PO QWEEK 01/28/19 02/03/19 01/24/19 History 50,000 units Aspirin EC [Halfprin EC] 81 mg PO QDAY #30 tablet 02/02/19 02/03/19 Unknown Rx AtorvaSTATin [Lipitor] 80 mg PO QHS #30 tablet 02/02/19 02/03/19 Unknown Rx Metformin HCl [metFORMIN] 1,000 mg PO BID #60 02/02/19 02/03/19 Unknown Rx Sitagliptin Phosphate [Januvia] 50 mg PO DAILY #30 02/02/19 02/03/19 Unknown Rx carvediloL [Coreg] 3.125 mg PO BID #60 tablet 02/02/19 02/03/19 Unknown Rx traMADoL [Ultram 50 MG tab] 50 mg PO Q4H PRN #30 tablet 02/02/19 02/03/19 Unknown Rx Pantoprazole [Protonix TAB] 40 mg PO DAILY #30 tablet 02/04/19 Unknown Rx Ranolazine ER [Ranexa ER] 500 mg PO BID #60 tablet 02/04/19 Unknown Rx Ticagrelor [Brilinta] 90 mg PO BID #90 tablet 02/04/19 Unknown Rx ED Physical Exam - General Limitations: No Limitations ED Course Vital Signs 02/20/19 02/20/19 11:56 16:53 Temperature 98.1 F 97.7 F Pulse Rate 67 78 Respiratory 18 18 Rate Blood Pressure 113/78 134/88 O2 Sat by Pulse 98 Oximetry HIRA score - Hira Score Age > 65: (0) No Aspirin use within the Past 7 Days: (0) No 3 or more CAD Risk Factors: (1) Yes 2 or more Angina events in past 24 hrs: (1) Yes Known CAD with more than 50% Stenosis: (0) No Elevated Cardiac Markers: (0) No ST Deviation Greater than 0.5mm: (1) Yes HIRA Score: 3 ED Medical Decision Making - Lab Data Result diagrams: 02/20/19 13:03 02/20/19 13:03 - Radiology Data Radiology results: report reviewed Patient: CHRISTIANNE HUGHSE MR#: [id number] : 1955 Acct:[id number] Age/Sex: 63 / M ADM Date: 02/20/19 Loc: ED Attending Dr: Ordering Physician: GREG ODONNELL Date of Service: 02/20/19 Procedure(s): XR chest 1V ap Accession Number(s): [id number] cc: GREG ODONNELL Fluoro Time In Minutes: CHEST 1 VIEW INDICATION: Chest Pain. COMPARISON: 02/03/2019. FINDINGS: Support devices: None. Heart: Within normal limits. Lungs/Pleura: No acute air space or interstitial disease. Additional findings: None. IMPRESSION: Normal AP chest Signer Name: Geovany Lewis Jr, MD Signed: 02/20/2019 12:18 PM Workstation Name: [id number] Transcribed By: TTR Dictated By: GEOVANY LEWIS JR, MD Electronically Authenticated By: GEOVANY LEWIS JR, MD Signed Date/Time: 02/20/191217 DD/ 17 TD/TT: Critical care attestation.: If time is entered above; I have spent that time in minutes in the direct care of this critically ill patient, excluding procedure time. ED Disposition Condition: Stable Referrals: [facility] [Other] - 3-5 Days
[2019-02-20] MEDS ORDERED: ONDANSETRON 4 MG/2 ML INJ IV PRN (22:25)
[2019-02-20] MEDS ORDERED: MORPHINE 2 MG/1 ML INJ IV PRN ×2 (22:25)
[2019-02-20] MEDS ORDERED: ACETAMINOPHEN 325 MG TAB PO PRN (22:25)
[2019-02-20] MEDS ORDERED: NITROGLYCERIN 0.4 MG TAB SUBL SL PRN (22:25)
[2019-02-20] MEDS ORDERED: MAGNESIUM HYDROXIDE (MOM) ORAL LIQD UDC PO PRN (22:25)
[2019-02-20] MEDS ORDERED: DEXTROSE 50% IN WATER (25GM) 50 ML SYRINGE IV PRN (22:25)
[2019-02-21 00:15] LABS: BUN/Creatinine Ratio 14; Blood Urea Nitrogen 14 mg/dL (9-20); Calcium 8.7 mg/dL (8.4-10.2); Hemolysis Index 3
[2019-02-21 01:16] LABS: Hematocrit 40.2 % (35.5-45.6); Hemoglobin 13.8 gm/dl (11.8-15.2); Mean Corpuscular HGB Conc 34 % (32-34); Mean Corpuscular Volume 92 fl (84-94); Platelet Count 177 K/mm3 (140-440); Red Blood Count 4.39 M/mm3 (3.65-5.03); Red Cell Distribution Width 12.9 % (13.2-15.2)
--- NOTE | 2019-02-21 01:44 | History and Physical Report ---
History of Present Illness Date of examination: 02/20/19 Date of admission: 02/20/19 22:25 Chief complaint: Chest pain History of present illness: Except 3-year-old male with known history of coronary artery disease, hypertension, hyperlipidemia and diabetes mellitus. He presents to the emergency room today complaining of chest pain. Chest pain is said to be left- sided. Chest pain felt like pressure. There is no no relieving or exacerbating factor, pain has been ongoing on and off today. He also indicates that his blood pressure has been low at home with systolic in the 90s but denies any dizziness. He has had some nausea but no vomiting. He has had occasional sweats. Patient has significant history of anterior ID on 02/03/2019 during which patient had stent placement, he also had fusion of the LAD on 01/28/2019 during which he had cardiac catheterization and stent placement. Follows up with mechanical detailer Dr. Giles. His work-up in the emergency room today did not show any significant changes on the EKG from previous except for some T wave inversion. Corrosion Control Engineer on-call has been notified and the patient will be promptly evaluated. Past History Past Medical History: CAD, diabetes, hypertension, hyperlipidemia Past Surgical History: hernia repair Social history: no significant social history Family history: no significant family history Medications and Allergies Allergies Allergy/AdvReac Type Severity Reaction Status Date / Time No Known Allergies Allergy Unverified 01/28/19 13:50 Home Medications Medication Instructions Recorded Confirmed Last Taken Type Aspirin EC [Halfprin EC] 81 mg PO QDAY #30 tablet 02/02/19 02/20/19 Unknown Rx AtorvaSTATin [Lipitor] 80 mg PO QHS #30 tablet 02/02/19 02/20/19 Unknown Rx Metformin HCl [metFORMIN] 1,000 mg PO BID #60 02/02/19 02/20/19 Unknown Rx carvediloL [Coreg] 3.125 mg PO BID #60 tablet 02/02/19 02/20/19 Unknown Rx traMADoL [Ultram 50 MG tab] 50 mg PO Q4H PRN #30 tablet 02/02/19 02/20/19 Unknown Rx Pantoprazole [Protonix TAB] 40 mg PO DAILY #30 tablet 02/04/19 02/20/19 Unknown Rx Ranolazine ER [Ranexa ER] 500 mg PO BID #60 tablet 02/04/19 02/20/19 Unknown Rx Ticagrelor [Brilinta] 90 mg PO BID #90 tablet 02/04/19 02/20/19 Unknown Rx Lisinopril [Zestril TAB] 2.5 mg PO QDAY 02/20/19 02/20/19 Unknown History Sitagliptin Phosphate [Januvia] 50 mg PO QDAY 02/20/19 02/20/19 Unknown History Active Meds: Active Medications Acetaminophen (Tylenol) 650 mg PO Q4H PRN PRN Reason: Pain MILD(1-3)/Fever >100.5/VILLALOBOS Aspirin (Ecotrin) 325 mg PO QDAY [facility] Dextrose (D50w (25gm) Syringe) 0 ml IV Q30MIN PRN; Protocol PRN Reason: Hypoglycemia Insulin Human Lispro (Humalog) 0 unit SUB-Q ACHS [facility]US[facility]; Protocol Magnesium Hydroxide (Milk Of Magnesia) 30 ml PO Q4H PRN PRN Reason: Constipation Morphine Sulfate (Morphine) 2 mg IV Q4H PRN PRN Reason: Pain, Moderate (4-6) Morphine Sulfate (Morphine) 2 mg IV Q5MIN PRN PRN Reason: Chest Pain unrelieved by NTG Nitroglycerin (Nitrostat) 0.4 mg SL Q5M PRN PRN Reason: Chest Pain Ondansetron HCl (Zofran) 4 mg IV Q8H PRN PRN Reason: Nausea And Vomiting Sodium Chloride (Sodium Chloride Flush Syringe 10 Ml) 10 ml IV BID [facility] Sodium Chloride (Sodium Chloride Flush Syringe 10 Ml) 10 ml IV PRN PRN PRN Reason: LINE FLUSH Review of Systems Cardiovascular: chest pain Exam - Constitutional Vitals: Temp Pulse Resp BP Pulse Ox 98.0 F 65 16 107/73 96 02/21/19 00:04 02/21/19 00:04 02/21/19 00:04 02/21/19 00:04 02/21/19 00:04 General appearance: Present: no acute distress, well-nourished - EENT Eyes: Present: PERRL, EOM intact ENT: hearing intact, clear oral mucosa, dentition normal - Neck Neck: Present: supple, normal ROM - Respiratory Respiratory effort: normal Respiratory: bilateral: CTA - Cardiovascular Rhythm: regular Heart Sounds: Present: S1 & S2 - Extremities Extremities: no ischemia, pulses intact, pulses symmetrical, No edema, Full ROM Peripheral Pulses: within normal limits - Abdominal General gastrointestinal: Present: soft, non-tender, non-distended, normal bowel sounds - Integumentary Integumentary: Present: clear, warm, dry - Musculoskeletal Musculoskeletal: strength equal bilaterally - Psychiatric Psychiatric: appropriate mood/affect, intact judgment & insight, cooperative - Neurologic Neurologic: CNII-XII intact, moves all extremities Results - Labs CBC & Chem 7: 02/21/19 00:15 02/20/19 23:30 Labs: Abnormal lab results 02/20/19 02/20/19 02/20/19 Range/Units 13:03 13:03 16:36 RDW 13.0 L (13.2-15.2) % [place] % (Auto) 9.2 H (0.0-7.3) % Sodium (137-145) mmol/L Carbon Dioxide (22-30) mmol/L Glucose 120 H (75-100) mg/dL POC Glucose 134 H (70-105) 02/20/19 02/21/19 Range/Units 23:30 00:15 RDW 12.9 L (13.2-15.2) % [place] % (Auto) (0.0-7.3) % Sodium 136 L (137-145) mmol/L Carbon Dioxide 21 L (22-30) mmol/L Glucose 118 H (75-100) mg/dL POC Glucose (70-105) Assessment and Plan - Patient Problems (1) Chest pain Current Visit: No Status: Acute Plan to address problem: Patient has known history of coronary artery disease. Will monitor cardiac enzymes. We will placed on aspirin, sublingual nitroglycerin and IV morphine as needed. We will request cardiology evaluation and recommendation. (2) Diabetes mellitus Current Visit: Yes Status: Acute Plan to address problem: We will monitor Accu-Cheks. (3) Hyperlipidemia Current Visit: Yes Status: Acute Plan to address problem: We will monitor lipid profile and continue routine home medication. (4) Hypertension Current Visit: Yes Status: Acute Plan to address problem: Blood pressure stable. Will monitor vital signs closely. (5) DVT prophylaxis Current Visit: Yes Status: Acute Plan to address problem: Patient placed on subcutaneous heparin. (6) Full code status Current Visit: Yes Status: Acute
[2019-02-21 05:43] LABS: Basophils % (Auto) 0.8 % (0.0-1.8); Eosinophils # (Auto) 0.3 K/mm3 (0.0-0.4); Eosinophils % (Auto) 5.9 % (0.0-4.3); Hematocrit 40.4 % (35.5-45.6); Hemoglobin 13.8 gm/dl (11.8-15.2); Lymphocytes # (Auto) 1.5 K/mm3 (1.2-5.4); Lymphocytes % (Auto) 30.5 % (13.4-35.0); Mean Corpuscular HGB Conc 34 % (32-34); Mean Corpuscular Volume 91 fl (84-94); Monocytes # (Auto) 0.5 K/mm3 (0.0-0.8); Monocytes % (Auto) 10.2 % (0.0-7.3); Platelet Count 176 K/mm3 (140-440); Red Blood Count 4.43 M/mm3 (3.65-5.03); Red Cell Distribution Width 12.9 % (13.2-15.2)
[2019-02-21 05:53] LABS: INR 1.02 (0.87-1.13)
[2019-02-21 05:54] LABS: Partial Thromboplastin Time 39.3 Sec. (24.2-36.6)
[2019-02-21] MEDS ORDERED: HEPARIN 5,000 UNIT/1 ML VIAL SUB-Q SCH (06:00)
[2019-02-21 06:03] LABS: BUN/Creatinine Ratio 16; Blood Urea Nitrogen 13 mg/dL (9-20); Calcium 8.7 mg/dL (8.4-10.2); Hemolysis Index 5
[2019-02-21] MEDS: INSULIN LISPRO 100 UNIT/ML SUB-Q SCH ×4 (08:24→21:31)
[2019-02-21] MEDS: carvediloL 3.125 MG TAB PO SCH ×2 (08:55→17:22)
[2019-02-21] MEDS ORDERED: ASPIRIN EC 325 MG TAB PO SCH (10:00)
--- NOTE | 2019-02-21 10:31 | Consultation ---
History of Present Illness Consult date: 02/21/19 Consult reason: chest pain History of present illness: 63 year old male presented to the emergency room with pressure-like chest pain located at the left side of the chest at rest associated with some shortness of breath and diaphoresis. Patient states this pain is similar to previous cardiac pain which she had had in the past he recently had an acute myocardial infarction in January of this year where he had stents placed to the LAD. Past History Past Medical History: CAD, diabetes, hypertension, hyperlipidemia Past Surgical History: hernia repair Social history: no significant social history Family history: no significant family history Medications and Allergies Allergies Allergy/AdvReac Type Severity Reaction Status Date / Time No Known Allergies Allergy Unverified 01/28/19 13:50 Home Medications Medication Instructions Recorded Confirmed Last Taken Type Aspirin EC [Halfprin EC] 81 mg PO QDAY #30 tablet 02/02/19 02/20/19 Unknown Rx AtorvaSTATin [Lipitor] 80 mg PO QHS #30 tablet 02/02/19 02/20/19 Unknown Rx Metformin HCl [metFORMIN] 1,000 mg PO BID #60 02/02/19 02/20/19 Unknown Rx carvediloL [Coreg] 3.125 mg PO BID #60 tablet 02/02/19 02/20/19 Unknown Rx traMADoL [Ultram 50 MG tab] 50 mg PO Q4H PRN #30 tablet 02/02/19 02/20/19 Unknown Rx Pantoprazole [Protonix TAB] 40 mg PO DAILY #30 tablet 02/04/19 02/20/19 Unknown Rx Ranolazine ER [Ranexa ER] 500 mg PO BID #60 tablet 02/04/19 02/20/19 Unknown Rx Ticagrelor [Brilinta] 90 mg PO BID #90 tablet 02/04/19 02/20/19 Unknown Rx Lisinopril [Zestril TAB] 2.5 mg PO QDAY 02/20/19 02/20/19 Unknown History Sitagliptin Phosphate [Januvia] 50 mg PO QDAY 02/20/19 02/20/19 Unknown History Active Meds: Active Medications Acetaminophen (Tylenol) 650 mg PO Q4H PRN PRN Reason: Pain MILD(1-3)/Fever >100.5/VILLALOBOS Aspirin (Halfprin Ec) 81 mg PO QDAY [facility] Atorvastatin Calcium (Lipitor) 80 mg PO QHS [facility] Carvedilol (Coreg) 3.125 mg PO BID@0800,1700 [facility] Last Admin: 02/21/19 08:55 Dose: 3.125 mg Documented by: Dextrose (D50w (25gm) Syringe) 0 ml IV Q30MIN PRN; Protocol PRN Reason: Hypoglycemia Insulin Human Lispro (Humalog) 0 unit SUB-Q ACHS [facility]; Protocol Last Admin: 02/21/19 08:24 Dose: Not Given Documented by: Lisinopril (Zestril) 2.5 mg PO QDAY [facility] Magnesium Hydroxide (Milk Of Magnesia) 30 ml PO Q4H PRN PRN Reason: Constipation Morphine Sulfate (Morphine) 2 mg IV Q4H PRN PRN Reason: Pain, Moderate (4-6) Morphine Sulfate (Morphine) 2 mg IV Q5MIN PRN PRN Reason: Chest Pain unrelieved by NTG Nitroglycerin (Nitrostat) 0.4 mg SL Q5M PRN PRN Reason: Chest Pain Ondansetron HCl (Zofran) 4 mg IV Q8H PRN PRN Reason: Nausea And Vomiting Pantoprazole Sodium (Protonix) 40 mg PO DAILY [facility] Ranolazine (Ranexa Er) 500 mg PO BID [facility] Sodium Chloride (Sodium Chloride Flush Syringe 10 Ml) 10 ml IV BID [facility] Sodium Chloride (Sodium Chloride Flush Syringe 10 Ml) 10 ml IV PRN PRN PRN Reason: LINE FLUSH Ticagrelor (Brilinta) 90 mg PO BID [facility] Review of Systems All systems: negative Cardiovascular: chest pain, shortness of breath Physical Examination Vital Signs Temp Pulse Resp BP Pulse Ox 98.1 F 67 18 113/78 98 02/20/19 11:56 02/20/19 11:56 02/20/19 11:56 02/20/19 11:56 02/20/19 11:56 General appearance: no acute distress, well-nourished HEENT: Positive: PERRL, Mucus Membranes Moist Neck: Positive: neck supple, trachea midline Cardiac: Positive: Reg Rate and Rhythm, S1/S2. Negative: Audible Murmur Lungs: Positive: clear to auscultation, Normal Breath Sounds Neuro: Positive: Grossly Intact Abdomen: Positive: Soft, Active Bowel Sounds. Negative: Tender, Distended Male genitourinary: Positive: normal Skin: Positive: Clear Incision: Cardiac Cath Site Musculoskeletal: No Pain, Normal Range of Motion Extremities: Present: normal. Absent: edema Results 02/21/19 05:27 02/21/19 05:27 Coagulation 02/20/19 02/21/19 Range/Units 13:03 05:27 PT 14.0 13.5 (12.2-14.9) Sec. INR 1.07 1.02 (0.87-1.13) APTT 27.8 39.3 H (24.2-36.6) Sec. CBC 02/20/19 02/21/19 02/21/19 Range/Units 13:03 00:15 05:27 WBC 5.7 5.7 5.1 (4.5-11.0) K/mm3 RBC 4.63 4.39 4.43 (3.65-5.03) M/mm3 Hgb 14.5 13.8 13.8 (11.8-15.2) gm/dl Hct 42.5 40.2 40.4 (35.5-45.6) % Plt Count 196 177 176 (140-440) K/mm3 Lymph # 1.2 Casino Assistant Manager 1.5 (1.2-5.4) K/mm3 [place] # 0.5 Casino Assistant Manager 0.5 (0.0-0.8) K/mm3 Eos # 0.2 Casino Assistant Manager 0.3 (0.0-0.4) K/mm3 Baso # 0.0 Casino Assistant Manager 0.0 (0.0-0.1) K/mm3 Comprehensive Metabolic Panel 02/20/19 02/20/19 02/21/19 Range/Units 13:03 23:30 05:27 Sodium 137 136 L 139 (137-145) mmol/L Potassium 4.7 4.0 3.9 (3.6-5.0) mmol/L Chloride 100.4 100.4 103.3 (98-107) mmol/L Carbon Dioxide 22 21 L 22 (22-30) mmol/L BUN 12 14 13 (9-20) mg/dL Creatinine 0.8 1.0 0.8 (0.8-1.5) mg/dL Glucose 120 H 118 H 118 H (75-100) mg/dL Calcium 9.0 8.7 8.7 (8.4-10.2) mg/dL EKG interpretations - Telemetry EKG Rhythm: Sinus Rhythm Assessment and Plan 1. Chest pain 2. History of recent myocardial infarction status post PCI and stent insertion to the LAD. 3. Type 2 diabetes mellitus 4. Essential hypertension 5. Hyperlipidemia EKG shows sinus rhythm normal electrical axis anterior wall M I with anterior lateral T-wave inversions this is consistent with a recent myocardial infarction with evolutionary STT changes. EKG shows no significant change from EKGs of recent admission Plan Serum troponin levels are normal. Continue present medication.
[2019-02-21] MEDS: TICAGRELOR 90 MG TAB PO SCH ×2 (11:15→21:32)
[2019-02-21] MEDS: RANOLAZINE ER 500 MG TAB 12HR PO SCH ×2 (11:18→21:32)
[2019-02-21] MEDS: ASPIRIN EC 81 MG TAB PO SCH (11:19)
[2019-02-21] MEDS: LISINOPRIL 5 MG TAB PO SCH (11:19)
[2019-02-21] MEDS: PANTOPRAZOLE 40 MG TAB PO SCH (11:19)
--- NOTE | 2019-02-21 13:08 | Progress Note ---
Assessment and Plan Assessment and plan: -- Chest pain/angina Current Visit: No Status: Acute Patient has known history of coronary artery disease. cardiac enzymes. aspirin, sublingual nitroglycerin and IV morphine as needed. Cardiology following --Diabetes mellitus Current Visit: Yes Status: Acute Accu-Cheks. Sliding scale coverage ADA diet and insulin as needed -- Hyperlipidemia Current Visit: Yes Status: Acute We will monitor lipid profile and continue routine home medication. --Hypertension Current Visit: Yes Status: Acute Blood pressure stable. Will monitor vital signs closely. --DVT prophylaxis Current Visit: Yes Status: Acute Patient placed on subcutaneous heparin. -- Full code status Current Visit: Yes Status: Acute History Interval history: Patient seen and examined medical records reviewed Patient feels slightly better intermittent chest pain Cardiology evaluated the patient Alert awake oriented x3 Vital signs reviewed Hospitalist Physical - Constitutional Vitals: Temp Pulse Resp BP Pulse Ox 97.7 F 78 18 127/78 95 02/21/19 08:51 02/21/19 11:19 02/21/19 08:51 02/21/19 11:19 02/21/19 08:51 General appearance: Present: no acute distress, well-nourished - EENT Eyes: Present: PERRL, EOM intact - Neck Neck: Present: supple, normal ROM - Respiratory Respiratory effort: normal Respiratory: bilateral: diminished, rales, rhonchi, wheezing - Cardiovascular Rhythm: regular Heart Sounds: Present: S1 & S2 - Extremities Extremities: no ischemia, No edema - Abdominal General gastrointestinal: soft, non-tender, non-distended, normal bowel sounds - Integumentary Integumentary: Present: clear, warm - Psychiatric Psychiatric: appropriate mood/affect, cooperative - Neurologic Neurologic: CNII-XII intact, moves all extremities Results - Labs CBC & Chem 7: 02/21/19 05:27 02/21/19 05:27 Labs: Laboratory Last Values WBC 5.1 K/mm3 (4.5-11.0) 02/21/19 05:27 RBC 4.43 M/mm3 (3.65-5.03) 02/21/19 05:27 Hgb 13.8 gm/dl (11.8-15.2) 02/21/19 05:27 Hct 40.4 % (35.5-45.6) 02/21/19 05:27 MCV 91 fl (84-94) 02/21/19 05:27 MCH 31 pg (28-32) 02/21/19 05:27 MCHC 34 % (32-34) 02/21/19 05:27 RDW 12.9 % (13.2-15.2) L 02/21/19 05:27 Plt Count 176 K/mm3 (140-440) 02/21/19 05:27 Lymph % (Auto) 30.5 % (13.4-35.0) 02/21/19 05:27 [place] % (Auto) 10.2 % (0.0-7.3) H 02/21/19 05:27 Eos % (Auto) 5.9 % (0.0-4.3) H 02/21/19 05:27 Baso % (Auto) 0.8 % (0.0-1.8) 02/21/19 05:27 Lymph # 1.5 K/mm3 (1.2-5.4) 02/21/19 05:27 [place] # 0.5 K/mm3 (0.0-0.8) 02/21/19 05:27 Eos # 0.3 K/mm3 (0.0-0.4) 02/21/19 05:27 Baso # 0.0 K/mm3 (0.0-0.1) 02/21/19 05:27 Seg Neutrophils % 52.6 % (40.0-70.0) 02/21/19 05:27 Seg Neutrophils # 2.7 K/mm3 (1.8-7.7) 02/21/19 05:27 PT 13.5 Sec. (12.2-14.9) 02/21/19 05:27 INR 1.02 (0.87-1.13) 02/21/19 05:27 APTT 39.3 Sec. (24.2-36.6) H 02/21/19 05:27 Sodium 139 mmol/L (137-145) 02/21/19 05:27 Potassium 3.9 mmol/L (3.6-5.0) 02/21/19 05:27 Chloride 103.3 mmol/L (98-107) 02/21/19 05:27 Carbon Dioxide 22 mmol/L (22-30) 02/21/19 05:27 Anion Gap 18 mmol/L 02/21/19 05:27 BUN 13 mg/dL (9-20) 02/21/19 05:27 Creatinine 0.8 mg/dL (0.8-1.5) 02/21/19 05:27 Estimated GFR > 60 ml/min 02/21/19 05:27 BUN/Creatinine Ratio 16 % 02/21/19 05:27 Glucose 118 mg/dL (75-100) H 02/21/19 05:27 POC Glucose 130 (70-105) H 02/21/19 09:24 Calcium 8.7 mg/dL (8.4-10.2) 02/21/19 05:27 Magnesium 2.20 mg/dL (1.7-2.3) 02/20/19 13:03 Total Creatine Kinase 73 units/L (55-170) 02/20/19 13:03 Troponin T < 0.010 ng/mL (0.00-0.029) 02/21/19 05:27 Active Medications - Current Medications Current Medications: Generic Name Dose Route Start Last Admin Trade Name Freq PRN Reason Stop Dose Admin Acetaminophen 650 mg 02/20/19 22:25 Tylenol PO Q4H PRN Pain MILD(1-3)/Fever >100.5/VILLALOBOS Aspirin 81 mg 02/21/19 10:00 02/21/19 11:19 Halfprin Ec PO 81 mg QDAY [facility] Administration Atorvastatin Calcium 80 mg 02/21/19 22:00 Lipitor PO QHS [facility]US[facility]IN Carvedilol 3.125 mg 02/21/19 08:00 02/21/19 08:55 Coreg PO 3.125 mg BID@0800,1700 [facility] Administration Dextrose 0 ml 02/20/19 22:25 D50w (25gm) Syringe IV Q30MIN PRN Hypoglycemia Protocol Insulin Human Lispro 0 unit 02/21/19 07:30 02/21/19 08:24 Humalog SUB-Q Not Given ACHS [facility] Protocol Lisinopril 2.5 mg 02/21/19 10:00 02/21/19 11:19 Zestril PO 2.5 mg QDAY [facility] Administration Magnesium Hydroxide 30 ml 02/20/19 22:25 Milk Of Magnesia PO Q4H PRN Constipation Morphine Sulfate 2 mg 02/20/19 22:25 Morphine IV Q4H PRN Pain, Moderate (4-6) Morphine Sulfate 2 mg 02/20/19 22:25 Morphine IV Q5MIN PRN Chest Pain unrelieved by NTG Nitroglycerin 0.4 mg 02/20/19 22:25 Nitrostat SL Q5M PRN Chest Pain Ondansetron HCl 4 mg 02/20/19 22:25 Zofran IV Q8H PRN Nausea And Vomiting Pantoprazole Sodium 40 mg 02/21/19 10:00 02/21/19 11:19 Protonix PO 40 mg DAILY [facility] Administration Ranolazine 500 mg 02/21/19 10:00 02/21/19 11:18 Ranexa Er PO 500 mg BID [facility] Administration Sodium Chloride 10 ml 02/21/19 10:00 02/21/19 11:20 Sodium Chloride Flush Syringe 10 Ml IV 10 ml BID [facility] Administration Sodium Chloride 10 ml 02/20/19 22:25 Sodium Chloride Flush Syringe 10 Ml IV PRN PRN LINE FLUSH Ticagrelor 90 mg 02/21/19 10:00 Brilinta PO BID [facility]
[2019-02-22] MEDS: INSULIN LISPRO 100 UNIT/ML SUB-Q SCH ×4 (08:36→22:50)
[2019-02-22] MEDS: carvediloL 3.125 MG TAB PO SCH ×2 (09:00→17:46)
[2019-02-22] MEDS: ASPIRIN EC 81 MG TAB PO SCH (09:57)
[2019-02-22] MEDS: PANTOPRAZOLE 40 MG TAB PO SCH (09:58)
[2019-02-22] MEDS: TICAGRELOR 90 MG TAB PO SCH ×2 (09:58→21:34)
[2019-02-22] MEDS: RANOLAZINE ER 500 MG TAB 12HR PO SCH ×2 (09:58→21:35)
[2019-02-22] MEDS: LISINOPRIL 5 MG TAB PO SCH (09:59)
--- NOTE | 2019-02-22 10:59 | Progress Note ---
Assessment and Plan 1. Chest pain 2. History of recent myocardial infarction status post PCI and stent insertion to the LAD. 3. Type 2 diabetes mellitus 4. Essential hypertension 5. Hyperlipidemia EKG shows sinus rhythm normal electrical axis anterior wall M I with anterior lateral T-wave inversions this is consistent with a recent myocardial infarction with evolutionary STT changes. EKG shows no significant change from EKGs of recent admission Plan Cardiac mancuso stable. Serum troponin levels are normal. Continue present medication. Subjective Date of service: 02/22/19 Interval history: Feels better no chest pains Objective Vital Signs Temp Pulse Resp BP Pulse Ox 02/22/19 09:59 77 107/69 02/22/19 09:00 77 107/69 02/22/19 07:58 98.5 F 65 18 94/56 95 02/22/19 04:33 98.4 F 02/22/19 04:32 68 18 94/55 97 02/22/19 00:24 98.4 F 02/22/19 00:23 66 18 105/65 99 02/21/19 20:39 65 02/21/19 19:54 97.4 F L 02/21/19 19:53 65 18 119/79 97 02/21/19 17:22 72 102/70 02/21/19 17:14 70 102/70 95 02/21/19 13:01 73 116/78 98 02/21/19 11:19 78 127/78 - Physical Examination General: Appears Well HEENT: Positive: PERRL, Mucus Membranes Moist Neck: Positive: neck supple, trachea midline Cardiac: Positive: Regular Rate, S1/S2, PMI, Laterally Displaced Lungs: Positive: clear to auscultation, No Wheeze, Rales, Rhonchi Neuro: Positive: Grossly Intact Abdomen: Positive: Soft, Active Bowel Sounds. Negative: Tender, Distended Skin: Positive: Clear Incision: Cardiac Cath Site Musculoskeletal: No Pain, Normal Range of Motion Extremities: Present: normal. Absent: edema
--- NOTE | 2019-02-22 18:29 | Progress Note ---
Assessment and Plan Assessment and plan: -- Chest pain/angina Current Visit: No Status: Acute Patient has known history of coronary artery disease. Serial cardiac enzymes negative. Continue aspirin, statin beta-blockers KAMILAH inhibitors sublingual nitroglycerin and IV morphine as needed. Cardiology following --h/o CAD s/p PCI: Continue current cardiac medications --Diabetes mellitus Current Visit: Yes Status: Acute Accu-Cheks. Sliding scale coverage. ADA diet and insulin as needed -- Hyperlipidemia Current Visit: Yes Status: Acute We will monitor lipid profile and continue routine home medication. --Hypertension Current Visit: Yes Status: Acute Blood pressure stable. Will monitor vital signs closely. --DVT prophylaxis Current Visit: Yes Status: Acute Patient placed on subcutaneous heparin. -- Full code status Current Visit: Yes Status: Acute Discussed with metal burnisher Dr. Peters, advised observe overnight And discharge tomorrow if stable Plan of care reviewed with the patient and his family at the bedside Possible discharge home tomorrow History Interval history: Patient seen and examined medical records reviewed Patient feels better no new complaints Vital signs noted Hospitalist Physical - Constitutional Vitals: Temp Pulse Resp BP Pulse Ox 97.9 F 65 19 104/76 96 02/22/19 12:00 02/22/19 17:46 02/22/19 12:00 02/22/19 17:46 02/22/19 17:41 General appearance: Present: no acute distress, well-nourished - EENT Eyes: Present: PERRL, EOM intact - Neck Neck: Present: supple, normal ROM - Respiratory Respiratory effort: normal Respiratory: bilateral: diminished, negative: rales, rhonchi, wheezing - Cardiovascular Rhythm: regular Heart Sounds: Present: S1 & S2 - Extremities Extremities: no ischemia, No edema - Abdominal General gastrointestinal: soft, non-tender, non-distended, normal bowel sounds - Integumentary Integumentary: Present: clear, warm - Psychiatric Psychiatric: appropriate mood/affect, cooperative - Neurologic Neurologic: CNII-XII intact, moves all extremities Results - Labs CBC & Chem 7: 02/21/19 05:27 02/21/19 05:27 Labs: Laboratory Last Values WBC 5.1 K/mm3 (4.5-11.0) 02/21/19 05:27 RBC 4.43 M/mm3 (3.65-5.03) 02/21/19 05:27 Hgb 13.8 gm/dl (11.8-15.2) 02/21/19 05:27 Hct 40.4 % (35.5-45.6) 02/21/19 05:27 MCV 91 fl (84-94) 02/21/19 05:27 MCH 31 pg (28-32) 02/21/19 05:27 MCHC 34 % (32-34) 02/21/19 05:27 RDW 12.9 % (13.2-15.2) L 02/21/19 05:27 Plt Count 176 K/mm3 (140-440) 02/21/19 05:27 Lymph % (Auto) 30.5 % (13.4-35.0) 02/21/19 05:27 [place] % (Auto) 10.2 % (0.0-7.3) H 02/21/19 05:27 Eos % (Auto) 5.9 % (0.0-4.3) H 02/21/19 05:27 Baso % (Auto) 0.8 % (0.0-1.8) 02/21/19 05:27 Lymph # 1.5 K/mm3 (1.2-5.4) 02/21/19 05:27 [place] # 0.5 K/mm3 (0.0-0.8) 02/21/19 05:27 Eos # 0.3 K/mm3 (0.0-0.4) 02/21/19 05:27 Baso # 0.0 K/mm3 (0.0-0.1) 02/21/19 05:27 Seg Neutrophils % 52.6 % (40.0-70.0) 02/21/19 05:27 Seg Neutrophils # 2.7 K/mm3 (1.8-7.7) 02/21/19 05:27 PT 13.5 Sec. (12.2-14.9) 02/21/19 05:27 INR 1.02 (0.87-1.13) 02/21/19 05:27 APTT 39.3 Sec. (24.2-36.6) H 02/21/19 05:27 Sodium 139 mmol/L (137-145) 02/21/19 05:27 Potassium 3.9 mmol/L (3.6-5.0) 02/21/19 05:27 Chloride 103.3 mmol/L (98-107) 02/21/19 05:27 Carbon Dioxide 22 mmol/L (22-30) 02/21/19 05:27 Anion Gap 18 mmol/L 02/21/19 05:27 BUN 13 mg/dL (9-20) 02/21/19 05:27 Creatinine 0.8 mg/dL (0.8-1.5) 02/21/19 05:27 Estimated GFR > 60 ml/min 02/21/19 05:27 BUN/Creatinine Ratio 16 % 02/21/19 05:27 Glucose 118 mg/dL (75-100) H 02/21/19 05:27 POC Glucose 135 (70-105) H 02/22/19 16:52 Calcium 8.7 mg/dL (8.4-10.2) 02/21/19 05:27 Magnesium 2.20 mg/dL (1.7-2.3) 02/20/19 13:03 Total Creatine Kinase 73 units/L (55-170) 02/20/19 13:03 Troponin T < 0.010 ng/mL (0.00-0.029) 02/21/19 05:27 Active Medications - Current Medications Current Medications: Generic Name Dose Route Start Last Admin Trade Name Freq PRN Reason Stop Dose Admin Acetaminophen 650 mg 02/20/19 22:25 Tylenol PO Q4H PRN Pain MILD(1-3)/Fever >100.5/VILLALOBOS Aspirin 81 mg 02/21/19 10:00 02/22/19 09:57 Halfprin Ec PO 81 mg QDAY HUSSAIN Administration Atorvastatin Calcium 80 mg 02/21/19 22:00 02/21/19 21:33 Lipitor PO 80 mg QHS HUSSAIN Administration Carvedilol 3.125 mg 02/21/19 08:00 02/22/19 17:46 Coreg PO Not Given BID@0800,1700 [facility] Dextrose 0 ml 02/20/19 22:25 D50w (25gm) Syringe IV Q30MIN PRN Hypoglycemia Protocol Insulin Human Lispro 0 unit 02/21/19 07:30 02/22/19 17:46 Humalog SUB-Q Not Given ACHS [facility] Protocol Lisinopril 2.5 mg 02/21/19 10:00 02/22/19 09:59 Zestril PO Not Given QDAY HUSSAIN Magnesium Hydroxide 30 ml 02/20/19 22:25 Milk Of Magnesia PO Q4H PRN Constipation Morphine Sulfate 2 mg 02/20/19 22:25 Morphine IV Q4H PRN Pain, Moderate (4-6) Morphine Sulfate 2 mg 02/20/19 22:25 Morphine IV Q5MIN PRN Chest Pain unrelieved by NTG Nitroglycerin 0.4 mg 02/20/19 22:25 Nitrostat SL Q5M PRN Chest Pain Ondansetron HCl 4 mg 02/20/19 22:25 Zofran IV Q8H PRN Nausea And Vomiting Pantoprazole Sodium 40 mg 02/21/19 10:00 02/22/19 09:58 Protonix PO 40 mg DAILY HUSSAIN Administration Ranolazine 500 mg 02/21/19 10:00 02/22/19 09:58 Ranexa Er PO 500 mg BID HUSSAIN Administration Sodium Chloride 10 ml 02/21/19 10:00 02/22/19 10:00 Sodium Chloride Flush Syringe 10 Ml IV 10 ml BID HUSSAIN Administration Sodium Chloride 10 ml 02/20/19 22:25 Sodium Chloride Flush Syringe 10 Ml IV PRN PRN LINE FLUSH Ticagrelor 90 mg 02/21/19 10:00 02/22/19 09:58 Brilinta PO 90 mg BID HUSSAIN Administration Nutrition/Malnutrition Assess - Dietary Evaluation Nutrition/Malnutrition Findings: Nutrition Notes Start: 02/21/19 13:21 Freq: Status: Active Protocol: Document 02/21/19 13:21 ALAN (Rec: 02/21/19 13:23 [id number]) Nutrition Notes Need for Assessment generated from: MD Order,Education Current Diagnosis Diabetes,Hypertension, Hyperlipidemia Other Pertinent Diagnosis h/o TN Current Diet cardiac/consistent CHO diet Labs/Tests POC B Subjective/Other Information MD consult for diet education. RN or Doctor in room at both attempted visits Nutrition Intervention Follow-Up By: 02/23/19 Additional Comments F/u for DM education
--- NOTE | 2019-02-23 09:53 | Progress Note ---
Assessment and Plan Chest pain Recent anterior ST elevation [place] status post primary PCI of the LAD with drug-eluting stent status post PCI of the circumflex; widely patent LAD stent on cardiac cath 02/03/19 Hyperlipidemia Ischemic cardiomyopathy EF 40-45% on previous admission Diabetes Continue medical therapy for coronary artery disease including dual antiplatelet therapy with Brilinta and aspirin. Stable, cardiac mancuso. Outpatient cardiac follow up as previously scheduled. Subjective Date of service: 02/23/19 Interval history: Patient is resting in bed comfortably. He denies chest pain. Family members are at the bedside. Objective Vital Signs Temp Pulse Pulse Pulse Pulse Resp BP 02/23/19 04:26 98.3 F 02/23/19 04:25 68 18 90/50 02/22/19 23:34 98.1 F 02/22/19 23:32 60 18 105/67 02/22/19 20:30 66 18 110/82 02/22/19 20:00 65 02/22/19 17:46 65 104/76 02/22/19 17:41 65 115/75 02/22/19 17:00 64 02/22/19 12:00 97.9 F 77 19 02/22/19 11:44 67 02/22/19 11:09 77 77 77 19 02/22/19 10:00 59 L 02/22/19 09:59 77 107/69 02/22/19 09:56 76 107/69 BP Pulse Ox 02/23/19 04:26 02/23/19 04:25 96 02/22/19 23:34 02/22/19 23:32 95 02/22/19 20:30 96 02/22/19 20:00 02/22/19 17:46 02/22/19 17:41 96 02/22/19 17:00 02/22/19 12:00 105/58 02/22/19 11:44 95 02/22/19 11:09 99 02/22/19 10:00 02/22/19 09:59 02/22/19 09:56 95 - Physical Examination General: Appears Well HEENT: Positive: PERRL Neck: Positive: trachea midline Cardiac: Positive: Reg Rate and Rhythm Lungs: Positive: Decreased Breath Sounds Neuro: Positive: Grossly Intact Abdomen: Positive: Soft Extremities: Absent: edema
[2019-02-23] MEDS: RANOLAZINE ER 500 MG TAB 12HR PO SCH (10:37)
[2019-02-23] MEDS: TICAGRELOR 90 MG TAB PO SCH (10:37)
[2019-02-23] MEDS: ASPIRIN EC 81 MG TAB PO SCH (10:37)
[2019-02-23] MEDS: PANTOPRAZOLE 40 MG TAB PO SCH (10:37)
[2019-02-23] MEDS: carvediloL 3.125 MG TAB PO SCH ×2 (10:38→18:39)
[2019-02-23] MEDS: INSULIN LISPRO 100 UNIT/ML SUB-Q SCH ×3 (10:38→18:38)
[2019-02-23] MEDS: LISINOPRIL 5 MG TAB PO SCH (10:39)
[2019-02-23 13:06] VITALS: BP 100/70
--- NOTE | 2019-02-23 16:51 | Discharge Summary ---
Providers - Providers Date of Admission: 02/20/19 22:25 Date of discharge: 02/23/19 Attending physician: JAMARCUS GARCIA 02/20/19 Consult to Cardiac Rehabilitation [CONS] Routine Reason For Exam: Phase I 02/20/19 12:20 Consult to Physician [CONS] Urgent Comment: Consulting Provider: MARISSA EDWARDS Physician Instructions: Reason For Exam: abnormal ekg low bp 02/20/19 22:27 Consult to Dietitian/Nutrition [CONS] Routine Physician Instructions: Reason For Exam: Reason for Consult: Diet education Hospitalization Reason for admission: Chest pain Condition: Stable Pertinent studies: CXR Hospital course: 63-year-old male patient with known history of coronary artery disease s/p PCI/stent in Jan 2019, hypertension, hyperlipidemia and diabetes mellitus. was admitted through ER with complains of Lt sided chest pain. Admitted ,symptomatically managed.Evaluated by cardiology,medications optimised.Serial cardiac enzymes neg,no evidence of stent thrombosis. Patient's symptoms significantly improved. Today pt is comfortable,no new complaints,vital signs stable. Stable at discharge. -- Chest pain/angina Patient has known history of coronary artery disease. Serial cardiac enzymes negative. aspirin, statin beta-blockers KAMILAH inhibitors sublingual nitroglycerin and IV morphine as needed. Cardiology evaluated --h/o CAD s/p PCI: Continue current cardiac medications --Diabetes mellitus Accu-Cheks. Sliding scale coverage. ADA diet and insulin as needed -- Hyperlipidemia lipid profile and Statins --Hypertension Blood pressure stable. --DVT prophylaxis Patient placed on subcutaneous heparin. Stable at discharge Disposition: -01 TO HOME OR SELFCARE Time spent for discharge: 32 min Core Measure Documentation - Palliative Care Palliative Care/ Comfort Measures: Not Applicable - Core Measures Any of the following diagnoses?: none Exam - Constitutional Vitals: Temp Pulse Resp BP Pulse Ox 98.2 F 71 17 100/70 94 02/23/19 08:11 02/23/19 11:34 02/23/19 11:00 02/23/19 11:34 02/23/19 11:34 General appearance: Present: no acute distress, well-nourished - EENT Eyes: Present: PERRL, EOM intact - Neck Neck: Present: supple, normal ROM - Respiratory Respiratory effort: normal Respiratory: bilateral: diminished, negative: rales, rhonchi, wheezing - Cardiovascular Rhythm: regular Heart Sounds: Present: S1 & S2 - Extremities Extremities: no ischemia, No edema - Abdominal General gastrointestinal: Present: soft, non-tender, non-distended, normal bowel sounds - Integumentary Integumentary: Present: clear, warm - Musculoskeletal Musculoskeletal: strength equal bilaterally - Psychiatric Psychiatric: appropriate mood/affect, cooperative - Neurologic Neurologic: CNII-XII intact, moves all extremities Plan Activity: advance as tolerated Diet: other (cardiac diet) Additional Instructions: if you have chest pain or shortness of breath, contact M.D. or go to emergency room as needed Follow up with: [facility] [Other] - 3-5 Days SUMAN ROLON MD [Staff Physician] - 7 Days
== END 2019-02-23 18:39 | disposition home or self-care (01) | DRG 303 ==
LOC: ED 11:41 → OBSVTOIN 22:25 → 4A 22:25
PROVIDERS: ADMIT Internal Medicine Geriatric Medicine; ATTEND Internal Medicine
DX: I25.119 Atherosclerotic heart disease of native coronary artery with unspecified angina pectoris (principal); E11.8 Type 2 diabetes mellitus with unspecified complications; I10 Essential (primary) hypertension; E78.5 Hyperlipidemia, unspecified; K21.9 Gastro-esophageal reflux disease without esophagitis; I25.5 Ischemic cardiomyopathy; Z95.5 Presence of coronary angioplasty implant and graft; I25.2 Old myocardial infarction; Z79.82 Long term (current) use of aspirin; Z79.899 Other long term (current) drug therapy
CPT/HCPCS: 36415; 71045; 80048; 82550; 82962; 83735; 84484; 85025; 85610; 85730; 93005; 93010; G0378; A9270-GY

== ENCOUNTER 2020-06-28 13:09 | Emergency (ER) | payer MEDICARE ==
--- NOTE | 2020-06-28 13:31 | Event Note ---
ED Screening Note ED Screening Note: CO BACK PAIN RADIATING TO FRONT WITH FREQUENCY This initial assessment/diagnostic orders/clinical plan/treatment(s) is/are subject to change based on patients health status, clinical progression and re- assessment by fellow clinical providers in the ED. Further treatment and workup at subsequent clinical providers discretion. Patient/guardian urged not to elope from the ED as their condition may be serious if not clinically assessed and managed. Initial orders include: RO UTI
--- NOTE | 2020-06-28 14:12 | Emergency Department Report ---
<MADELEINE JUAREZ - Last Filed: 06/28/20 15:43> ED Extremity Problem HPI - General Chief complaint: Extremity Injury, Upper Stated complaint: SWELLING AND PAIN IN LEFT HAND, PINKY Time Seen by Provider: 06/28/20 13:31 - Related Data Home Medications Medication Instructions Recorded Confirmed Last Taken Lisinopril [Zestril TAB] 2.5 mg PO QDAY 02/20/19 02/20/19 Unknown Sitagliptin Phosphate [Januvia] 50 mg PO QDAY 02/20/19 02/20/19 Unknown Previous Rx's Medication Instructions Recorded Last Taken Type Aspirin EC [Halfprin EC] 81 mg PO QDAY #30 tablet 02/02/19 Unknown Rx AtorvaSTATin [Lipitor] 80 mg PO QHS #30 tablet 02/02/19 Unknown Rx Metformin HCl [metFORMIN] 1,000 mg PO BID #60 02/02/19 Unknown Rx carvediloL [Coreg] 3.125 mg PO BID #60 tablet 02/02/19 Unknown Rx traMADoL [Ultram 50 MG tab] 50 mg PO Q4H PRN #30 tablet 02/02/19 Unknown Rx Pantoprazole [Protonix TAB] 40 mg PO DAILY #30 tablet 02/04/19 Unknown Rx Ranolazine ER [Ranexa ER] 500 mg PO BID #60 tablet 02/04/19 Unknown Rx Ticagrelor [Brilinta] 90 mg PO BID #90 tablet 02/04/19 Unknown Rx Allergies Allergy/AdvReac Type Severity Reaction Status Date / Time No Known Allergies Allergy Verified 06/28/20 14:01 ED Past Medical Hx - Medications Home Medications: Home Medications Medication Instructions Recorded Confirmed Last Taken Type Aspirin EC [Halfprin EC] 81 mg PO QDAY #30 tablet 02/02/19 02/20/19 Unknown Rx AtorvaSTATin [Lipitor] 80 mg PO QHS #30 tablet 02/02/19 02/20/19 Unknown Rx Metformin HCl [metFORMIN] 1,000 mg PO BID #60 02/02/19 02/20/19 Unknown Rx carvediloL [Coreg] 3.125 mg PO BID #60 tablet 02/02/19 02/20/19 Unknown Rx traMADoL [Ultram 50 MG tab] 50 mg PO Q4H PRN #30 tablet 02/02/19 02/20/19 Unknown Rx Pantoprazole [Protonix TAB] 40 mg PO DAILY #30 tablet 02/04/19 02/20/19 Unknown Rx Ranolazine ER [Ranexa ER] 500 mg PO BID #60 tablet 02/04/19 02/20/19 Unknown Rx Ticagrelor [Brilinta] 90 mg PO BID #90 tablet 02/04/19 02/20/19 Unknown Rx Lisinopril [Zestril TAB] 2.5 mg PO QDAY 02/20/19 02/20/19 Unknown History Sitagliptin Phosphate [Januvia] 50 mg PO QDAY 02/20/19 02/20/19 Unknown History ED Medical Decision Making - Medical Decision Making I evaluated patient. Patient has finger abscess with possible septic joint of MCP fifth. I agree with assessment and plan. ED Disposition Clinical Impression: Abscess of hand Disposition: [id number]/TX-[id number] ANOTHER TYPE HLTHCARE Condition: Stable Additional Instructions: You are being transferred to [facility], I spoke with Dr. Flores, hand surgeon he is going to see you in the ER at [facility] Referrals: [facility] [Other] - [facility]LLIS Print Language: STATELESS <CARLOS HA - Last Filed: 06/28/20 21:26> ED Extremity Problem HPI - General Source: patient, family Mode of arrival: Ambulatory Limitations: Language Barrier - History of Present Illness Initial comments: Polish interpretation by patient's granddaughter with patient's permission Patient is a 65-year-old male presents emergency room with complaints of left hand/pinky pain and swelling that began on May 15. Patient was bit and scratched by a cat in this region. He was given a tetanus immunization and started on Augmentin. He states that it did not improve. Last week on 06/21/2020 he saw his primary care provider and was started on Keflex with continued nonimprovement. He states that it is becoming more painful, red, difficult to move. He denies any numbness. Past medical history of GERD, diabetes, [place], hypertension. No allergies to medications. ED Review of Systems ROS: Stated complaint: SWELLING AND PAIN IN LEFT HAND, PINKY Other details as noted in HPI Comment: All other systems reviewed and negative ED Past Medical Hx - Past Medical History Hx Hypertension: Yes Hx Heart Attack/AMI: Yes Hx Congestive Heart Failure: No Hx Diabetes: Yes Hx GERD: Yes Hx Asthma: No Hx COPD: No Hx HIV: No Additional medical history: hyperlipidemia - Surgical History Hx Coronary Stent: Yes Additional Surgical History: hernia repair - Social History Smoking Status: Never Smoker Substance Use Type: None ED Physical Exam - General Limitations: Language Barrier General appearance: alert, in no apparent distress - Head Head exam: Present: atraumatic, normocephalic - Eye Eye exam: Present: normal appearance - ENT ENT exam: Present: mucous membranes moist - Respiratory Respiratory exam: Absent: respiratory distress, accessory muscle use - Extremities Exam Extremities exam: Present: other (there is edema, erythema, increased warmth, and palpable fluctuance to the left pinky finger MCP joint, pt unable to fully flex the left pinky, neurovascularly intact) - Neurological Exam Neurological exam: Present: alert, oriented X3 - Psychiatric Psychiatric exam: Present: normal affect, normal mood - Skin Skin exam: Present: warm, dry ED Course Vital Signs 06/28/20 06/28/20 13:57 17:20 Temperature 98 F 97.9 F Pulse Rate 63 60 Respiratory 18 18 Rate Blood Pressure 123/77 Blood Pressure 113/69 [Right] O2 Sat by Pulse 99 97 Oximetry - Reevaluation(s) Reevaluation #1: 06/28/[address] Madeleine Juarez, ER attending who advised that examination appears consistent with hand abscess and septic joint is also a consideration, advised transfer to hand specialist - Consultations Consultation #1: 06/28/20 14:29 Spoke with [facility] transfer line, will call back with hand specialist 06/28/20 15:[address] Flores, hand surgeon at [facility], will accept and resume care of patient, will accept transfer of patient, will see patient in the [facility] emergency department, no further recommendations at this time ED Medical Decision Making - Lab Data Result diagrams: 06/28/20 20:17 06/28/20 20:17 Lab Results 06/28/20 06/28/20 Range/Units 20:17 20:17 WBC 5.9 (4.5-11.0) K/mm3 RBC 4.39 (3.65-5.03) M/mm3 Hgb 14.8 (11.8-15.2) gm/dl Hct 42.8 (35.5-45.6) % MCV 98 H (84-94) fl MCH 34 H (28-32) pg MCHC 35 H (32-34) % RDW 12.9 L (13.2-15.2) % Plt Count 191 (140-440) K/mm3 Lymph % (Auto) 21.6 (13.4-35.0) % [place] % (Auto) 9.5 H (0.0-7.3) % Eos % (Auto) 4.8 H (0.0-4.3) % Baso % (Auto) 0.7 (0.0-1.8) % Lymph # (Auto) 1.3 (1.2-5.4) K/mm3 [place] # (Auto) 0.6 (0.0-0.8) K/mm3 Eos # (Auto) 0.3 (0.0-0.4) K/mm3 Baso # (Auto) 0.0 (0.0-0.1) K/mm3 Seg Neutrophils % 63.4 (40.0-70.0) % Seg Neutrophils # 3.8 (1.8-7.7) K/mm3 Sodium 134 L (137-145) mmol/L Potassium 4.3 (3.6-5.0) mmol/L Chloride 99.4 (98-107) mmol/L Carbon Dioxide 23 (22-30) mmol/L Anion Gap 16 mmol/L BUN 12 (9-20) mg/dL Creatinine 0.8 (0.8-1.3) mg/dL Estimated GFR > 60 ml/min BUN/Creatinine Ratio 15 % Glucose 100 (75-100) mg/dL Calcium 9.0 (8.4-10.2) mg/dL Total Bilirubin 0.90 (0.1-1.2) mg/dL AST 32 (5-40) units/L ALT 31 (7-56) units/L Alkaline Phosphatase 111 (35-129) units/L Total Protein 7.4 (6.3-8.2) g/dL Albumin 4.6 (3.9-5) g/dL Albumin/Globulin Ratio 1.6 % Vital Signs 06/28/20 06/28/20 13:57 17:20 Temperature 98 F 97.9 F Pulse Rate 63 60 Respiratory 18 18 Rate Blood Pressure 123/77 Blood Pressure 113/69 [Right] O2 Sat by Pulse 99 97 Oximetry - Medical Decision Making Polish interpretation by patient's granddaughter with patient's permission Patient is a 65-year-old male presents emergency room with complaints of left hand/pinky pain and swelling that began on May 15. Patient was bit and scratched by a cat in this region. He was given a tetanus immunization and started on Augmentin. He states that it did not improve. Last week on 06/21/2020 he saw his primary care provider and was started on Keflex with continued nonimprovement. He states that it is becoming more painful, red, difficult to move. He denies any numbness. Past medical history of GERD, daniel betes, [place], hypertension. No allergies to medications. Vitals are stable. Labs are stable. On exam:there is edema, erythema, increased warmth, and palpable fluctuance to the left pinky finger MCP joint, pt unable to fully flex the left pinky, neurovascularly intact. Appears consistent with abscess with concern of septic joint. Patient evaluated by Dr. Madeleine Juarez, ER attending who advised that examination appears consistent with hand abscess and septic joint is also a consideration, advised transfer to hand specialist. Spoke with Dr. Flores, hand surgeon at [facility], will accept and resume care of patient, will accept transfer of patient, will see patient in the [facility] emergency department, no further recommendations at this time. pt given IV vancomycin and ceftriaxone. pt will be transported via EMS. Critical care attestation.: If time is entered above; I have spent that time in minutes in the direct care of this critically ill patient, excluding procedure time. ED Disposition Is pt being admited?: No Does the pt Need Aspirin: No Time of Disposition: 15:00
[2020-06-28 17:21] VITALS: BP 113/69
[2020-06-28] MEDS ORDERED: cefTRIAXone/NS 1 GM/50 ML 1 GM/50 ML BAG IV ONE (20:09)
[2020-06-28 20:29] LABS: Basophils % (Auto) 0.7 % (0.0-1.8); Eosinophils # (Auto) 0.3 K/mm3 (0.0-0.4); Eosinophils % (Auto) 4.8 % (0.0-4.3); Hematocrit 42.8 % (35.5-45.6); Hemoglobin 14.8 gm/dl (11.8-15.2); Lymphocytes # (Auto) 1.3 K/mm3 (1.2-5.4); Lymphocytes % (Auto) 21.6 % (13.4-35.0); Mean Corpuscular HGB Conc 35 % (32-34); Mean Corpuscular Volume 98 fl (84-94); Monocytes # (Auto) 0.6 K/mm3 (0.0-0.8); Monocytes % (Auto) 9.5 % (0.0-7.3); Platelet Count 191 K/mm3 (140-440); Red Blood Count 4.39 M/mm3 (3.65-5.03); Red Cell Distribution Width 12.9 % (13.2-15.2)
[2020-06-28 20:52] LABS: Alanine Aminotransferase 31 units/L (7-56); Albumin 4.6 g/dL (3.9-5); BUN/Creatinine Ratio 15; Blood Urea Nitrogen 12 mg/dL (9-20); Hemolysis Index 3
[2020-06-28] MEDS ORDERED: VANCOMYCIN PHARMACY TO DOSE IV SCH (21:00)
[2020-06-28] MEDS ORDERED: VANCOMYCIN 1,250 MG in SODIUM CHLORIDE 0.9% 250ML 250 ML IV ONE (22:00)
== END 2020-06-28 22:29 | disposition other institution (70) ==
LOC: ED 13:09
DX: L02.512 Cutaneous abscess of left hand (principal); I10 Essential (primary) hypertension; I25.2 Old myocardial infarction; E11.9 Type 2 diabetes mellitus without complications; K21.9 Gastro-esophageal reflux disease without esophagitis; E78.5 Hyperlipidemia, unspecified; Z79.899 Other long term (current) drug therapy; Z98.890 Other specified postprocedural states
CPT/HCPCS: 36415; 80053; 85025; 96365; 96366; 96368; 99285; J0696; J3370; J7050